=== PATIENT | male | born 1985 | race Two or more races ===

== ENCOUNTER 2016-10-01 12:55 | Inpatient (IN) | payer OTHER ==
[~2016-10-01] VITALS: Ht 175.3 cm; Wt 71.5 kg
[2016-10-01 12:57] VITALS: BP 92/52; PULSE 115; RESP 15; O2SAT 100
[2016-10-01 14:54] VITALS: BP 105/66; PULSE 107; RESP 14; O2SAT 100
--- NOTE | 2016-10-01 15:13 | DRSVH ---
PROCEDURE: X-RAY CHEST ONE VIEW, PORTABLE ([id number]) INDICATIONS: fever, unknown source TECHNIQUE: One view of the chest was acquired. COMPARISON: None. FINDINGS: Surgical changes and devices: None. Lungs and pleura: No pleural effusions or pneumothorax. Lungs are clear. A nodular density in the right mid lung zone is probably caused by the nipple shadow. Mediastinum: Mediastinal contours appear normal. Heart size is normal. Bones and chest wall: No suspicious bony lesions. Overlying soft tissues appear unremarkable. IMPRESSION: No acute cardiopulmonary disease. Dictated by: Kenya Bush M.D. on 10/01/2016 at 15:10 Approved by: Kenya Bush M.D. on 10/01/2016 at 15:11
--- NOTE | 2016-10-01 15:34 | ED.REPORT ---
HPI-Fever Date of Service Oct 01, 2016 ED Provider: Nichole Moran MD 31 y/o male with a hx of meth and heroin use presents to the ED complaining of intermittent fever for a week. This morning, the pt recorded his temperature at 104.2 using oral thermometer. Associated sx include headache that only comes on with the fever, decreased appetite, joint pain and generalized weakness. He denies rash, cough, shortness of breath, rhinorrhea, joint swelling , focal weakness, dysuria, testicular pain, testicular swelling and weight loss.The pt has been taking aspirin and Tylenol regularly. The pt states my girl friend just found out she has HIV while she was at rehab a week ago. Im pretty sure I have HIV. We shared needles. He last used drugs 2 weeks ago. Nursing Notes Stated Complaint: FEVER Chief Complaint: General Complaint Nursing Notes Reviewed: Yes Allergies: Coded Allergies: No Known Allergies (Unverified , 10/01/16) No Active Prescriptions or Reported Meds General Time Seen by MD: 14:25 Chief Complaint Intermittent fever Hx Obtained From: Patient Arrived By: Walk-in Onset Occurred: 1 week ago Symptom Duration: Intermittent Location: : Joint Quality: Painful Severity: Current: Moderate Severity: Maximum: Moderate Recent Healthcare: No recent doctor visit Similar Sx Previous: No Past Medical History Past Medical History Heroin and meth user Past Surgical History denies Smoking History Current Every Day Smoker Social History Drug Use: IV drugs, Meth, THC, Other (heroin) Other Social History: Good social support Ambulatory Status Independent Review of Systems Reports: decreased appetite Denies: weight loss Constitutional: Reports: Fever, Weakness - generalized Respiratory: Denies: Non-productive cough, Shortness of breath Male: Denies Dysuria, Denies Testicular pain, Denies Testicular swelling Skin: Denies Rash Neurologic: Reports: Headache, Denies: Weakness (no focal weakness) Complete sys rev & neg: except as marked. Musculoskeletal: Reports: Joint pain, Denies: Joint swelling Allergy / Immune: Denies: Rhinorrhea Physical Exam Initial Vital Signs Vital Signs (First) Date Time Temp Pulse Resp B/P Pulse Ox O2 Delivery O2 Flow Rate FiO2 10/01/16 12:57 36.5 115 15 92/52 100 Room Air Initial VS: Reviewed Head / Eyes: Atraumatic, Normocephalic Abdomen / GI: Soft, Non-tender Extremities: Vascular intact, Neuro intact, No swelling, No tenderness General/Constitutional: Awake, Alert Distress / Hydration: Positive: Distress moderate Thin Neck: Atraumatic, Supple, Full range of motion Respiratory / Chest: Atraumatic, Breath sounds NL, Breath sounds = bilat, No respiratory distress, No rales, No rhonchi, No wheezing Cardiovascular: Regular rhythm, Heart sounds NL, No gallop, No murmurs, No rubs Heart Rate / Rhythm: Positive: Tachycardia Skin: Atraumatic, No rash, Warm, Dry Scattered scabbed skin lesions No osler nodes No splinter hemorrhages Neurologic: Oriented X3, Speech NL, No motor deficits, No sensory deficits Interpretation & Diagnostics Lab Results Interpretation Result Diagram: 10/01/16 1510 10/01/16 1510 Test 10/01/16 15:10 10/01/16 15:32 10/01/16 15:42 White Blood Count 10.5th/mm3 (3.8-10.1) Red Blood Count 4.89mil/mm3 (4.40-5.80) Hemoglobin 13.1g/dL (13.8-17.2) Hematocrit 37.6% (41.0-50.0) Mean Corpuscular Volume 76.9fL (81-100) Mean Corpuscular Hemoglobin 26.8pg (27.0-35.0) Mean Corpuscular Hemoglobin Concent 34.8% (32.0-37.0) Red Cell Distribution Width 16.0% (12.3-15.4) Platelet Count 68bil/L (150-400) Neutrophils (%) (Auto) 75.7% (40-74) Lymphocytes (%) (Auto) 6.7% (14-46) Monocytes (%) (Auto) 8.6% (4-12) Eosinophils (%) (Auto) 0.4% (0-5) Basophils (%) (Auto) 0.3% (0-3) Sodium Level 126mEq/L (134-144) Potassium Level 4.2mEq/L (3.5-5.2) Chloride Level 90mEq/L (97-108) Carbon Dioxide Level 20mmol/L (18-29) Blood Urea Nitrogen 32mg/dL (6-20) Creatinine 1.09mg/dL (0.76-1.27) Estimat Glomerular Filtration Rate 85mL/min (>59) Glucose Level 104mg/dL (60-99) Calcium Level 8.0mg/dL (8.5-10.1) Magnesium Level 2.3mg/dL (1.6-2.6) Total Bilirubin 1.1mg/dL (0.0-1.2) Aspartate Amino Transf (AST/SGOT) 62U/L (0-50) Alanine Aminotransferase (ALT/SGPT) 21U/L (0-44) Alkaline Phosphatase 168U/L (25-150) Troponin T < 0.010ug/L (0.0-0.011) Total Protein 7.5g/dL (6.4-8.4) Albumin 2.5g/dL (3.4-5.0) Hold Blue Top Tube Received (Received) Procalcitonin 16.15ng/mL (0.00-0.08) Hold [place] Top Tube Received (Received) ECG Interpretation ECG Interpretation: Sinus tachycardia. Rate 107. Time: 15:20 Interpreted by: ED physician X-Ray Chest Interpretation Chest Xray Interpretation: IMPRESSION: No acute cardiopulmonary disease. Dictated by: Kenya Bush M.D. on 10/01/2016 at 15:10 Approved by: Kenya Bush M.D. on 10/01/2016 at 15:11 View: Portable, 1 view Interpretation / Wet Read by: Interpret - Radiologist Procedures Procedure Notes: Ultrasound-guided IV placed in the left upper arm by me Re-Eval/Medical Decision Med Decision/Clinical Course 31-year-old male with history of IV drug abuse, significant other recently diagnosed with HIV presents to the emergency department with fevers over the past week. Differential diagnosis includes endocarditis, acute HIV, bacteremia. Patient has no localizing signs on physical exam or in his symptoms, raising suspicion for endocarditis or viral illness. Patient's case was discussed with infectious disease consultation, recommended testing was ordered for HIV. At this time I do not suspect the patient has AIDS with any AIDS defining occult illnesses, I am more suspicious for acute HIV. Chest x-ray was normal. Patient had tachycardia and developed a fever in the emergency department consistent with sepsis. He was admitted to the hospital with orders for broad-spectrum IV antibiotics including vancomycin and Zosyn, 3 sets of blood cultures were sent for endocarditis, he did have 2 transient episodes of mild hypotension, I believe that this will improve with better fluid hydration which was difficult in the emergency Department due to difficulties with IV access. He was admitted to the [facility] for close monitoring. Re-Evaluation/Progress : Time of Eval: 17:10 Re-Evaluation/Progress Note: Rechecked pt. Rechecked pt. Discussed Discussed lab results, imaging results, diagnosis and plan to admit. Pt understands and agrees with the plan for admission. All questions addressed. Consultation #1: Referral / Consult Name: Hector Rodriguez MD Call Returned at: 15:27 Note: Dr. Rodriguez recommends doing HIV1 and HIV2 test which will come back tomorrow. He also recommends HIV quantitative PCR which will be back in a week and sending serum cryptococcal antigen. Recommends blood cultures, chest X-ray and regular infectious workup. Consultation #2: Referral / Consult Name: Scotty Spain MD Consulted With: Hospitalist Call Returned at: 17:19 Police Clerk: Will see patient, Agrees with eval, Agrees with plan, Accepts admit Severity: Serious condition Counseled Regarding: Diagnosis, Lab results, Need for admission Discharge & Departure Impression: Primary Impression: Fever Fever type: unspecified Qualified Code: R50.9 - Fever, unspecified Disposition: ADMITTED TO HOSPITAL Discharge Condition All VS Reviewed: Yes Referrals: Crissy Gambino MD (PCP) Crit Care Except Billable Proc Time Spent: 30-74 minutes (32) Services Performed: Patient management by me, Time spent at bedside, Reviewing test results, Reviewing imaging, Discussing patient care, Documentation in record Scribe Attestation Portions of this note were transcribed by Jenni Castillo. I,, personally performed the history, physical exam and medical decision-making;I reviewed and confirmed the accuracy of the information in the transcribed note. Signed by Lindsey Cortez. 10/01/16 17:43 copies to: Crissy Gambino MD, Sarah C MD Oct 01, 2016 15:34 Jenni Castillo Oct 01, 2016 15:45
[2016-10-01 15:48] LABS: BASOPHILS % (AUTO) 0.3 % (0-3); EOSINOPHILS % (AUTO) 0.4 % (0-5); MONOCYTES % (AUTO) 8.6 % (4-12); Mean Corpuscular Hemoglobin 26.8 pg (27.0-35.0); Mean Corpuscular Volume 76.9 fL (81-100); NEUTROPHILS % (AUTO) 75.7 % (40-74); Platelet Count 68 bil/L (150-400)
[2016-10-01 15:54] LABS: TROPONIN T < 0.010 ug/L (0.0-0.011)
[2016-10-01 15:59] LABS: Magnesium 2.3 mg/dL (1.6-2.6)
[2016-10-01 16:00] VITALS: BP 94/74; PULSE 113; RESP 22; O2SAT 100
[2016-10-01] MEDS ORDERED: 0.9% Sodium Chloride 1,000 ML IV ONE ×2 (16:50)
[2016-10-01] MEDS ORDERED: Piperacillin-Tazo 3.375 Gm Inj 3.375 GM in Dextrose 5% Minibag Plus 50 ML IV ONE (17:15)
[2016-10-01] MEDS ORDERED: Vancomycin Inj 1,000 MG in IV Premix 1 EACH IV ONE (17:15)
[2016-10-01] MEDS ORDERED: Polyethylene Glycol (PEG) 17 Gm Powder PO PRN (17:50)
[2016-10-01] MEDS: Vancomycin Dose per Pharmacist XX SCH (17:50)
[2016-10-01] MEDS ORDERED: Alum-Mag Hydrox-Simeth 30 mL Suspension PO PRN (17:50)
[2016-10-01] MEDS ORDERED: Sodium Chloride LOK Flush 10 mL Syringe IVFLUSH PRN ×2 (17:55)
[2016-10-01 18:00] VITALS: BP 94/42; PULSE 119; RESP 19; O2SAT 100
--- NOTE | 2016-10-01 18:00 | PCM.HPMED ---
Subjective Date of Service Oct 01, 2016 Primary Provider: Admitting Physician: Scotty Spain MD Primary Care Physician: Crissy Gambino MD Attending Physician: Scotty Spain MD Admit Status: From the Emergency Department, Full Admit, Admit to [facility] Team, [facility] Telemetry Chief Complaint: Fevers and myalgias. History of Present Illness: This is an unfortunate 31-year-old male with a 15 year history of IV drug use. He injects primarily heroin. He also smokes crack. He has not used for about 2 weeks and has been ill for over a week with intermittent fevers myalgias and severe malaise. He denies any diarrhea, no rhinorrhea. He has had minimal photophobia. He has had headache when he does have the fevers but denies any neck stiffness. He also denies symptoms with urination but has become more dehydrated and notes his urine volume and this decreased in color is darker. He denies any diarrhea. He also denies cough or dyspnea. No orthopnea or pedal edema. GI denies any obvious skin lesions or lumps. He does have track hart extensively over her arms and legs and feet and primarily uses his lower extremities at this point for injection. He does not use his groins for injection. He denies any dysuria. He also denies any lymphadenopathy. Chest x-ray was clear multiple blood cultures were obtained. The case was discussed with Dr. Rodriguez. The patient had noted that his girlfriend, who is in rehabilitation currently, was recently diagnosed as being HIV positive. He has not been tested recently. There was concern about acute HIV seroconversion. HIV 1 and 2 as well as a PCR are ordered and pending. The patient reports no history of hepatitis. Review of Systems: All else reviewed and otherwise unremarkable except as noted in history of present illness Allergies Coded Allergies: No Known Allergies (Unverified , 10/01/16) Home Medications Tylenol as needed for pain or fever Ibuprofen as needed for pain or fever PMH IV drug use with heroin primarily Methamphetamine abuse Heroin dependence Surgical History None Family History Negative for history of IV drug dependence Social History Occupation: None Hx Alcohol Use: No (no) Hx Substance Use: Yes (IV meth and herion) Smoking Status: Current Every Day Smoker Living Arrangement: with Family Exam Vital Signs Vital Sign - Last Date Time Temp Pulse Resp B/P Pulse Ox O2 Delivery O2 Flow Rate FiO2 10/01/16 16:00 37.7 113 22 94/74 100 Room Air Exam Oriented 3. Uncomfortable. Fluent speech. Normal affect. Normal skull. Normal nose and ears. Anicteric sclera, symmetric pupils Oropharynx is unremarkable, no facial droop. Neck is supple, normal thyroid. No adenopathy. Lungs are clear, normal effort rate. Heart is regular without murmur gallop or rub., He is tachycardic. Abdomen soft, nondistended or tender. No organomegaly or focal tenderness. Extremities are free of pedal edema. Good radial and pedal pulses. He has a rapid and dynamic pulse Skin is notable for track hart over her arms and legs. No groin lesions. The patient has mild redness and flushing over his upper posterior back. There are no areas of obvious fluctuance and induration or swelling. Cranial nerves are grossly normal. Motor strength is normal in all extremities. Normal muscular tone. No neck stiffness. Lab and Diagnostics Result Diagram: 10/01/16 1510 10/01/16 1510 Assessment & Plan Febrile illness in patient with possible early sepsis, POA. The patient has a low-grade fever, tachycardia, and relative hypotension with systolic blood pressure of 92. The patient also has an elevated lactic acid. He is at risk for bacteremia and/or endocarditis. The plan is fluid resuscitation aggressively with similar 150, serial lactic acid, blood cultures 3 were drawn and obtained, PICC line for IV access, as well as empiric antibiotics with vancomycin and Zosyn. We will also obtain a 2-D echocardiogram to rule out endocarditis. HIV 1 and 2 pending, will add acute hepatitis panel as well. Volume depletion, POA. Resuscitation as outlined above Hypovolemic hyponatremia, POA. Fluid resuscitation with saline as outlined above Lactic acidosis, POA. Fluid resuscitation as above Continuous opiate dependence, heroin addiction. POA. Last used 2 weeks ago, low risk for withdrawal syndrome. Methamphetamine abuse syndrome, POA. Last use 2 weeks ago. Follow clinically. Patient is full resuscitation. Patient is admitted inpatient status withan estimated length of stay of over 2 nights. Pain Evaluation: Adequate Pain Control Resuscitation Status: CPR: Attempt Resuscitation Time spent 50 minutes Scotty Spain MD Oct 01, 2016 18:00
--- NOTE | 2016-10-01 18:31 | PCM.PHAPRO ---
Progress Date of Service: Oct 01, 2016 Fevers and myalgias. Vancomycin Management per Pharmacy: Indication: Bacteremia: fever/myalgia in a patient w/ history of IV heroine/ meth use Goal Trough: 15-20 mg/dL Labs: WBC: 10.5 Lactate: 2.7 Procalcitonin: 16.15 SrCr: 1.09 mg/dL Est CrCl: ~90 mL/min Vitals: Temp: 39.4 HR: ~120s BPM BP: 92/52 mm HG Resp Rate: 20s Nephrotoxic Risk Factors: Zosyn IV, BP is a little low but currently maintaining, pt currently being hydrated w/ NS @ 150 mL/hr Recommendation: Load: Vancomycin 1000 mg IV x 1 (given in ED) Maintenance: Vancomycin 1000 mg IV q8h (~17 mg/kg/dose) - dosing a bit higher due to youth (31 yo), male, sepsis, high heart rate due to combo of sepsis/meth , pt will likely have enhanced drug clearance due to all of these factors. Monitor SrCr and blood pressure and decrease if needed. Vanco Trough: Draw on 10/03 @ 0730 prior to 4th maintenance dose Pharmacy to continue to monitor and adjust dose as needed. Thank You, Dali Toussaint, Pharm D. Dali Toussaint Oct 01, 2016 18:31
[2016-10-01 18:44] VITALS: PULSE 117
--- NOTE | 2016-10-01 18:45 | NUR ---
Admit to [facility] Pt admitted to [facility] room 2026 from Emergency department. Report received from Tiffanie WOOD. Transferred by meagan and moved to hospital bed with 2 PA. Pt is alert and oriented. C/O chill, fever, sweating profusely. PIV x 2 with Vancomycin running @ 133mls/hr. Orders to obtain UA and to start NS IV fluid @ 150mls/hr. Pt able to void independently using urinal. Urine sent for testing. Pt's mother is at bedside. Care continues.
[2016-10-01 18:54] VITALS: BP 93/46; PULSE 72; RESP 20; O2SAT 93
[2016-10-01 19:37] LABS: APPEARANCE,URINE HAZY (CLEAR,HAZY); COLOR,URINE DARK YELLOW (YELLOW); OCCULT BLOOD,URINE SMALL (NEGATIVE); UROBILINOGEN,URINE NORMAL (NORMAL)
[2016-10-01] MEDS: 0.9% Sodium Chloride 1,000 ML IV SCH (20:32)
[2016-10-02] VITALS (8 sets, daily range): BP systolic 101–137; BP diastolic 58–80; PULSE 75–86; RESP 16–22; O2SAT 96–100
[2016-10-02] MEDS ORDERED: Piperacillin-Tazo 3.375 Gm Inj 3.375 GM in Dextrose 5% Minibag Plus 50 ML IV SCH ×2 (00:30→22:30)
[2016-10-02] MEDS: Heparin 5,000 Unit/mL Inj SUBQ SCH ×4 (00:30→17:57)
[2016-10-02] MEDS: Vancomycin 1 Gm/200 mL NS Premix IV SCH ×3 (00:58→17:56)
[2016-10-02] MEDS: 0.9% Sodium Chloride 1,000 ML IV SCH ×4 (03:05→21:23)
[2016-10-02] MEDS: Ondansetron 2 mg/mL 2 mL Inj IVPUSH PRN (03:05)
[2016-10-02 04:10] LABS: BASOPHILS % (AUTO) 0.2 % (0-3); EOSINOPHILS % (AUTO) 0.1 % (0-5); MONOCYTES % (AUTO) 12.9 % (4-12); Mean Corpuscular Hemoglobin 26.9 pg (27.0-35.0); Mean Corpuscular Volume 77.8 fL (81-100); Platelet Count 56 bil/L (150-400)
[2016-10-02 04:41] LABS: NEUTROPHILS % (AUTO) 80.6 % (40-74)
--- NOTE | 2016-10-02 05:32 | NUR ---
Emesis/Diarrhea/fever Had one large emesis , 2 large diarrhea,denied pain, A&O x3 using call light appropriately, Temp . 38.3, gave 650 tylenol . 8 Mg Zofran IV., very diaphoretic . 2 complete bed and gown changes Room air, bilateral peripheral IV , arms. intact and patent. Tele 75. Addendum: 10/02/16 at 0614 by TAE HER RN Skin issues: has many small scabs throughout , arms, legs, knees, says it is from IV drug use , has admitted poly drug abuse, possible association w HIV positive friends, Is grateful for care provided and polite. Addendum: 10/02/16 at 0633 by TAE HER RN The pt states my girl friend just found out she has HIV while she was at rehab a week ago. "Im pretty sure I have HIV. We shared needles". He last used drugs 2 weeks ago.
[2016-10-02 07:11] LABS: Hepatitis A Antibody IgM Negative (Negative); Hepatitis B Core Antibody IgM Negative (Negative)
--- NOTE | 2016-10-02 07:29 | PCM.PNMED ---
Subjective Date of Service Oct 02, 2016 Subjective Patient feels much better today. He is having fevers overnight. He is less myalgias. He denies a cough or dyspnea. No nausea. No diarrhea. Overnight multiple blood cultures staph aureus positive consistent with probable endocarditis. Hepatitis C antibodies and reflex PCR positive. Exam Vital Signs Vital Sign - Last Date Time Temp Pulse Resp B/P Pulse Ox O2 Delivery O2 Flow Rate FiO2 10/02/16 05:27 86 10/02/16 03:45 38.3 20 137/80 98 Room Air Intake and Output 10/01/16 10/01/16 10/02/16 Cumulative From/Thru 15:00 23:00 07:00 10/01/16 12:57 - 10/02/16 06:07 Intake Total 2000 ml 1420 ml 3420 ml Output Total 1750 ml 1750 ml Balance 2000 ml -330 ml 1670 ml Intake IV Total 2000 ml 1420 ml 3420 ml Output Urine Total 750 ml 750 ml Urine/Stool Mix 600 ml 600 ml Emesis 400 ml 400 ml # Bowel Movements 2 2 Exam Alert and oriented -3, no distress. Fluent speech Anicteric sclera. Lungs are clear with normal rate and effort Heart is regular without murmur gallop or rub Abdomen soft nontender, flat Extremities are free of edema. Skin is notable for numerous track hart on the legs and arms. Poor dentition IVs and Medications Medications Reviewed: Medications were reviewed in detail Lab and Diagnostics Result Diagram: 10/02/1634410/02/16344 Assessment & Plan #. Probable endocarditis, staph aureus. POA. The plan is to continue empiric antibiotics. Will stop Zosyn and continue vancomycin. We will await echo today. #. Hepatitis C, POA. No diagnosis. #. Volume depletion, POA. Improving continue Resuscitation. #. Hypovolemic hyponatremia, POA. Improving, continue Fluid resuscitation with saline as outlined above #. Lactic acidosis, POA. Resolved #. Continuous opiate dependence, heroin addiction. POA. Last used 2 weeks ago , low risk for withdrawal syndrome. #. Methamphetamine abuse syndrome, POA. Last use 2 weeks ago. Follow clinically. Patient is full resuscitation. Patient is admitted inpatient status withan estimated length of stay of over 2 nights. Resuscitation Status: CPR: Attempt Resuscitation Scotty Spain MD Oct 02, 2016 07:29
[2016-10-02] MEDS: Vancomycin Dose per Pharmacist XX SCH (07:41)
--- NOTE | 2016-10-02 12:45 | DRSVH ---
[facility] [address] [place] [address] Echocardiogram Report Name: ORLIN BLACKMON Study Date: 10/02/2016 Height: 69 in Hospital Exam Location: [facility] Weight: 138 lb Gender: Male BSA: 1.8 m2 : 1985 Age: 31 yrs BP: 137/80 mmHg Reason For Study: FEVER, ENDOCARDITIS Ordering Physician: HOSPITALIST ROSENDOHPerformed By: Jimy Briggs Referring Physician: JEFFERY ASH Interpretation Summary The study quality was technically excellent. The left ventricle is normal in size. Left ventricular systolic function is normal without focal wall motion abnormalities. Left ventricular ejection fraction is estimated to be 55%. The right ventricle is normal in size, thickness and function. The right ventricular systolic pressure is estimated at 25 mmHg assuming a right atrial pressure of 3 mm Hg. Both atria are normal in size. There is no vegetation seen on the mitral valve, aortic valve, or pulmonic valve. There is a moderate size vegetation or mass on the tricuspid valve. The mass is located on the posterior tricuspid leaflet. There is mild tricuspid regurgitation. The aortic root is normal size. Procedure: A two-dimensional transthoracic echocardiogram with color flow and Doppler was performed. The study quality was technically excellent. There is no prior echocardiogram noted for this patient. The patient was in normal sinus rhythm during the exam. Left Ventricle: The left ventricle is normal in size. There is normal left ventricular wall thickness. Left ventricular systolic function is normal without focal wall motion abnormalities. Left ventricular ejection fraction is estimated to be 55%. Assessment of diastolic parameters indicates normal left ventricular diastolic function and normal filling pressures. Right Ventricle: The right ventricle is normal in size, thickness and function. Atria: Both atria are normal in size. The interatrial septum is intact with no evidence for an atrial septal defect. Mitral Valve: The mitral valve is normal. There is no vegetation seen on the mitral valve. There is trace mitral regurgitation. Aortic Valve: The aortic valve is normal in structure and function. There is no aortic valvular vegetation. No aortic regurgitation is present. Tricuspid Valve: There is a moderate size vegetation or mass on the tricuspid valve. The mass is located on the posterior tricuspid leaflet. There is mild tricuspid regurgitation. The right ventricular systolic pressure is estimated at 25 mmHg assuming a right atrial pressure of 3 mm Hg. Pulmonic Valve: The pulmonic valve leaflets are thin and pliable; valve motion is normal. There is no vegetation on the pulmonic valve. There is trace pulmonic regurgitation. Great Vessels: The aortic root is normal size. The dimensions of the ascending aorta are normal. The pulmonary artery is normal size. The IVC is of normal diameter and collapses greater than 50% with a sniff. This suggests a low right atrial pressure of 3 mm Hg. Pericardium/ Pleura There is no pericardial effusion. There is no pleural effusion. MMode/2D Measurements & Calculations LVIDd: 4.6 cm RA long axis LVOT diam: 2.3 cm LVIDs: 3.2 cm LA A2 area: 14.3 cm AoV Opening FS: 31.6 % LA A4 area: 15.7 cm RA area EPSS: 0.06 cm LA length (vol) Ao root diam IVSd: 0.99 cm : 14.5 cm LVPWd: 0.93 cm LA vol: 40.3 ml RA vol asc Aorta Diam LA vol index : 36.5 ml RA Ao Arch Diam (Prox : 20.7 mm2 Trans): 2.7 cm IVC diam: 1.8 cm LV patel. diameter/BSA LV sys. diameter/BSA TAPSE: 3.0 cm (cm/m^2): 2.6 (cm/m^2): 1.8 Doppler Measurements & Calculations Ao V2 max MV E max lenard MV E/A: 1.6 TR max lenard : 128.0 cm/sec : 93.9 cm/sec Med Peak E' Lenard : 235.7 cm/sec Ao max P.5 mmHg MV A max lenard TR max PG Ao mean P.3 mmHg : 60.2 cm/sec E/E' med: 10.0 : 22.2 mmHg LVOT Max Lenard Lat Peak E' Lenard PA V2 max : 119.2 cm/sec : 102.5 cm/sec E/E' lat: 5.1 PA mean PG MONICA(I,D): 3.9 cm E/e' average: 7.6 : 2.0 mmHg sev ratio: 0.95 MV dec time: 0.18 sec Ao V2 mean LV V1 max PG PA V2 mean : 85.2 cm/sec : 67.9 cm/sec Ao V2 VTI LV V1 VTI: 22.0 cm PA pr(Accel) : 30.2 mmHg MONICA(V,D): 3.8 cm2 MONICA indexed to BSA (cm^2/m^2): 2.2 Reading Physician:SIENNA
--- NOTE | 2016-10-02 16:53 | DRSVH ---
PROCEDURE: X-RAY PICC LINE PLACEMENT BY NURSE ([id number]) INDICATIONS: access COMPARISON: [facility], CR, XR CHEST 1VW (PORTABLE), 10/01/2016, 14:48. FINDINGS: PICC was placed by the intravenous therapy team from the right side. Fluoroscopic spot fi lm demonstrates tip of PICC in the superior vena cava. IMPRESSION: Tip of PICC lies within the superior vena cava. Dictated by: Kenya Bush M.D. on 10/02/2016 at 16:51 Approved by: Kenya Bush M.D. on 10/02/2016 at 16:51
--- NOTE | 2016-10-02 17:34 | NUR ---
VTACH No reports of chest pain/pressure/discomfort. Tele SR 80s-low 100s no ectopy this AM until approx 1500 had three seperate instances of VTACH varying from 5 to 19 beats (asymptomatic), adminstered 12.5mg PO Metoprolol per MD orders, nothing further after 1540. Distal pulses strong and palpable. No edema noted. No reports of SOB/dizziness. SPO2 high 90s on RA. Denies cough. No reports of n/v, dark green loose BM this afternoon. Denies abdominal pain. Alert and oriented x3, STEIN, reports full sensation. Moderate decrease in strength r/t "joint pain with movement" per patient.
[2016-10-03] VITALS (10 sets, daily range): BP systolic 90–131; BP diastolic 64–78; PULSE 72–86; RESP 16–28; O2SAT 96–99
[2016-10-03] MEDS: Vancomycin 1 Gm/200 mL NS Premix IV SCH (01:00)
[2016-10-03] MEDS: Heparin 5,000 Unit/mL Inj SUBQ SCH ×3 (01:01→16:41)
[2016-10-03] MEDS: Ondansetron 2 mg/mL 2 mL Inj IVPUSH PRN (01:06)
--- NOTE | 2016-10-03 04:25 | NUR ---
V-Tach/Meds/pain Gave 8 Mg Zofran for nausea associated w Vanco, he experiences chills and nausea during infusion, 650 Tylenol PO for generalized pain . room air, Has had several 4-7 beat runs of V-Tach, asymptomatic . A&O x3 using call light appropriately, compliant and polite , appreciative to care givers, Sister Bertha visiting at beginning of shift , patient has family support. Tele: SR mid 70's w asymptomatic runs of V-Tach.
[2016-10-03 05:07] LABS: Mean Corpuscular Hemoglobin 26.8 pg (27.0-35.0); Mean Corpuscular Volume 77.8 fL (81-100)
[2016-10-03] MEDS: 0.9% Sodium Chloride 1,000 ML IV SCH ×4 (05:22→23:06)
[2016-10-03] MEDS ORDERED: Vancomycin Serum Trough XX ONE (07:30)
[2016-10-03] MEDS: Vancomycin Dose per Pharmacist XX SCH (08:30)
--- NOTE | 2016-10-03 10:07 | PCM.PHAPRO ---
Progress Fevers and myalgias. VANCOMYCIN DOSING S/O: * indication: bacteremia, BCx G+ cocci, PCT 5.71 * current regimen vanco 1000mg q 8 hours * VANCO TROUGH 14.4 DRAWN @ 0740 * time since last dose to trough 6.4 hrs * SCr 0.74 10/02 A/P: * trough low approx. 10% * increasing dose, rather than shortening interval * re-check vanco. trough after 3rd new dose trough@1600 on 10/04 * new vanco dose 1100mg q 8h Savanah Childers Pharm.D Oct 03, 2016 10:01
--- NOTE | 2016-10-03 10:34 | PCM.PNMED ---
Subjective Date of Service Oct 03, 2016 Subjective Overnight, nursing reports some nausea associated with Vanco, which improved with Zofran.Tylenol PO given for generalized pain. No fever. Today, patient reports to feel much better today. He is less myalgias. He denies a cough, SOB, CP, palpitations, headache, dizziness, or diarrhea. Exam Vital Signs Vital Sign - Last Date Time Temp Pulse Resp B/P Pulse Ox O2 Delivery O2 Flow Rate FiO2 10/03/16 05:44 37.2 73 20 109/64 96 Room Air Intake and Output 10/02/16 10/02/16 10/03/16 Cumulative From/Thru 15:00 23:00 07:00 10/01/16 12:57 - 10/03/16 06:55 Intake Total 1446 ml 3506 ml 8372 ml Output Total 2 ml 1752 ml Balance 1446 ml 3504 ml 6620 ml Intake Oral 1800 ml 1800 ml IV Total 1446 ml 1706 ml 6572 ml Output Urine Total 750 ml Urine/Stool Mix 2 ml 602 ml Emesis 400 ml # Bowel Movements 2 Exam General: Alert and oriented x3, no distress. Fluent speech. Appropriately interactive. HEENT: NCAT, Anicteric sclera. Mucosal membrane moist. Poor dentition. Lungs: clear to auscultation with normal rate and effort Cardio: regular rate and rhythm without murmur, gallop, or rub Abdomen: soft, nondistended, nontender, normoactive bowel sound. Extremities: free of edema, cyanosis, or clubbing. Mild tenderness to palpation in the DIP and PIP joints of bilateral hands. Skin: numerous track hart on the legs and arms. Diffuse excoriations that patient attributes to skin picking. Neuro: CN II-XII intact, sensation grossly intact, moving all extremities. Psych: normal mood and affect. Poor judgement and insight. IVs and Medications Medications Reviewed: Medications were reviewed in detail Lab and Diagnostics Result Diagram: 10/03/16 0500 10/02/16 5889 Cardiac Echo Impressions Interpretation Summary The study quality was technically excellent. The left ventricle is normal in size. Left ventricular systolic function is normal without focal wall motion abnormalities. Left ventricular ejection fraction is estimated to be 55%. The right ventricle is normal in size, thickness and function. The right ventricular systolic pressure is estimated at 25 mmHg assuming a right atrial pressure of 3 mm Hg. Both atria are normal in size. There is no vegetation seen on the mitral valve, aortic valve, or pulmonic valve. There is a moderate size vegetation or mass on the tricuspid valve. The mass is located on the posterior tricuspid leaflet. There is mild tricuspid regurgitation. The aortic root is normal size. Assessment & Plan 31-year-old male with a 15 year history of IV drug use, primarily heroin, presenting to the hospital for a week of intermittent fevers myalgias and severe malaise. The patient had noted that his girlfriend, who is in rehabilitation currently, was recently diagnosed as being HIV positive. #. Acute endocarditis, staph aureus. POA, active. - Blood culture positive for staph aureus, pending result for methicillin resistance status. - Echo shows vegetations on the tricuspid valve as above. - continue vancomycin per pharmacy. - Repeat blood culture today. - Follow clinically. #. Hepatitis C, POA, active. - HCV genotype and Quantitative ordered. - Defer to outpatient follow up with GI. #. Volume depletion, POA. Improving continue Resuscitation. Continue NS at 150mls/hr. #. Hypovolemic hyponatremia, POA. Improving, continue Fluid resuscitation with saline as outlined above #. Lactic acidosis, POA. Resolved #. Continuous opiate dependence, heroin addiction. POA. Last used 2 weeks ago , low risk for withdrawal syndrome. #. Methamphetamine abuse syndrome, POA. Last use 2 weeks ago. Follow clinically. Patient is full resuscitation. Patient is admitted inpatient status withan estimated length of stay of over 2 nights. Pain Evaluation: Adequate Pain Control Resuscitation Status: CPR: Attempt Resuscitation Attending Statement Mr. Ayers was seen and examined with Dr. Rivero on October 03. I participated in all aspects of this service. I agree with her assessment and plan and documentation. Sri Rivero DO Oct 03, 2016 07:42 Scotty Spain MD Oct 03, 2016 15:40
[2016-10-03] MEDS: Vancomycin Inj 1,250 MG in 0.9% Sodium Chloride 250 ML IV SCH (16:42)
--- NOTE | 2016-10-03 16:58 | NUR ---
Social Work- Multidisciplinary Rounds Pt discussed in rounds. Pt has endocarditis and will require long hospitalization for treatment. ID is following. SW requested to see pt related to IVDU. SW unable to see pt today due to high census. SW will continue to follow to complete CD assessment. Frida Smith MSW
--- NOTE | 2016-10-03 18:28 | NUR ---
Chills Patient experienced mod-sev chills in early afternoon after a shower, warm blankets x 2 given, afebrile, eventually resolved after 15 minutes. Patient continues to receive vancomycin, trough 14.4 this a.m.
[2016-10-03] MEDS: HYDROcodone-APAP 5-325 mg Tablet PO PRN (18:34)
--- NOTE | 2016-10-03 18:41 | NUR ---
Pain Patient c/o 09/20 left abd pain, first incidence of pain during shift. [place] x 2 admin, will continue to monitor efficacy.
[2016-10-04] VITALS (7 sets, daily range): BP systolic 110–119; BP diastolic 60–76; PULSE 69–83; RESP 16–24; O2SAT 96–98
[2016-10-04] MEDS: Vancomycin Inj 1,250 MG in 0.9% Sodium Chloride 250 ML IV SCH (00:14)
[2016-10-04] MEDS: Heparin 5,000 Unit/mL Inj SUBQ SCH ×3 (00:44→16:42)
[2016-10-04] MEDS: 0.9% Sodium Chloride 1,000 ML IV SCH (01:52)
[2016-10-04 04:35] LABS: BASOPHILS % (AUTO) 0.1 % (0-3); EOSINOPHILS % (AUTO) 0.7 % (0-5); MONOCYTES % (AUTO) 7.1 % (4-12); Mean Corpuscular Hemoglobin 26.8 pg (27.0-35.0); Mean Corpuscular Volume 78.8 fL (81-100); NEUTROPHILS % (AUTO) 79.7 % (40-74); Platelet Count 143 bil/L (150-400)
--- NOTE | 2016-10-04 06:28 | NUR ---
NOC PT is a very pleasant and appreciative young man. PT does appear quite ill. At one point RN was called into the room as pt was having severe rigors. His temp at the time was only 37.6, but pt was shaking violently. PT also was c/o severe L sided abdominal pain. Morphine and tylenol were administered with good relief. Demerol was requested, but no order has been received at this time. PT is up ad ronnie to the bathroom. Lab called to report 2/2 gram+ cocci probable staph. This was passed to Dr Nava via text. No arrythmias noted this shift. PT has been in SR. R PICC works well. WBC increased this am to 22.5. Talked to pt about his desire to achieve sobriety again and states that his SO has been sober for over 6 months. WIll CTM at this time and continue with IV abx per MD notes.
[2016-10-04] MEDS ORDERED: KCl 40 mEq/D5W 500 mL 40 MEQ in IV Premix 1 EACH IV ONE (08:10)
[2016-10-04] MEDS ORDERED: CeFAZolin Inj 1 GM in IV Premix 1 EACH IV SCH (09:10)
[2016-10-04] MEDS: HYDROcodone-APAP 5-325 mg Tablet PO PRN (09:23)
--- NOTE | 2016-10-04 11:23 | NUR ---
Social Work Note: Multidisciplinary Rounds Pt discussed in AM rounds today, Per MD pt condition is unchanged. Pt will require long hospitalization for IV abx treatment due to endocarditis. ID is following. SW will continue to follow to complete substance use assessment pending MD order. RAZ Garcia
[2016-10-04] MEDS: Nafcillin Inj 2,000 MG in Dextrose 5% Minibag Plus 100 ML IV SCH ×3 (12:27→19:35)
[2016-10-04] MEDS ORDERED: Vancomycin Serum Trough XX ONE (16:00)
--- NOTE | 2016-10-04 18:02 | NUR ---
ABX Pt's ABX switch to Nafcillin per MD's order. pt tolerated infusion well.
--- NOTE | 2016-10-04 18:12 | PCM.PNMED ---
Subjective Date of Service Oct 04, 2016 Subjective Overnight, Patient reports "rough" night. Didn't sleep well, however feels okay today. Today, patient reports to feel much better today. He headache, dizziness, sore throat, cough, chest pain, shortness of breath, abdominal pain, nausea, vomiting , constipation, and diarrhea. Exam Vital Signs Vital Sign - Last Date Time Temp Pulse Resp B/P Pulse Ox O2 Delivery O2 Flow Rate FiO2 10/04/16 16:45 37.3 73 22 113/72 98 Room Air Intake and Output 10/03/16 10/03/16 10/04/16 Cumulative From/Thru 15:00 23:00 07:00 10/01/16 12:57 - 10/04/16 06:41 Intake Total 3121 ml 400 ml 85751 ml Output Total 700 ml 600 ml 3052 ml Balance 2421 ml -200 ml 8841 ml Intake Oral 1638 ml 400 ml 3838 ml IV Total 1483 ml 8055 ml Output Urine Total 600 ml 1350 ml Stool Total 700 ml 700 ml Urine/Stool Mix 602 ml Emesis 400 ml # Voids 4 3 7 # Bowel Movements 2 Exam General: Alert and oriented x3, no distress. Fluent speech. Appropriately interactive. HEENT: NCAT, Anicteric sclera. Mucosal membrane moist. Poor dentition. Lungs: clear to auscultation with normal rate and effort Cardio: regular rate and rhythm without murmur, gallop, or rub Abdomen: soft, nondistended, nontender, normoactive bowel sound. Extremities: free of edema, cyanosis, or clubbing. Mild tenderness to palpation in the DIP and PIP joints of bilateral hands. Skin: numerous track hart on the legs and arms. Diffuse excoriations that patient attributes to skin picking. Neuro: CN II-XII intact, sensation grossly intact, moving all extremities. Psych: normal mood and affect. Poor judgement and insight. IVs and Medications Medications Reviewed: Medications were reviewed in detail Lab and Diagnostics Result Diagram: 10/04/1641410/04/16414 Cardiac Echo Impressions Interpretation Summary The study quality was technically excellent. The left ventricle is normal in size. Left ventricular systolic function is normal without focal wall motion abnormalities. Left ventricular ejection fraction is estimated to be 55%. The right ventricle is normal in size, thickness and function. The right ventricular systolic pressure is estimated at 25 mmHg assuming a right atrial pressure of 3 mm Hg. Both atria are normal in size. There is no vegetation seen on the mitral valve, aortic valve, or pulmonic valve. There is a moderate size vegetation or mass on the tricuspid valve. The mass is located on the posterior tricuspid leaflet. There is mild tricuspid regurgitation. The aortic root is normal size. Assessment & Plan 31-year-old male with a 15 year history of IV drug use, primarily heroin, presenting to the hospital for a week of intermittent fevers myalgias and severe malaise. The patient had noted that his girlfriend, who is in rehabilitation currently, was recently diagnosed as being HIV positive. Acute endocarditis, staph aureus. Present on admission, Active. - Blood culture positive for staph aureus, methicillin sensitive. - Echo shows vegetations on the tricuspid valve as above. - Switch from vancomycin to Nafcillin. Hepatitis C, Present on admission, Active. - HCV genotype and Quantitative pending. - Defer to outpatient follow up with GI. - HIV pending. Volume depletion, Present on admission. Resolved. - Improving continue Resuscitation. - Hypovolemic hyponatremia, Present on admission.Resolved. - Improving, continue Fluid resuscitation with saline as outlined above Lactic acidosis, Present on admission. Resolved. Continuous opiate dependence, heroin addiction. Present on admission. Active. Last used 2 weeks ago, low risk for withdrawal syndrome. Methamphetamine abuse syndrome, Present on admission. Active.. - Last use 2 weeks ago. - Follow clinically. Patient is full resuscitation. Patient is admitted inpatient status within estimated length of stay of over 2 nights. Pain Evaluation: Adequate Pain Control Resuscitation Status: CPR: Attempt Resuscitation Attending Statement The patient was seen and examined together with Dr. Carrera on 10/03/2016 and I agree with the history, exam findings, and plan as outlined in the note above. I did participate in all aspects of the services provided today, including documentation and the plan of care. Patient has MSSA endocarditis of the tricuspid valve. The patient will be placed on nafcillin 2 g every 4 hours. We will follow cultures at 24 and 48 hrs. to prove sterility. LEDY CARRERA DO Oct 04, 2016 18:07 Scotty Spain MD Oct 05, 2016 11:15
--- NOTE | 2016-10-04 19:16 | NUR ---
VTach At approximately 1900 pt has 67 beats of VTach with a few SR beats in the run of VTach. MD was paged and made aware. STAT potassium was drawn and sent to lab. Waiting for results from the lab draw. Addendum: 10/05/16 at 0622 by SHAMA WELCH RN Pt is now on Amiodarone drip at 16.7ml/hr. Amiodarone drip will be completed 10/05/2016 at 2114. Pt has had no further VTach throughout the shift.
[2016-10-04] MEDS ORDERED: Amiodarone 150 mg/100 mL D5W 150 MG in IV Premix 1 EACH IV ONE (19:55)
[2016-10-04] MEDS ORDERED: Amiodarone 360 mg/200 mL D5W 360 MG, Filter, Taxol 14256-28 1 EACH in IV Premix 1 EACH IV ONE (19:55)
[2016-10-04] MEDS ORDERED: Potassium Chloride 20 mEq/15 mL 15mL Oral Soln PO ONE (20:45)
[2016-10-04] MEDS ORDERED: IV Premix 1 EACH IV ONE (20:56)
[2016-10-04] MEDS ORDERED: Amiodarone 360 mg/200 mL D5W Premix IV ONE (20:56)
[2016-10-05] VITALS (7 sets, daily range): BP systolic 113–122; BP diastolic 64–73; PULSE 61–81; RESP 16–24; O2SAT 97–100
[2016-10-05] MEDS: Heparin 5,000 Unit/mL Inj SUBQ SCH ×4 (00:30→23:42)
[2016-10-05] MEDS: Nafcillin Inj 2,000 MG in Dextrose 5% Minibag Plus 100 ML IV SCH ×7 (01:02→23:42)
[2016-10-05] MEDS: Amiodarone 360 mg/200 mL D5W IV SCH ×2 (03:14→15:10)
--- NOTE | 2016-10-05 06:41 | NUR ---
Chest Pain At approximately 2230 pt c/o 8/10 chest pain and a STAT EKG was ordered. EKG appeared SR. Pt had recently received 40mEq of potassium PO and did not want to eat anything with it. After administering the potassium pt chose to lie down in bed. It was after this that the pt's chest pain began. Pt was given Maalox but pt says that it did not help with the chest pain. Pt continues to c/o chest pain when asked.
[2016-10-05 08:34] LABS: BASOPHILS % (AUTO) 0.2 % (0-3); EOSINOPHILS % (AUTO) 0.6 % (0-5); MONOCYTES % (AUTO) 6.1 % (4-12); Mean Corpuscular Hemoglobin 27.2 pg (27.0-35.0); Mean Corpuscular Volume 79.9 fL (81-100); NEUTROPHILS % (AUTO) 79.5 % (40-74); Platelet Count 200 bil/L (150-400)
--- NOTE | 2016-10-05 14:46 | NUR ---
Social Work Note: Initial Assessment/Multidisciplinary Rounds Data& Assessment: EMR reviewed. Pt was discussed in AM rounds today, per MD pt will be here for 6 weeks of IV abx due to endocarditits. ABRAM met with pt at bedside to discuss discharge planning, SW role explained, Discharge Planning Checklist provided. Oleksandr Ayers is a 31 year old male admitted on 10/01/2016 for Sepsis and fever. Pt has [employer] insurance coverage and does not have a PCP a this time, pt declined at this time. SW to follow up with pt regarding PCP appointment closer to D/C. Pt lives in [place] with a friend and is independent at baseline with all ADL's. Pt does not use any DME and he drives. Pt does not have HH or SNF hx. Pt does not have LTC insurance or VA benefits. ABRAM provided pt with DPOA/AD paperwork. Pt denies any other needs. No other discharge needs or MD orders identified at this time. Plan: Anticipated discharge home via POV after IV abx course is completed. Pt denies any other needs. No other discharge needs or MD orders identified at this time. RAZ Garcia Addendum: 10/05/16 at 1459 by BRIAN RENO Amended: Links added.
--- NOTE | 2016-10-05 19:17 | PCM.PNMED ---
Subjective Date of Service Oct 05, 2016 Subjective Overnight events: NONE. Today, patient reports feeling much better today. He headache, dizziness, sore throat, cough, chest pain, shortness of breath, abdominal pain, nausea, vomiting , constipation, and diarrhea. Exam Vital Signs Vital Sign - Last Date Time Temp Pulse Resp B/P Pulse Ox O2 Delivery O2 Flow Rate FiO2 10/05/16 17:42 37.5 69 16 117/64 97 Room Air Intake and Output 10/04/16 10/04/16 10/05/16 Cumulative From/Thru 15:00 23:00 07:00 10/01/16 12:57 - 10/05/16 06:38 Intake Total 1445 ml 1374 ml 41956 ml Output Total 900 ml 3952 ml Balance 1445 ml 474 ml 47236 ml Intake Oral 1220 ml 500 ml 5558 ml IV Total 225 ml 874 ml 9154 ml Output Urine Total 100 ml 1450 ml Stool Total 800 ml 1500 ml Urine/Stool Mix 602 ml Emesis 400 ml # Voids 3 1 11 # Bowel Movements 1 1 4 Exam General: Alert and oriented x3, no distress. Fluent speech. Appropriately interactive. HEENT: NCAT, Anicteric sclera. Mucosal membrane moist. Poor dentition. Lungs: clear to auscultation with normal rate and effort Cardio: regular rate and rhythm without murmur, gallop, or rub Abdomen: soft, nondistended, nontender, normoactive bowel sound. Extremities: free of edema, cyanosis, or clubbing. Mild tenderness to palpation in the DIP and PIP joints of bilateral hands. Skin: numerous track hart on the legs and arms. Diffuse excoriations that patient attributes to skin picking. Neuro: CN II-XII intact, sensation grossly intact, moving all extremities. Psych: normal mood and affect. Poor judgement and insight. IVs and Medications Medications Reviewed: Medications were reviewed in detail Lab and Diagnostics Result Diagram: 10/05/16 0600 10/05/16 06 Cardiac Echo Impressions Interpretation Summary The study quality was technically excellent. The left ventricle is normal in size. Left ventricular systolic function is normal without focal wall motion abnormalities. Left ventricular ejection fraction is estimated to be 55%. The right ventricle is normal in size, thickness and function. The right ventricular systolic pressure is estimated at 25 mmHg assuming a right atrial pressure of 3 mm Hg. Both atria are normal in size. There is no vegetation seen on the mitral valve, aortic valve, or pulmonic valve. There is a moderate size vegetation or mass on the tricuspid valve. The mass is located on the posterior tricuspid leaflet. There is mild tricuspid regurgitation. The aortic root is normal size. Assessment & Plan 31-year-old male with a 15 year history of IV drug use, primarily heroin, presenting to the hospital for a week of intermittent fevers myalgias and severe malaise. The patient had noted that his girlfriend, who is in rehabilitation currently, was recently diagnosed as being Hep C positive. (Not HIV.) Acute endocarditis, staph aureus. Present on admission, Active. - Blood culture positive for staph aureus, methicillin sensitive. - Echo shows vegetations on the tricuspid valve as above. - Nafcillin IV Q4H. Hepatitis C, Present on admission, Active. - HCV genotype and Quantitative pending. - Defer to outpatient follow up with GI. - HIV pending. Volume depletion, Present on admission. Resolved. - Improving continue Resuscitation. Hypovolemic hyponatremia, Present on admission.Resolved. - Improving, continue Fluid resuscitation with saline as outlined above Lactic acidosis, Present on admission. Resolved. Continuous opiate dependence, heroin addiction. Present on admission. Active. Last used 2 weeks ago, low risk for withdrawal syndrome. Methamphetamine abuse syndrome, Present on admission. Active.. - Last use 2 weeks ago. - Follow clinically. Patient is full resuscitation. Patient is admitted inpatient status within estimated length of stay of over 2 nights. Pain Evaluation: Adequate Pain Control Resuscitation Status: CPR: Attempt Resuscitation Attending Statement The patient was seen and examined together with Dr. Carrera on 10/05/2016 and I agree with the history, exam findings, and plan as outlined in the note above. I did participate in all aspects of the services provided today, including documentation and the plan of care. 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 Anticipate a total course of 6 weeks. We will repeat cultures in the next 24 hours to prove sterilization of blood. LEDY CARRERA DO Oct 05, 2016 19:17 Scotty Spain MD Oct 06, 2016 09:05
[2016-10-06] VITALS (7 sets, daily range): BP systolic 110–121; BP diastolic 66–78; PULSE 57–71; RESP 18–24; O2SAT 97–98
[2016-10-06] MEDS: Amiodarone 360 mg/200 mL D5W IV SCH ×2 (02:28→11:32)
--- NOTE | 2016-10-06 03:32 | NUR ---
Hygiene/Pain Pt refuses assistance with hygienic care. Disheveled appearance. Pt asked several times if the bed linens and gown can be changed and he refused. Pt grimaces and hides from the light. Denies pain and refuses any ordered medications.
[2016-10-06] MEDS: Nafcillin Inj 2,000 MG in Dextrose 5% Minibag Plus 100 ML IV SCH ×2 (03:48→08:41)
[2016-10-06] MEDS: Heparin 5,000 Unit/mL Inj SUBQ SCH ×2 (08:42→17:33)
[2016-10-06 09:38] LABS: Mean Corpuscular Volume 80.2 fL (81-100)
[2016-10-06 09:39] LABS: BASOPHILS % (AUTO) 0.3 % (0-3); EOSINOPHILS % (AUTO) 0.3 % (0-5); MONOCYTES % (AUTO) 6.3 % (4-12); Mean Corpuscular Hemoglobin 27.1 pg (27.0-35.0); NEUTROPHILS % (AUTO) 79.2 % (40-74); Platelet Count 276 bil/L (150-400)
--- NOTE | 2016-10-06 13:57 | NUR ---
Social Work Note: Substance Use Assessment Current Circumstances: Per MD order, SW met with pt at bedside to discuss substance use hx and offer resources. Oleksandr Ayers is a 31 year old male admitted on 10/01/2016 for sepsis and fever of unknown origin. Per MD, pt was diagnosed with Endocarditis and requires 6 weeks of IV abx. Hx of substance use: Pt states he has been using substances for most of his adult life. Pt preference if for heroin and also uses meth. Pt typically uses $100 worth of heroin daily and "as much meth as I want, the person I used to live with gave me all my meth." Hx of tx programs/detox: Pt states he was in a [facility] inpt tx program in [place] when he was 26 years old. Pt states he was there for two and a half years. Pt states they had a inpt component and also a sober living component. Hx of w/d symptoms: Pt reports experiencing the sweats and flu like symptoms when he goes too long with using. 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 Pt states after he left there, he relapsed. Patients perception of the consequences of use: Pt does not appear to have good insight into his struggle with substance use. Pt does not seem to consider the influence his substance use has on his health or the connection his heroin use to his endocarditis. Suicide Risk: Pt denies any suicidal ideation or hx of thoughts of harming himself or others. Motivation for tx: Pt declined any resources at this time. Pt declined to speak with the CDP. Pt states if he changes his mind, he will inform SW as he will be he for 6 weeks. Discharge Plan: Anticipated discharge home with friend when medically ready. Pt declined any resources at this time. Pt declined any needs. SW to continue to follow if any needs arise. RAZ Garcia
[2016-10-06] MEDS: INFUSION IV SCH ×3 (14:19)
[2016-10-06] MEDS: NAFCILLIN IV SCH ×3 (14:19)
--- NOTE | 2016-10-06 15:20 | NUR ---
Tele/Visitors Pt has remained SR 70-80's. No reports of chest pain/discomfort. Pt AOX3. PO Amiodarone provided as scheduled/ordered. Confirmed with pt that visitors should not and will not be tolerated to bring drugs in. Pt understood. Girlfriend came to visit today. Pt cooperative with care. Double lumen PICC to right arm. ABX infusing. Care ongoing.
--- NOTE | 2016-10-06 17:44 | PCM.PNMED ---
Subjective Date of Service Oct 06, 2016 Subjective Overnight events: NONE. Today, patient reports feeling much better today than the day before. He headache, dizziness, sore throat, cough, chest pain, shortness of breath, abdominal pain, nausea, vomiting, constipation, and diarrhea. He reports withdrawing several days before admission and does not feel that he will withdraw here at [facility]. Exam Vital Signs Vital Sign - Last Date Time Temp Pulse Resp B/P Pulse Ox O2 Delivery O2 Flow Rate FiO2 10/06/16 06:00 57 10/06/16 04:13 37.3 18 112/69 97 Room Air Intake and Output 10/05/16 10/05/16 10/06/16 Cumulative From/Thru 15:00 23:00 07:00 10/01/16 12:57 - 10/06/16 04:13 Intake Total 1969 ml 400 ml 43629 ml Output Total 875 ml 1600 ml 6427 ml Balance 1094 ml -1200 ml 40179 ml Intake Oral 1270 ml 400 ml 7228 ml IV Total 699 ml 9853 ml Output Urine Total 525 ml 1975 ml Stool Total 350 ml 1850 ml Urine/Stool Mix 1600 ml 2202 ml Emesis 400 ml # Voids 11 # Bowel Movements 4 Exam General: Alert and oriented x3, no distress. Fluent speech. Appropriately interactive. HEENT: NCAT, Anicteric sclera. Mucosal membrane moist. Poor dentition. Lungs: clear to auscultation with normal rate and effort Cardio: regular rate and rhythm without murmur, gallop, or rub Abdomen: soft, nondistended, nontender, normoactive bowel sound. Extremities: free of edema, cyanosis, or clubbing. Mild tenderness to palpation in the DIP and PIP joints of bilateral hands. Skin: numerous track hart on the legs and arms. Diffuse excoriations that patient attributes to skin picking. Neuro: CN II-XII intact, sensation grossly intact, moving all extremities. Psych: normal mood and affect. Poor judgement and insight. IVs and Medications Medications Reviewed: Medications were reviewed in detail Lab and Diagnostics Result Diagram: 10/05/16 0610/05/16 06 Cardiac Echo Impressions Echo Interpretation Summary The study quality was technically excellent. The left ventricle is normal in size. Left ventricular systolic function is normal without focal wall motion abnormalities. Left ventricular ejection fraction is estimated to be 55%. The right ventricle is normal in size, thickness and function. The right ventricular systolic pressure is estimated at 25 mmHg assuming a right atrial pressure of 3 mm Hg. Both atria are normal in size. There is no vegetation seen on the mitral valve, aortic valve, or pulmonic valve. There is a moderate size vegetation or mass on the tricuspid valve. The mass is located on the posterior tricuspid leaflet. There is mild tricuspid regurgitation. The aortic root is normal size. Assessment & Plan 31-year-old male with a 15 year history of IV drug use, primarily heroin, presenting to the hospital for a week of intermittent fevers myalgias and severe malaise. The patient had noted that his girlfriend, who is in rehabilitation currently, was recently diagnosed as being Hep C positive. (Not HIV.) Acute endocarditis, staph aureus. Present on admission, Active. - Blood culture positive for staph aureus, methicillin sensitive. - Echo shows vegetations on the tricuspid valve as above. - Initially placed on Vancomycin 10/01/16. Started Nafcillin 10/04 after sensitivities resulted. - Nafcillin IV Q4H. Will continue and await recs from ID. - Brief run of VTach 10/05/16, cardiology called and placed on Amiodarone 400 BID PO. - Repeat Blood cx till negative. Hepatitis C, Present on admission, Active. - HCV genotype pending and Quantitative [id number], Hep C abd >11.0. - Defer to outpatient follow up with GI. - HIV negative. Continuous opiate dependence, heroin addiction. Present on admission. Active. Last used 2 weeks ago, low risk for withdrawal syndrome. Methamphetamine abuse syndrome, Present on admission. Active.. - Last use 2 weeks ago. - Follow clinically. Acetaminophen for mild pain when necessary. Bowel regimen Senna and MiraLAX scheduled and PRN. Zofran when necessary for nausea and vomiting. SubQ heparin held for now. SCDs in place. High-risk medications: NONE. Social: Patient is a high risk individual for loss to follow up and concerns that he may not complete treatment if discharged. Patient is full resuscitation. Disposition. Patient is admitted inpatient status within estimated length of stay of over 2 nights. Pain Evaluation: Adequate Pain Control Resuscitation Status: CPR: Attempt Resuscitation Attending Statement I interviewed and examined the patient on rounds today. No signs of withdrawal. I agree with the assessment and plan as stated above. LEDY RODAS DO Oct 06, 2016 06:14 Jerome Moya MD Oct 08, 2016 07:09
[2016-10-06] MEDS: HYDROcodone-APAP 5-325 mg Tablet PO PRN (20:55)
[2016-10-07] VITALS (9 sets, daily range): BP systolic 101–112; BP diastolic 55–66; PULSE 64–73; RESP 20; O2SAT 96–99
[2016-10-07] MEDS: Heparin 5,000 Unit/mL Inj SUBQ SCH ×3 (01:09→15:49)
--- NOTE | 2016-10-07 07:10 | NUR ---
Admit to [facility] / NOC Arrived to floor via w/c, dx: endocarditis. Will be receiving IV abx for 6 weeks per report. RUE 2lumen picc infusing Nafcillin at 47cc/hour. hx of polysubstance abuse. tele SR 63, no ectopy. Tolerating p.o. amiodorone. General diet, fluids available at bedside. PRN norco given at HS for generalized pain. Slept well thru the NOC, no c/o. CTM for changes.
[2016-10-07] MEDS: NAFCILLIN IV SCH ×3 (15:43)
[2016-10-07] MEDS: INFUSION IV SCH ×3 (15:43)
--- NOTE | 2016-10-07 18:28 | NUR ---
Blood Culture: Notified by Flory in lab of blood culture positive cocci staph 03/17 bottles. notified. Continuous IV antibiotic infusing.
--- NOTE | 2016-10-07 23:03 | PCM.PNMED ---
Subjective Date of Service Oct 07, 2016 Subjective The patient is feeling a little bit better. He has no new complaints. He has no current fever, chills or diaphoresis. Exam Vital Signs Vital Sign - Last Date Time Temp Pulse Resp B/P Pulse Ox O2 Delivery O2 Flow Rate FiO2 10/07/16 22:33 72 10/07/16 20:53 36.9 20 101/55 97 Room Air Intake and Output 10/06/16 10/06/16 10/07/16 Cumulative From/Thru 15:00 23:00 07:00 10/01/16 12:57 - 10/07/16 05:37 Intake Total 2638 ml 438 ml 52799 ml Output Total 350 ml 6777 ml Balance 2638 ml 88 ml 77021 ml Intake Oral 1860 ml 160 ml 9248 ml IV Total 778 ml 278 ml 14353 ml Output Urine Total 350 ml 2325 ml Stool Total 1850 ml Urine/Stool Mix 2202 ml Emesis 400 ml # Voids 3 14 # Bowel Movements 4 Exam General: The patient is in no distress lying supine in bed. HEENT: Head is atraumatic and normocephalic. Eyes: Pupils are equally round and reactive to light and accommodation. Extraocular muscles are intact. Sclera are white, anicteric. Subconjunctival mucosa is pink. Ears and nose are unremarkable. Oropharynx: There is no mucosal lesions, there is no thrush, there is no pharyngitis. Neck: Is supple, there are no nodes, or masses or tenderness. Chest: Is clear to auscultation and percussion. There are no rales, rhonchi, wheezes or rubs. Heart: Rate, rhythm is regular. There is a grade 2/6 systolic ejection murmur heard best left sternal border. There is no rub or gallop. Abdomen: Good bowel sounds are present. Abdomen is soft, nontender, no organomegaly or masses were appreciated. Extremities: Are symmetrical and well perfused. There is no edema, there is no cellulitis, no rash. Neurologic: There are no focal neurological deficits. Cranial nerves II through XII are intact. There are no sensory or motor deficits. Psychiatric: Patients mood is calm and he shows no sign of agitation. Genital: Deferred Rectal: Deferred Lab and Diagnostics Result Diagram: 10/06/1645 10/06/16644 Microbiology Name: ORLIN BLACKMON Age/Sex: 31/M Attend Dr: Jerome Moya MD Acct: [id number] Unit: [id number] Status: ADM IN Location: [facility] 2026-03 Re10/01/16 Disch: Specimen: [id number] Collected: 10/03/16 Status: COMP Req#: [id number] Received: 10/03/16 Source: BLOOD Sp Desc : AA Raul Dr: Sri Rivero DO Ordered: BC Comments: Collected by Nurse/Unit? Y/N N Procedure Result Verified Site Microbiology MISSY CULTURE BLOOD Final 10/06/16-700 Organism 1 STAPHYLOCOCCUS AUREUS GRAM STAIN RESULT GRAM POSITIVE COCCI ?STAPH BC BOTTLE Isolated from Single Aerobic Bottle Drawn DATE CALLED: 10/04/16 TIME CALLED: 336 CALLED BY: CARA FLOOR/DOCTOR: ISRAEL LARIOS READ BACK YES TYPE OF DRAW PERIPHERAL DRAW TIME OF POSITIVITY 0320 GRAM STAIN RESULT GRAM POSITIVE COCCI ?STAPH BC BOTTLE2 Isolated from Anaerobic Bottle of Set Drawn DATE CALLED: 10/04/16 TIME CALLED: 337 CALLED BY: CARA FLOOR/DOCTOR: ISRAEL LARIOS READ BACK YES TYPE OF DRAW PERIPHERAL DRAW TIME OF POSITIVITY 0320 Oxacillin Susceptible Penicillin Resistant Staph spp. are Susceptible to Penicillin stable penicillins, Blactam/Blactamase inhibitor combinations, antistaphyloccal cephems, and carbapenems. ISOLATED FROM TWO OF THREE BOTTLES COLLECTED 10/03 1. STAPHYLOCOCCUS AUREUS M.I.C Interp --------- ------ * CEFAZOLIN S * CLINDAMYCIN <=0.25 S * ERYTHROMYCIN 0.5 S * LINEZOLID 2 S * MOXIFLOXACIN <=0.25 S CONTINUED ON NEXT PAGE RUN DATE: 10/06/16 [facility] LIVE PAGE 2 RUN TIME: 700 Specimen Inquiry PHYSICIAN Patient: EVYCampbellORLIN [id number] (Continued) Specimen: [id number] Collected: 10/03/16-944 Received: 10/03/16-1015 (Continued) Procedure Result Verified Site MISSY CULTURE BLOOD Final (continued) 10/06/16-700 1. STAPHYLOCOCCUS AUREUS (continued) Uli Interp --------- ------ * OXACILLIN MISSY 0.5 S * RIFAMPIN <=0.5 S * TETRACYCLINE <=1 S * TRIMETHOPRIM/SULFAMETHOXAZOLE <=10 S * VANCOMYCIN 1 S Name: ORLIN BLACKMON Age/Sex: 31/M Attend Dr: Liang Barr Acct: [id number] Unit: [id number] Status: ADM IN Location: [facility] [place] 3022-1 Re10/01/16 Disch: Specimen: [id number] Collected: 10/06/16 Status: RES Rocco#: [id number] Received: 10/06/16 Source: BLOOD Sp Desc : AER Subm Dr: LEDY RODAS DO Ordered: BC Comments: Collected by Nurse/Unit? Y/N N Procedure Result Verified Site Microbiology MISSY CULTURE BLOOD Preliminary 10/07/16-1705 Organism 1 POSITIVE BLOOD CULTURE GRAM STAIN RESULT GRAM POSITIVE COCCI ?STAPSherwin BC BOTTLE Isolated from Aerobic Bottle of Set Drawn DATE CALLED: 10/07/16 TIME CALLED: 1600 CALLED BY: TORI FLOOR/DOCTOR: ASH/MARINO LARIOS READ BACK YES TYPE OF DRAW PERIPHERAL DRAW TIME OF POSITIVITY 1515 X-Rays, CTs and MRIs PROCEDURE: X-RAY CHEST ONE VIEW, PORTABLE ([id number]) INDICATIONS: fever, unknown source TECHNIQUE: One view of the chest was acquired. COMPARISON: None. FINDINGS: Surgical changes and devices: None. Lungs and pleura: No pleural effusions or pneumothorax. Lungs are clear. A nodular density in the right mid lung zone is probably caused by the nipple shadow. Mediastinum: Mediastinal contours appear normal. Heart size is normal. Bones and chest wall: No suspicious bony lesions. Overlying soft tissues appear unremarkable. IMPRESSION: No acute cardiopulmonary disease. Dictated by: Kenya Bush M.D. on 10/01/2016 at 15:10 Approved by: Kenya Bush M.D. on 10/01/2016 at 15:11 Cardiac Echo Impressions Echo Interpretation Summary The study quality was technically excellent. The left ventricle is normal in size. Left ventricular systolic function is normal without focal wall motion abnormalities. Left ventricular ejection fraction is estimated to be 55%. The right ventricle is normal in size, thickness and function. The right ventricular systolic pressure is estimated at 25 mmHg assuming a right atrial pressure of 3 mm Hg. Both atria are normal in size. There is no vegetation seen on the mitral valve, aortic valve, or pulmonic valve. There is a moderate size vegetation or mass on the tricuspid valve. The mass is located on the posterior tricuspid leaflet. There is mild tricuspid regurgitation. The aortic root is normal size. Assessment & Plan The patient is a 31-year-old white male with a 15 year history of IV drug use, primarily heroin, presenting to the hospital for a week of intermittent fevers, myalgias and severe malaise. The patient had noted that his girlfriend, who is in rehabilitation currently, was recently diagnosed as being Hep C positive. ( Not HIV.) The patient was admitted to the hospitalist service for further evaluation and treatment. Acute endocarditis, staph aureus. Present on admission, Active. - Blood culture positive for staph aureus, methicillin sensitive. Repeat blood cultures on 10/06/2016 are positive. Check ID and susceptibility. - Echo shows vegetations on the tricuspid valve as above. - Initially placed on Vancomycin 10/01/16. Started Nafcillin 10/04 after sensitivities resulted. Check ID of recent positive blood culture and susceptibilities. - Nafcillin IV Q4H. Will continue and await recs from ID. - Brief run of VTach 10/05/16, cardiology called and patient was placed on Amiodarone 400 BID PO. - Repeat Blood cultures on 10/06/2016 are positive. ID and susceptibility.. Hepatitis C, Present on admission, Active. - HCV genotype pending and Quantitative 2,450,000, Hep C abd >11.0. - Defer to outpatient follow up with GI. - HIV negative. Continuous opiate dependence, heroin addiction. Present on admission. Active. Last used 2 weeks ago, low risk for withdrawal syndrome. Methamphetamine abuse syndrome, Present on admission. Active.. - Last use 2 weeks ago. - Follow clinically. Acetaminophen for mild pain when necessary. Bowel regimen Senna and MiraLAX scheduled and PRN. Zofran when necessary for nausea and vomiting. SubQ heparin held for now. SCDs in place. High-risk medications: NONE. Social: Patient is a high risk individual for loss to follow up and concerns that he may not complete treatment if discharged. Patient is full resuscitation. Disposition. Patient will be here until blood cultures are negative. Then possible arrangements for transfer to a swing bed might be feasible. Pain Evaluation: Adequate Pain Control VTE Mechanical Devices: Venous Foot Pump Resuscitation Status: CPR: Attempt Resuscitation Liang Barr MD Oct 07, 2016 23:03
[2016-10-08] VITALS (7 sets, daily range): BP systolic 102–118; BP diastolic 61–70; PULSE 62–77; RESP 16–20; O2SAT 97–99
[2016-10-08] MEDS: Heparin 5,000 Unit/mL Inj SUBQ SCH ×3 (00:26→16:59)
[2016-10-08 05:52] LABS: BASOPHILS % (AUTO) 0.3 % (0-3); EOSINOPHILS % (AUTO) 0 % (0-5); MONOCYTES % (AUTO) 5.8 % (4-12); Mean Corpuscular Hemoglobin 27.5 pg (27.0-35.0); Mean Corpuscular Volume 82.1 fL (81-100); NEUTROPHILS % (AUTO) 78.1 % (40-74); Platelet Count 357 bil/L (150-400)
--- NOTE | 2016-10-08 06:18 | NUR ---
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 Monitor check called RN again shortly after saying pt is having a lot of PVC's. Am labs already drawn and pending for K and Mag; alerted. Pt remains asymptomatic, resting in bed. Pt denied pain, chest pain and SOB, slept most of the night, pleasant and cooperative with care.
[2016-10-08] MEDS ORDERED: CeFAZolin 2 Gm/50 mL D5W Duplex Bag IV SCH (09:05)
[2016-10-08] MEDS: CeFAZolin 2 Gm/50 mL D5W IV Premix IV SCH ×2 (11:32→17:00)
[2016-10-08] MEDS ORDERED: 0.9% Sodium Chloride 250 ML ONE (11:34)
--- NOTE | 2016-10-08 15:17 | NUR ---
Social Work: Continued d/c planning Data: Pt is on day 7 of hospitalization. EMR reviewed. Pt discussed in multidisciplinary rounds. MD ordered swing bed referral. [employer] notified UR specialist, referral to be made. [employer] met with pt at bedside and explained [facility] swing bed. Pt agreeable to this. [employer] will continue to follow. Assessment: Pt who is independent at baseline, IV drug use, currently capable of self care at this time. Plan: Referrals to be sent to [facility] for possible senior living IVABX. [employer] will continue to follow. RAZ Major
--- NOTE | 2016-10-08 15:52 | NUR ---
Swing Bed Unit Referral : Faxed referral to Adeola Randle at [facility] Swing Bed Unit [phone]
--- NOTE | 2016-10-08 17:34 | NUR ---
Activity/Nicotine: Encouraged patient to be OOB and ambulating in hallways. Patient states that he would be tempted to leave floor if he walked by the exit doors as he would like to go out and smoke. Explained that he does need to stay on unit, however we could get a nicotine patch order if he has the urge to smoke. Patient stated that he does not like nicotine patches and declined offer.
--- NOTE | 2016-10-08 23:39 | PCM.PNMED ---
Subjective Date of Service Oct 08, 2016 Subjective The patient has no new complaints today. He has no fever, no chills and no diaphoresis. Exam Vital Signs Vital Sign - Last Date Time Temp Pulse Resp B/P Pulse Ox O2 Delivery O2 Flow Rate FiO2 10/08/16 20:48 36.7 67 18 118/66 98 Room Air Intake and Output 10/07/16 10/07/16 10/08/16 Cumulative From/Thru 15:00 23:00 07:00 10/01/16 12:57 - 10/08/16 06:22 Intake Total 279 ml 2255 ml 1708 ml 88681 ml Output Total 1025 ml 0 ml 7802 ml Balance 279 ml 1230 ml 1708 ml 74854 ml Intake Oral 1722 ml 1100 ml 23444 ml IV Total 279 ml 533 ml 608 ml 04389 ml Output Urine Total 1025 ml 0 ml 3350 ml Stool Total 1850 ml Urine/Stool Mix 2202 ml Emesis 400 ml # Voids 14 # Bowel Movements 0 4 Exam General: The patient is in no distress lying supine in bed. HEENT: Head is atraumatic and normocephalic. Eyes: Pupils are equally round and reactive to light and accommodation. Extraocular muscles are intact. Sclera are white, anicteric. Subconjunctival mucosa is pink. Ears and nose are unremarkable. Oropharynx: There is no mucosal lesions, there is no thrush, there is no pharyngitis. Neck: Is supple, there are no nodes, or masses or tenderness. Chest: Is clear to auscultation and percussion. There are no rales, rhonchi, wheezes or rubs. Heart: Rate, rhythm is regular. There is a grade 2/6 systolic ejection murmur heard best left sternal border. There is no rub or gallop. Abdomen: Good bowel sounds are present. Abdomen is soft, nontender, no organomegaly or masses were appreciated. Extremities: Are symmetrical and well perfused. There is no edema, there is no cellulitis, no rash. Neurologic: There are no focal neurological deficits. Cranial nerves II through XII are intact. There are no sensory or motor deficits. Psychiatric: Patients mood is calm and he shows no sign of agitation. Genital: Deferred Rectal: Deferred Lab and Diagnostics Result Diagram: 10/08/16 0535 10/08/16 0535 Microbiology Name: ORLIN BLACKMON Age/Sex: 31/M Attend Dr: Jerome Moya MD Acct: [id number] Unit: [id number] Status: ADM IN Location: [facility] 2026-03 Re10/01/16 Disch: Specimen: [id number] Collected: 10/03/16 Status: HSANNAN Valiente#: [id number] Received: 10/03/16 Source: BLOOD Sp Desc : AA Raul Dr: Sri Rivero DO Ordered: BC Comments: Collected by Nurse/Unit? Y/N N Procedure Result Verified Site Microbiology MISSY CULTURE BLOOD Final 10/06/16-700 Organism 1 STAPHYLOCOCCUS AUREUS GRAM STAIN RESULT GRAM POSITIVE COCCI ?STAPH BC BOTTLE Isolated from Single Aerobic Bottle Drawn DATE CALLED: 10/04/16 TIME CALLED: 336 CALLED BY: CARA FLOOR/DOCTOR: ISRAEL LARIOS READ BACK YES TYPE OF DRAW PERIPHERAL DRAW TIME OF POSITIVITY 0320 GRAM STAIN RESULT GRAM POSITIVE COCCI ?STAPH BC BOTTLE2 Isolated from Anaerobic Bottle of Set Drawn DATE CALLED: 10/04/16 TIME CALLED: 337 CALLED BY: CARA FLOOR/DOCTOR: ISRAEL LARIOS READ BACK YES TYPE OF DRAW PERIPHERAL DRAW TIME OF POSITIVITY 0320 Oxacillin Susceptible Penicillin Resistant Staph spp. are Susceptible to Penicillin stable penicillins, Blactam/Blactamase inhibitor combinations, antistaphyloccal cephems, and carbapenems. ISOLATED FROM TWO OF THREE BOTTLES COLLECTED 10/03 1. STAPHYLOCOCCUS AUREUS M.I.C Interp --------- ------ * CEFAZOLIN S * CLINDAMYCIN <=0.25 S * ERYTHROMYCIN 0.5 S * LINEZOLID 2 S * MOXIFLOXACIN <=0.25 S CONTINUED ON NEXT PAGE RUN DATE: 10/06/16 [facility] LIVE PAGE 2 RUN TIME: 700 Specimen Inquiry PHYSICIAN Patient: EVYCampbellORLIN [id number] (Continued) Specimen: [id number] Collected: 10/03/16-944 Received: 10/03/16-1015 (Continued) Procedure Result Verified Site MISSY CULTURE BLOOD Final (continued) 10/06/16-700 1. STAPHYLOCOCCUS AUREUS (continued) Uli Interp --------- ------ * OXACILLIN MISSY 0.5 S * RIFAMPIN <=0.5 S * TETRACYCLINE <=1 S * TRIMETHOPRIM/SULFAMETHOXAZOLE <=10 S * VANCOMYCIN 1 S Name: ORLIN BLACKMON Age/Sex: 31/M Attend Dr: Liang Barr Acct: [id number] Unit: [id number] Status: ADM IN Location: [facility] [place] 3022-1 Re10/01/16 Disch: Specimen: [id number] Collected: 10/06/16 Status: RES Rocco#: [id number] Received: 10/06/16 Source: BLOOD Sp Desc : AER Raul Dr: LEDY RODAS DO Ordered: Comments: Collected by Nurse/Unit? Y/N N Procedure Result Verified Site Microbiology MISSY CULTURE BLOOD Preliminary 10/07/16-1705 Organism 1 POSITIVE BLOOD CULTURE GRAM STAIN RESULT GRAM POSITIVE COCCI ?TERI BC BOTTLE Isolated from Aerobic Bottle of Set Drawn DATE CALLED: 10/07/16 TIME CALLED: 1600 CALLED BY: TORI FLOOR/DOCTOR: ASH/MARINO LARIOS READ BACK YES TYPE OF DRAW PERIPHERAL DRAW TIME OF POSITIVITY 1515 X-Rays, CTs and MRIs PROCEDURE: X-RAY CHEST ONE VIEW, PORTABLE ([id number]) INDICATIONS: fever, unknown source TECHNIQUE: One view of the chest was acquired. COMPARISON: None. FINDINGS: Surgical changes and devices: None. Lungs and pleura: No pleural effusions or pneumothorax. Lungs are clear. A nodular density in the right mid lung zone is probably caused by the nipple shadow. Mediastinum: Mediastinal contours appear normal. Heart size is normal. Bones and chest wall: No suspicious bony lesions. Overlying soft tissues appear unremarkable. IMPRESSION: No acute cardiopulmonary disease. Dictated by: Kenya Bush M.D. on 10/01/2016 at 15:10 Approved by: Kenya Bush M.D. on 10/01/2016 at 15:11 Cardiac Echo Impressions Echo Interpretation Summary The study quality was technically excellent. The left ventricle is normal in size. Left ventricular systolic function is normal without focal wall motion abnormalities. Left ventricular ejection fraction is estimated to be 55%. The right ventricle is normal in size, thickness and function. The right ventricular systolic pressure is estimated at 25 mmHg assuming a right atrial pressure of 3 mm Hg. Both atria are normal in size. There is no vegetation seen on the mitral valve, aortic valve, or pulmonic valve. There is a moderate size vegetation or mass on the tricuspid valve. The mass is located on the posterior tricuspid leaflet. There is mild tricuspid regurgitation. The aortic root is normal size. Assessment & Plan The patient is a 31-year-old white male with a 15 year history of IV drug use, primarily heroin, presenting to the hospital for a week of intermittent fevers, myalgias and severe malaise. The patient had noted that his girlfriend, who is in rehabilitation currently, was recently diagnosed as being Hep C positive. ( Not HIV.) The patient was admitted to the hospitalist service for further evaluation and treatment. Acute endocarditis, staph aureus. Present on admission, Active. - Blood culture positive for staph aureus, methicillin sensitive. Repeat blood cultures on 10/06/2016 are positive. Check ID and susceptibility. - Echo shows vegetations on the tricuspid valve as above. - Initially placed on Vancomycin 10/01/16. Started Nafcillin 10/04 after sensitivities resulted. However due to increasing creatinine and concern for possible interstitial nephritis nafcillin was discontinued and Ancef was started. Check ID of recent positive blood culture and susceptibilities. - We will discontinue Nafcillin IV due to increasing creatinine and concern for possible interstitial nephritis. We will replace with Ancef 2 g iv every 8 hours. - Brief run of VTa 10/05/16, cardiology called and patient was placed on Amiodarone 400 BID PO. We will continue for now. - Repeat Blood cultures on 10/06/2016 are positive. ID and susceptibility.. We will also check repeat blood cultures today on 10/08/2016. Hepatitis C, Present on admission, Active. - HCV genotype pending and Quantitative 2,450,000, Hep C abd >11.0. - Defer to outpatient follow up with GI. - HIV negative. Continuous opiate dependence, heroin addiction. Present on admission. Active. Last used 2 weeks ago, low risk for withdrawal syndrome. Methamphetamine abuse syndrome, Present on admission. Active.. - Last use 2 weeks ago. - Follow clinically. Acetaminophen for mild pain when necessary. Bowel regimen Senna and MiraLAX scheduled and PRN. Zofran when necessary for nausea and vomiting. SubQ heparin held for now. SCDs in place. High-risk medications: NONE. Social: Patient is a high risk individual for loss to follow up and concerns that he may not complete treatment if discharged. Patient is full resuscitation. Disposition. Patient will be here until blood cultures are negative. Then possible arrangements for transfer to a swing bed might be feasible for continued IV antibiotics. Pain Evaluation: Adequate Pain Control VTE Mechanical Devices: Venous Foot Pump Resuscitation Status: CPR: Attempt Resuscitation Liang Barr MD Oct 08, 2016 23:39
[2016-10-09] VITALS (9 sets, daily range): BP systolic 105–125; BP diastolic 64–74; PULSE 60–71; RESP 18–20; O2SAT 94–99
[2016-10-09] MEDS: Heparin 5,000 Unit/mL Inj SUBQ SCH ×4 (00:53→23:43)
[2016-10-09] MEDS: CeFAZolin 2 Gm/50 mL D5W IV Premix IV SCH ×4 (00:53→23:44)
--- NOTE | 2016-10-09 04:33 | NUR ---
Uneventful Night: Pt had an uneventful night, no c/o pain, chest pain or SOB. Pt slept most of the night, pleasant and cooperative with care.
[2016-10-09 06:01] LABS: BASOPHILS % (AUTO) 0.2 % (0-3); EOSINOPHILS % (AUTO) 0.4 % (0-5); Mean Corpuscular Hemoglobin 26.9 pg (27.0-35.0); Mean Corpuscular Volume 83.2 fL (81-100); NEUTROPHILS % (AUTO) 77.2 % (40-74); Platelet Count 357 bil/L (150-400)
[2016-10-09 06:26] LABS: Magnesium 1.9 mg/dL (1.6-2.6)
[2016-10-09 07:43] LABS: ERYTHROCYTE SEDIMENTATION RATE 76 mm/hr (0-15)
--- NOTE | 2016-10-09 09:26 | PCM.CONPHA ---
Subjective Fevers and myalgias. Objective Vital Signs Date Time Temp Pulse Resp B/P Pulse Ox O2 Delivery O2 Flow Rate FiO2 10/09/16 09:06 60 10/09/16 08:59 36.6 71 20 115/65 94 Room Air 10/09/16 05:31 65 10/09/16 05:29 36.7 63 18 121/69 98 Room Air 10/09/16 00:51 36.8 67 18 113/64 99 Room Air 10/08/16 20:48 36.7 67 18 118/66 98 Room Air 10/08/16 17:15 37.0 72 20 108/64 99 Room Air 10/08/16 12:59 36.8 65 18 117/70 98 Room Air Intake and Output 10/07/16 10/08/16 10/09/16 00:00 00:00 00:00 Intake Total 3038 ml 2972 ml 3456 ml Output Total 1600 ml 1375 ml 1175 ml Balance 1438 ml 1597 ml 2281 ml Weight (Kilograms): 71.500 Height (Feet): 5 Height (Inches): 9.00 Test 10/01/16 15:10 10/01/16 15:32 10/01/16 15:42 10/01/16 19:00 Troponin T < 0.010ug/L (0.0-0.011) Hold Blue Top Tube Received (Received) Hold [place] Top Tube Received (Received) Cryptococcus Antibody Negative (Neg:<1:2) HIV (1&2) Ag and Ab, 4th Generation Non reactive (Non Reactive) Urine Opiates Screen Positive Urine Methadone Screen Negative Urine Barbiturates Screen Negative Urine Amphetamines Screen Negative Urine Benzodiazepines Screen Negative Urine Cocaine Metabolite Screen Negative Urine Cannabinoids Screen Negative Hepatitis A IgM Antibody Negative (Negative) Hepatitis B Surface Antigen Negative (Negative) Hepatitis B Core IgM Antibody Negative (Negative) Hepatitis C Antibody >11.0s/co ratio Hepatitis C Antibody Comment Comment (.) Test 10/01/16 19:02 10/01/16 20:52 10/03/16 14:10 10/04/16 09:10 Urine Color Dark yellow (YELLOW) Urine Appearance Hazy (CLEAR,HAZY) Urine pH 5.0 (5.0-8.0) Urine Specific [place] 1.010 (1.003-1.035) Urine Protein 30mg/dL (NEG,TRACE) Urine Glucose (UA) Negativemg/dL (NEGATIVE) Urine Ketones Negativemg/dL (NEGATIVE) Urine Occult Blood Small (NEGATIVE) Urine Nitrite Negative (NEGATIVE) Urine Bilirubin Negative (NEGATIVE) Urine Urobilinogen Normalmg/dL (NORMAL) Urine Leukocyte Esterase Negative (NEGATIVE) Urine RBC 0-2/hpf (0-2) Urine WBC 0-5/hpf (0-5) Urine Epithelial Cells Occasional/hpf (NONE-MOD) Urine Crystals Amorphous urates (NONE Urine Bacteria Few/hpf (NONE-FEW) Urine Hyaline Casts None/lpf (NONE) Urine Granular Casts None seen (NONE SEEN) Urine Waxy Casts None seen (NONE SEEN) Urine Red Blood Cell Casts None seen (NONE SEEN) Urine White Blood Cell Casts None seen (NONE SEEN) Urine Mucus None seen (None Seen) Urine Trichomonas None seen (NONE SEEN) Urine Yeast None (NONE SEEN) Urinalysis Comment None Urine Culture Reflexed Not indicated Lactic Acid Level 2.0mmol/L (0.4-2.0) Hepatitis C Virus Quantitation [id number] (.) Hepatitis C RNA (PCR) log10 6.389 (.) Hepatitis C Genotype 1a (.) Hepatitis C Genotype Comment Comment (.) Hepatitis C Comment Comment (.) Vancomycin Level Trough 16.0mcg/mL Test 10/06/16 06:45 10/08/16 17:00 10/09/16 05:20 HIV-1 RNA (PCR) Commentcopies/mL (.) HIV-1 RNA (PCR) log10 Value (.) Hold Urine Received (Received) White Blood Count 11.9th/mm3 (3.8-10.1) Red Blood Count 2.86mil/mm3 (4.40-5.80) Hemoglobin 7.7g/dL (13.8-17.2) Hematocrit 23.8% (41.0-50.0) Mean Corpuscular Volume 83.2fL (81-100) Mean Corpuscular Hemoglobin 26.9pg (27.0-35.0) Mean Corpuscular Hemoglobin Concent 32.4% (32.0-37.0) Red Cell Distribution Width 16.5% (12.3-15.4) Platelet Count 357bil/L (150-400) Neutrophils (%) (Auto) 77.2% (40-74) Lymphocytes (%) (Auto) 16.1% (14-46) Monocytes (%) (Auto) 5.0% (4-12) Eosinophils (%) (Auto) 0.4% (0-5) Basophils (%) (Auto) 0.2% (0-3) Erythrocyte Sedimentation Rate 76mm/hr (0-15) Sodium Level 144mEq/L (134-144) Potassium Level 3.8mEq/L (3.5-5.2) Chloride Level 113mEq/L (97-108) Carbon Dioxide Level 20mmol/L (18-29) Blood Urea Nitrogen 7mg/dL (6-20) Creatinine 1.04mg/dL (0.76-1.27) Estimat Glomerular Filtration Rate 90mL/min (>59) Glucose Level 93mg/dL (60-99) Calcium Level 7.4mg/dL (8.5-10.1) Magnesium Level 1.9mg/dL (1.6-2.6) Total Bilirubin 0.2mg/dL (0.0-1.2) Aspartate Amino Transf (AST/SGOT) 27U/L (0-50) Alanine Aminotransferase (ALT/SGPT) 17U/L (0-44) Alkaline Phosphatase 63U/L (25-150) C-Reactive Protein 2.6mg/dL (0.0-0.5) Total Protein 5.9g/dL (6.4-8.4) Albumin 2.1g/dL (3.4-5.0) Procalcitonin 0.13ng/mL (0.00-0.08) Assessment/Plan Assessment/Plan PARENTERAL NUTRITION ORDERS 4 09-Oct-16 Standard Hang Time: 2100 Substrates Total kcal: 873 AMINO ACIDS 70 g DEXTROSE 145 g Total Volume (mL): 1000 LIPIDS 10 g Sterile Water for Injection mL To Infuse Over (hrs): 24 Total Volume 1000 mL At at a rate of (mL/hr): 42 Additives Sodium Chloride 20 mEq "typical" daily requirements Sodium Acetate 10 mEq Sodium 50-120mEq Potassium Chloride 30 mEq Potassium 60-120mEq Potassium Phosphate 20 mEq Phosphate 20-40mEq Calcium Gluconate 9 mEq Magnesium 8-32mEq Magnesium Sulfate 4 mEq Calcium 9-22mEq Acetate* 80-120mEq Chloride* 80-120mEq Regular Insulin units *Depending on acid-base status Famotidine mg Multivitamins 1 std dose Insulin Regimen Trace Elements 1 std dose none Thiamine 100 mg Regular Low Intensity Subcut Folic Acid 1 mg Regular Medium Intensity Subcut Ascorbic Acid mg Regular High Intensity Subcut Regular Insulin Infusion Other: Special Instructions: To be infused via central line only. For delay or inturruption of TPN contact the pharmacist for alternative replacement solution. Signature Date: [facility] [address] [facility] Philip Saleh Pharm.D Oct 09, 2016 09:26
--- NOTE | 2016-10-09 18:40 | NUR ---
Vtach call recd from tele reporting 5 bts of vtach with 1 intrinsic beat in between, repeating 3x. Rate up to 120. RN in pts room at that time. Pt asymptomatic. notified. Will continue to monitor.
[2016-10-10] VITALS (8 sets, daily range): BP systolic 120–129; BP diastolic 73–84; PULSE 58–68; RESP 18; O2SAT 97–99
--- NOTE | 2016-10-10 00:13 | PCM.PNMED ---
Subjective Date of Service Oct 10, 2016 Subjective Patient states he is feeling better today. He has no new complaints. He has no fever, no chills and no diaphoresis. He has no nausea, no vomiting and no diarrhea. He has no hematemesis, no hematochezia and no melena. Exam Vital Signs Vital Sign - Last Date Time Temp Pulse Resp B/P Pulse Ox O2 Delivery O2 Flow Rate FiO2 10/09/16 23:44 36.8 60 18 125/74 98 Room Air Intake and Output 10/09/16 10/09/16 10/10/16 Cumulative From/Thru 15:00 23:00 07:00 10/01/16 12:57 - 10/09/16 18:08 Intake Total 114 ml 801 ml 50103 ml Output Total 825 ml 9802 ml Balance 114 ml -24 ml 25192 ml Intake Oral 672 ml 34249 ml IV Total 114 ml 129 ml 84711 ml Output Urine Total 825 ml 5350 ml Stool Total 1850 ml Urine/Stool Mix 2202 ml Emesis 400 ml # Voids 15 # Bowel Movements 7 Exam General: The patient is in no distress lying supine in bed. HEENT: Head is atraumatic and normocephalic. Eyes: Pupils are equally round and reactive to light and accommodation. Extraocular muscles are intact. Sclera are white, anicteric. Subconjunctival mucosa is . Ears and nose are unremarkable. Oropharynx: There is no mucosal lesions, there is no thrush, there is no pharyngitis. The patient's dentition is extremely poor. Oral mucosa is pale. Neck: Is supple, there are no nodes, or masses or tenderness. Chest: Is clear to auscultation and percussion. There are no rales, rhonchi, wheezes or rubs. Heart: Rate, rhythm is regular. There is a grade 2/6 systolic ejection murmur heard best left sternal border. There is no rub or gallop. Abdomen: Good bowel sounds are present. Abdomen is soft, nontender, no organomegaly or masses were appreciated. Extremities: Are symmetrical and well perfused. There is no edema, there is no cellulitis, no rash. Neurologic: There are no focal neurological deficits. Cranial nerves II through XII are intact. There are no sensory or motor deficits. Psychiatric: Patients mood is calm and he shows no sign of agitation. Genital: Deferred Rectal: Deferred Lab and Diagnostics Result Diagram: 10/09/1651910/09/16519 Microbiology Name: ORLIN BLACKMON Age/Sex: 31/M Attend Dr: Jerome Moya MD Acct: [id number] Unit: [id number] Status: ADM IN Location: [facility] 2026-03 Re10/01/16 Disch: Specimen: [id number] Collected: 10/03/16 Status: COMP Req#: [id number] Received: 10/03/16 Source: BLOOD Sp Desc : AA Raul Dr: Sri Rivero DO Ordered: BC Comments: Collected by Nurse/Unit? Y/N N Procedure Result Verified Site Microbiology MISSY CULTURE BLOOD Final 10/06/16-700 Organism 1 STAPHYLOCOCCUS AUREUS GRAM STAIN RESULT GRAM POSITIVE COCCI ?STAPH BC BOTTLE Isolated from Single Aerobic Bottle Drawn DATE CALLED: 10/04/16 TIME CALLED: 336 CALLED BY: CARA FLOOR/DOCTOR: ISRAEL LARIOS READ BACK YES TYPE OF DRAW PERIPHERAL DRAW TIME OF POSITIVITY 0320 GRAM STAIN RESULT GRAM POSITIVE COCCI ?STAPH BC BOTTLE2 Isolated from Anaerobic Bottle of Set Drawn DATE CALLED: 10/04/16 TIME CALLED: 337 CALLED BY: CARA FLOOR/DOCTOR: ISRAEL LARIOS READ BACK YES TYPE OF DRAW PERIPHERAL DRAW TIME OF POSITIVITY 0320 Oxacillin Susceptible Penicillin Resistant Staph spp. are Susceptible to Penicillin stable penicillins, Blactam/Blactamase inhibitor combinations, antistaphyloccal cephems, and carbapenems. ISOLATED FROM TWO OF THREE BOTTLES COLLECTED 10/03 1. STAPHYLOCOCCUS AUREUS M.I.C Interp --------- ------ * CEFAZOLIN S * CLINDAMYCIN <=0.25 S * ERYTHROMYCIN 0.5 S * LINEZOLID 2 S * MOXIFLOXACIN <=0.25 S CONTINUED ON NEXT PAGE RUN DATE: 10/06/16 [facility] PAGE 2 RUN TIME: 700 Specimen Inquiry PHYSICIAN Patient: ORLIN BLACKMON [id number] (Continued) Specimen: [id number] Collected: 10/03/16-944 Received: 10/03/16-1016 (Continued) Procedure Result Verified Site MISSY CULTURE BLOOD Final (continued) 10/06/16-700 1. STAPHYLOCOCCUS AUREUS (continued) M.IBetsy Interp --------- ------ * OXACILLIN MISSY 0.5 S * RIFAMPIN <=0.5 S * TETRACYCLINE <=1 S * TRIMETHOPRIM/SULFAMETHOXAZOLE <=10 S * VANCOMYCIN 1 S Name: EVYCHAOORLIN Age/Sex: 31/M Attend Dr: Liang Barr Acct: [id number] Unit: [id number] Status: ADM IN Location: [facility] [place] 3022-1 Re10/01/16 Disch: Specimen: [id number] Collected: 10/06/16 Status: RES Req#: [id number] Received: 10/06/16 Source: BLOOD Sp Desc : AER Subm Dr: LEDY RODAS DO Ordered: BC Comments: Collected by Nurse/Unit? Y/N N Procedure Result Verified Site Microbiology MISSY CULTURE BLOOD Preliminary 10/07/16-1705 Organism 1 POSITIVE BLOOD CULTURE GRAM STAIN RESULT GRAM POSITIVE COCCI ?STAPH BC BOTTLE Isolated from Aerobic Bottle of Set Drawn DATE CALLED: 10/07/16 TIME CALLED: 1600 CALLED BY: TORI FLOOR/DOCTOR: ASH/MARINO LARIOS READ BACK YES TYPE OF DRAW PERIPHERAL DRAW TIME OF POSITIVITY 1515 X-Rays, CTs and MRIs PROCEDURE: X-RAY CHEST ONE VIEW, PORTABLE ([id number]) INDICATIONS: fever, unknown source TECHNIQUE: One view of the chest was acquired. COMPARISON: None. FINDINGS: Surgical changes and devices: None. Lungs and pleura: No pleural effusions or pneumothorax. Lungs are clear. A nodular density in the right mid lung zone is probably caused by the nipple shadow. Mediastinum: Mediastinal contours appear normal. Heart size is normal. Bones and chest wall: No suspicious bony lesions. Overlying soft tissues appear unremarkable. IMPRESSION: No acute cardiopulmonary disease. Dictated by: Kenya Bush M.D. on 10/01/2016 at 15:10 Approved by: Kenya Bush M.D. on 10/01/2016 at 15:11 Cardiac Echo Impressions Echo Interpretation Summary The study quality was technically excellent. The left ventricle is normal in size. Left ventricular systolic function is normal without focal wall motion abnormalities. Left ventricular ejection fraction is estimated to be 55%. The right ventricle is normal in size, thickness and function. The right ventricular systolic pressure is estimated at 25 mmHg assuming a right atrial pressure of 3 mm Hg. Both atria are normal in size. There is no vegetation seen on the mitral valve, aortic valve, or pulmonic valve. There is a moderate size vegetation or mass on the tricuspid valve. The mass is located on the posterior tricuspid leaflet. There is mild tricuspid regurgitation. The aortic root is normal size. Assessment & Plan The patient is a 31-year-old white male with a 15 year history of IV drug use, primarily heroin, presenting to the hospital for a week of intermittent fevers, myalgias and severe malaise. The patient had noted that his girlfriend, who is in rehabilitation currently, was recently diagnosed as being Hep C positive. ( Not HIV.) The patient was admitted to the hospitalist service for further evaluation and treatment. Acute endocarditis, staph aureus. Present on admission, Active. - Blood culture positive for staph aureus, methicillin sensitive. Repeat blood cultures on 10/06/2016 are positive. Check ID and susceptibility. - Echo shows vegetations on the tricuspid valve as above. - Initially placed on Vancomycin 10/01/16. Started Nafcillin 10/04 after sensitivities resulted. However due to increasing creatinine and concern for possible interstitial nephritis nafcillin was discontinued and Ancef was started. Check ID of recent positive blood culture and susceptibilities. - We will discontinue Nafcillin IV due to increasing creatinine and concern for possible interstitial nephritis. We have replaced with Ancef 2 g iv every 8 hours and renal function has improved today. Urine for eosinophils is pending. - Brief run of VTach 10/05/16, cardiology called and patient was placed on Amiodarone 400 BID PO. We will continue for now. - Repeat Blood cultures on 10/06/2016 are positive. ID and susceptibility.. We will also check repeat blood cultures today on 10/08/2016. Anemia, worsening since admission. Active -Check serum iron and TIBC - Check serum folate and B12 levels - Check serum ferritin and reticulocyte count - Check stool for occult blood. Hepatitis C, Present on admission, Active. - HCV genotype pending and Quantitative 2,450,000, Hep C abd >11.0. - Defer to outpatient follow up with GI. - HIV negative. Continuous opiate dependence, heroin addiction. Present on admission. Active. Last used 2 weeks ago, low risk for withdrawal syndrome. Methamphetamine abuse syndrome, Present on admission. Active.. - Last use 2 weeks ago. - Follow clinically. Acetaminophen for mild pain when necessary. Bowel regimen Senna and MiraLAX scheduled and PRN. Zofran when necessary for nausea and vomiting. SubQ heparin held for now. SCDs in place. High-risk medications: NONE. Social: Patient is a high risk individual for loss to follow up and concerns that he may not complete treatment if discharged. Patient is full resuscitation. Disposition. Patient will be here until blood cultures are negative. Then possible arrangements for transfer to a swing bed might be feasible for continued IV antibiotics. Pain Evaluation: Adequate Pain Control VTE Mechanical Devices: Venous Foot Pump Resuscitation Status: CPR: Attempt Resuscitation CortneyLiang MD Oct 10, 2016 00:13
[2016-10-10 06:05] LABS: BASOPHILS % (AUTO) 0.3 % (0-3); EOSINOPHILS % (AUTO) 0.1 % (0-5); MONOCYTES % (AUTO) 4.4 % (4-12); Mean Corpuscular Hemoglobin 26.9 pg (27.0-35.0); Mean Corpuscular Volume 83.7 fL (81-100); NEUTROPHILS % (AUTO) 81.3 % (40-74); Platelet Count 378 bil/L (150-400)
[2016-10-10 06:30] LABS: Unsaturated Iron Binding 175.1 ug/dL
--- NOTE | 2016-10-10 06:35 | NUR ---
Activity Ambulating in room without any noted issues. No reports of ectopy per patient monitor. Denies pain and discomfort. Using call light for needs.
[2016-10-10] MEDS: CeFAZolin 2 Gm/50 mL D5W IV Premix IV SCH ×2 (08:55→17:23)
[2016-10-10] MEDS: Heparin 5,000 Unit/mL Inj SUBQ SCH ×2 (08:55→17:23)
--- NOTE | 2016-10-10 18:39 | NUR ---
Chemical Dep. Pt received chemical dependency contract. Was upset that it was presented in an accusatory approach. Calmed down after primary RN reassured pt that this was policy and not personal. Pts mom and girlfriend were present. Personal belongings were locked up and no sharps container present in room. Pt states he has a good support system and wants to stay clean.
--- NOTE | 2016-10-10 22:39 | PCM.PNMED ---
Subjective Date of Service Oct 10, 2016 Subjective The patient states that his felt much better since I switched him from nafcillin to Ancef. He states he can feel a difference in well-being. He states that the nafcillin made him feel very tired. He is not feeling that way on Ancef. Exam Vital Signs Vital Sign - Last Date Time Temp Pulse Resp B/P Pulse Ox O2 Delivery O2 Flow Rate FiO2 10/10/16 20:18 36.7 63 18 129/74 99 Room Air Intake and Output 10/09/16 10/09/16 10/10/16 Cumulative From/Thru 15:00 23:00 07:00 10/01/16 12:57 - 10/10/16 05:23 Intake Total 114 ml 801 ml 100 ml 55007 ml Output Total 825 ml 9802 ml Balance 114 ml -24 ml 100 ml 23483 ml Intake Oral 672 ml 100 ml 72446 ml IV Total 114 ml 129 ml 0 ml 99959 ml Output Urine Total 825 ml 5350 ml Stool Total 1850 ml Urine/Stool Mix 2202 ml Emesis 400 ml # Voids 1 16 # Bowel Movements 7 Exam General: The patient is in no distress lying supine in bed. HEENT: Head is atraumatic and normocephalic. Eyes: Pupils are equally round and reactive to light and accommodation. Extraocular muscles are intact. Sclera are white, anicteric. Subconjunctival mucosa is . Ears and nose are unremarkable. Oropharynx: There is no mucosal lesions, there is no thrush, there is no pharyngitis. The patient's dentition is extremely poor. Oral mucosa is pale. Neck: Is supple, there are no nodes, or masses or tenderness. Chest: Is clear to auscultation and percussion. There are no rales, rhonchi, wheezes or rubs. Heart: Rate, rhythm is regular. There is a grade 2/6 systolic ejection murmur heard best left sternal border. There is no rub or gallop. Abdomen: Good bowel sounds are present. Abdomen is soft, nontender, no organomegaly or masses were appreciated. Extremities: Are symmetrical and well perfused. There is no edema, there is no cellulitis, no rash. Neurologic: There are no focal neurological deficits. Cranial nerves II through XII are intact. There are no sensory or motor deficits. Psychiatric: Patients mood is calm and he shows no sign of agitation. Genital: Deferred Rectal: Deferred Lab and Diagnostics Result Diagram: 10/10/16 0550 10/10/16 0550 Microbiology The repeat blood cultures from 10/08/2016 are again positive for a gram- positive cocci. Name: ORLIN BLACKMON Age/Sex: 31/M Attend Dr: Jerome Moya MD Acct: [id number] Unit: [id number] Status: ADM IN Location: [facility] 2026-03 Re10/01/16 Disch: Specimen: [id number] Collected: 10/03/16 Status: COMP Req#: [id number] Received: 10/03/16 Source: BLOOD Sp Desc : SHARONDA Carter Dr: Sri Rivero DO Ordered: HARRIET Comments: Collected by Nurse/Unit? Y/N N Procedure Result Verified Site Microbiology MISSY CULTURE BLOOD Final 10/06/16-700 Organism 1 STAPHYLOCOCCUS AUREUS GRAM STAIN RESULT GRAM POSITIVE COCCI ?STAPH BC BOTTLE Isolated from Single Aerobic Bottle Drawn DATE CALLED: 10/04/16 TIME CALLED: 033 CALLED BY: CARA FLOOR/DOCTOR: ISRAEL LARIOS READ BACK YES TYPE OF DRAW PERIPHERAL DRAW TIME OF POSITIVITY 0320 GRAM STAIN RESULT GRAM POSITIVE COCCI ?STAPH BC BOTTLE2 Isolated from Anaerobic Bottle of Set Drawn DATE CALLED: 10/04/16 TIME CALLED: 033 CALLED BY: CARA FLOOR/DOCTOR: ISRAEL LARIOS READ BACK YES TYPE OF DRAW PERIPHERAL DRAW TIME OF POSITIVITY 0320 Oxacillin Susceptible Penicillin Resistant Staph spp. are Susceptible to Penicillin stable penicillins, Blactam/Blactamase inhibitor combinations, antistaphyloccal cephems, and carbapenems. ISOLATED FROM TWO OF THREE BOTTLES COLLECTED 10/03 1. STAPHYLOCOCCUS AUREUS M.I.C Interp --------- ------ * CEFAZOLIN S * CLINDAMYCIN <=0.25 S * ERYTHROMYCIN 0.5 S * LINEZOLID 2 S * MOXIFLOXACIN <=0.25 S CONTINUED ON NEXT PAGE RUN DATE: 10/06/16 [facility] LIVE PAGE 2 RUN TIME: 700 Specimen Inquiry PHYSICIAN Patient: NEYMARORLIN [id number] (Continued) Specimen: [id number] Collected: 10/03/16 Received: 10/03/16-1016 (Continued) Procedure Result Verified Site MISSY CULTURE BLOOD Final (continued) 10/06/16-700 1. STAPHYLOCOCCUS AUREUS (continued) Uli Interp --------- ------ * OXACILLIN MISSY 0.5 S * RIFAMPIN <=0.5 S * TETRACYCLINE <=1 S * TRIMETHOPRIM/SULFAMETHOXAZOLE <=10 S * VANCOMYCIN 1 S Name: LORIN BLACKMONKSANDR Age/Sex: 31/M Attend Dr: Liang Barr Acct: [id number] Unit: [id number] Status: ADM IN Location: [facility] [place] 3022-1 Re10/01/16 Disch: Specimen: [id number] Collected: 10/06/16 Status: RES Req#: [id number] Received: 10/06/16 Source: BLOOD Sp Desc : AER Subm Dr: LEDY RODAS DO Ordered: BC Comments: Collected by Nurse/Unit? Y/N N Procedure Result Verified Site Microbiology MISSY CULTURE BLOOD Preliminary 10/07/16-1705 Organism 1 POSITIVE BLOOD CULTURE GRAM STAIN RESULT GRAM POSITIVE COCCI ?STAPH BC BOTTLE Isolated from Aerobic Bottle of Set Drawn DATE CALLED: 10/07/16 TIME CALLED: 1600 CALLED BY: TORI JONAS/DOCTOR: ASH/MARINO LARIOS READ BACK YES TYPE OF DRAW PERIPHERAL DRAW TIME OF POSITIVITY 1515 X-Rays, CTs and MRIs PROCEDURE: X-RAY CHEST ONE VIEW, PORTABLE ([id number]) INDICATIONS: fever, unknown source TECHNIQUE: One view of the chest was acquired. COMPARISON: None. FINDINGS: Surgical changes and devices: None. Lungs and pleura: No pleural effusions or pneumothorax. Lungs are clear. A nodular density in the right mid lung zone is probably caused by the nipple shadow. Mediastinum: Mediastinal contours appear normal. Heart size is normal. Bones and chest wall: No suspicious bony lesions. Overlying soft tissues appear unremarkable. IMPRESSION: No acute cardiopulmonary disease. Dictated by: Kenya Bush M.D. on 10/01/2016 at 15:10 Approved by: Kenya Bush M.D. on 10/01/2016 at 15:11 Cardiac Echo Impressions Echo Interpretation Summary The study quality was technically excellent. The left ventricle is normal in size. Left ventricular systolic function is normal without focal wall motion abnormalities. Left ventricular ejection fraction is estimated to be 55%. The right ventricle is normal in size, thickness and function. The right ventricular systolic pressure is estimated at 25 mmHg assuming a right atrial pressure of 3 mm Hg. Both atria are normal in size. There is no vegetation seen on the mitral valve, aortic valve, or pulmonic valve. There is a moderate size vegetation or mass on the tricuspid valve. The mass is located on the posterior tricuspid leaflet. There is mild tricuspid regurgitation. The aortic root is normal size. Assessment & Plan The patient is a 31-year-old white male with a 15 year history of IV drug use, primarily heroin, presenting to the hospital for a week of intermittent fevers, myalgias and severe malaise. The patient had noted that his girlfriend, who is in rehabilitation currently, was recently diagnosed as being Hep C positive. ( Not HIV.) The patient was admitted to the hospitalist service for further evaluation and treatment. Acute endocarditis, staph aureus. Present on admission, Active. - Blood culture positive for staph aureus, methicillin sensitive. Repeat blood cultures on 10/06/2016 are positive. Check ID and susceptibility. - Echo shows vegetations on the tricuspid valve as above. - Initially placed on Vancomycin 10/01/16. Started Nafcillin 10/04 after sensitivities resulted. However due to increasing creatinine and concern for possible interstitial nephritis nafcillin was discontinued and Ancef was started. Check ID of recent positive blood culture and susceptibilities. - We have discontinued Nafcillin IV due to increasing creatinine and concern for possible interstitial nephritis. We have replaced with Ancef 2 g iv every 8 hours and renal function has improved today. Urine for eosinophils is pending. - Brief run of VTach 10/05/16, cardiology called and patient was placed on Amiodarone 400 BID PO. We will continue for now. - Repeat Blood cultures on 10/06/2016 are positive. ID and susceptibility.. We will also check repeat blood cultures today on 10/08/2016. Anemia, worsening overall since admission. Active - Check serum iron levels are slightly low. Will add ferrous gluconate by mouth daily - Check serum folate and B12 levels which are pending. - Check serum ferritin and reticulocyte count - Check stool for occult blood. Which is pending. Hepatitis C, Present on admission, Active. - HCV genotype pending and Quantitative 2,450,000, Hep C abd >11.0. - Defer to outpatient follow up with GI. - HIV negative. Continuous opiate dependence, heroin addiction. Present on admission. Active. Last used 2 weeks ago, low risk for withdrawal syndrome. Methamphetamine abuse syndrome, Present on admission. Active.. - Last use 2 weeks ago. - Follow clinically. Acetaminophen for mild pain when necessary. Bowel regimen Senna and MiraLAX scheduled and PRN. Zofran when necessary for nausea and vomiting. SubQ heparin held for now. SCDs in place. High-risk medications: NONE. Social: Patient is a high risk individual for loss to follow up and concerns that he may not complete treatment if discharged. Patient is full resuscitation. Disposition. Patient will be here until blood cultures are negative. Then possible arrangements for transfer to a swing bed might be feasible for continued IV antibiotics. Pain Evaluation: Adequate Pain Control VTE Mechanical Devices: Venous Foot Pump Resuscitation Status: CPR: Attempt Resuscitation FairmountLiang MD Oct 10, 2016 22:39
[2016-10-11] VITALS (8 sets, daily range): BP systolic 109–127; BP diastolic 66–79; PULSE 57–68; RESP 18–19; O2SAT 97–99
[2016-10-11] MEDS: Heparin 5,000 Unit/mL Inj SUBQ SCH ×3 (00:06→17:44)
[2016-10-11] MEDS: CeFAZolin 2 Gm/50 mL D5W IV Premix IV SCH ×3 (00:06→17:44)
[2016-10-11 04:49] LABS: BASOPHILS % (AUTO) 0.3 % (0-3); EOSINOPHILS % (AUTO) 0 % (0-5); MONOCYTES % (AUTO) 4.4 % (4-12); Mean Corpuscular Hemoglobin 27.3 pg (27.0-35.0); Mean Corpuscular Volume 84.4 fL (81-100); NEUTROPHILS % (AUTO) 80.3 % (40-74); Platelet Count 422 bil/L (150-400)
[2016-10-11 05:08] LABS: ERYTHROCYTE SEDIMENTATION RATE 76 mm/hr (0-15)
[2016-10-11 05:19] LABS: Magnesium 1.8 mg/dL (1.6-2.6)
--- NOTE | 2016-10-11 05:49 | NUR ---
NOC Activity Pt denies chest pain, sob, n/v or abd discomfort. Cooperative with care. HS meds administered as scheduled. Blood drawn from picc as ordered. VSS and has been afebrile overnight.
[2016-10-11] MEDS ORDERED: Magnesium Sulf 2 Gm/50mL Water 2 GM in IV Premix 1 EACH IV ONE (09:00)
--- NOTE | 2016-10-11 10:52 | NUR ---
Social Work-continued d/c planning: Data:EMR reviewed. Pt is on day 10 of hospitalization for sepsis per H&P. Pt is not medically stable anticipate pt to be here for several weeks for IV abx. Pt has declined CD resources. Pt continues to have positive blood cultures. ID to see pt today. Referral has been sent to [facility] Bed unit, but pt is not medically stable at this time for discharge to this facility. SW will continue to follow. Assessment:Pt who will require several weeks of IV abx. Plan:Pt to likely remain at [facility] For IV abx, once medically stable referral has been made to [facility] Bed unit. SW will continue to follow. RAZ Luna
[2016-10-12] VITALS (8 sets, daily range): BP systolic 103–122; BP diastolic 61–67; PULSE 52–68; RESP 18–21; O2SAT 95–99
[2016-10-12] MEDS ORDERED: 0.9% Sodium Chloride 250 ML ONE ×2 (00:04→18:02)
[2016-10-12] MEDS: Heparin 5,000 Unit/mL Inj SUBQ SCH ×3 (00:10→16:47)
[2016-10-12] MEDS: CeFAZolin 2 Gm/50 mL D5W IV Premix IV SCH ×3 (00:11→16:47)
--- NOTE | 2016-10-12 02:00 | PCM.PNMED ---
Subjective Date of Service Oct 12, 2016 Subjective The patient has no new complaints except for slight cough. In general he feels well. He has no fever, no chills and no diaphoresis. He has no chest pain. Exam Vital Signs Vital Sign - Last Date Time Temp Pulse Resp B/P Pulse Ox O2 Delivery O2 Flow Rate FiO2 10/12/16 00:30 36.9 52 19 110/63 99 Room Air Intake and Output 10/11/16 10/11/16 10/12/16 Cumulative From/Thru 15:00 23:00 07:00 10/01/16 12:57 - 10/12/16 00:30 Intake Total 1107 ml 21083 ml Output Total 47616 ml Balance 1107 ml 72597 ml Intake Oral 945 ml 35905 ml IV Total 162 ml 11870 ml Output Urine Total 5850 ml Stool Total 1850 ml Urine/Stool Mix 2202 ml Emesis 400 ml # Voids 3 23 # Bowel Movements 1 9 Exam General: The patient is in no distress lying supine in bed. He is in good spirits and very cooperative. His mother is visiting at bedside. HEENT: Head is atraumatic and normocephalic. Eyes: Pupils are equally round and reactive to light and accommodation. Extraocular muscles are intact. Sclera are white, anicteric. Subconjunctival mucosa is . Ears and nose are unremarkable. Oropharynx: There is no mucosal lesions, there is no thrush, there is no pharyngitis. The patient's dentition is extremely poor. Oral mucosa is pale. Neck: Is supple, there are no nodes, or masses or tenderness. Chest: Is significant for rales at the right base. There are no wheezes, rhonchi or rubs. Heart: Rate, rhythm is regular. There is a grade 2/6 systolic ejection murmur heard best left sternal border. There is no rub or gallop. Abdomen: Good bowel sounds are present. Abdomen is soft, nontender, no organomegaly or masses were appreciated. Extremities: Are symmetrical and well perfused. There is no edema, there is no cellulitis, no rash. Neurologic: There are no focal neurological deficits. Cranial nerves II through XII are intact. There are no sensory or motor deficits. Psychiatric: Patients mood is calm and he shows no sign of agitation. Genital: Deferred Rectal: Deferred Lab and Diagnostics Result Diagram: 10/11/1642910/11/16429 Microbiology The repeat blood cultures from 10/08/2016 are again positive for a gram- positive cocci. Name: ORLIN BLACKMON Age/Sex: 31/M Attend Dr: Jerome Moya MD Acct: [id number] Unit: [id number] Status: ADM IN Location: [facility] 2026-03 Re10/01/16 Disch: Specimen: [id number] Collected: 10/03/16 Status: COMP Req#: [id number] Received: 10/03/16 Source: BLOOD Sp Desc : SHARONDA Carter Dr: Sri Rivero DO Ordered: Comments: Collected by Nurse/Unit? Y/N N Procedure Result Verified Site Microbiology MISSY CULTURE BLOOD Final 10/06/16-700 Organism 1 STAPHYLOCOCCUS AUREUS GRAM STAIN RESULT GRAM POSITIVE COCCI ?STAP BC BOTTLE Isolated from Single Aerobic Bottle Drawn DATE CALLED: 10/04/16 TIME CALLED: 336 CALLED BY: CARA FLOOR/DOCTOR: ISRAEL LARIOS READ BACK YES TYPE OF DRAW PERIPHERAL DRAW TIME OF POSITIVITY 0320 GRAM STAIN RESULT GRAM POSITIVE COCCI ?STAPH BC BOTTLE2 Isolated from Anaerobic Bottle of Set Drawn DATE CALLED: 10/04/16 TIME CALLED: 337 CALLED BY: CARA FLOOR/DOCTOR: ISRAEL LARIOS READ BACK YES TYPE OF DRAW PERIPHERAL DRAW TIME OF POSITIVITY 0320 Oxacillin Susceptible Penicillin Resistant Staph spp. are Susceptible to Penicillin stable penicillins, Blactam/Blactamase inhibitor combinations, antistaphyloccal cephems, and carbapenems. ISOLATED FROM TWO OF THREE BOTTLES COLLECTED 10/03 1. STAPHYLOCOCCUS AUREUS M.I.C Interp --------- ------ * CEFAZOLIN S * CLINDAMYCIN <=0.25 S * ERYTHROMYCIN 0.5 S * LINEZOLID 2 S * MOXIFLOXACIN <=0.25 S CONTINUED ON NEXT PAGE RUN DATE: 10/06/16 [facility] LIVE PAGE 2 RUN TIME: 700 Specimen Inquiry PHYSICIAN Patient: ORLIN BLACKMON [id number] (Continued) Specimen: [id number] Collected: 10/03/16-944 Received: 10/03/16-1016 (Continued) Procedure Result Verified Site MISSY CULTURE BLOOD Final (continued) 10/06/16-700 1. STAPHYLOCOCCUS AUREUS (continued) Uli Interp --------- ------ * OXACILLIN MISSY 0.5 S * RIFAMPIN <=0.5 S * TETRACYCLINE <=1 S * TRIMETHOPRIM/SULFAMETHOXAZOLE <=10 S * VANCOMYCIN 1 S Name: ORLIN BLACKMON Age/Sex: 31/M Attend Dr: Liang Barr Acct: [id number] Unit: [id number] Status: ADM IN Location: [facility] [place] 3022-1 Re10/01/16 Disch: Specimen: [id number] Collected: 10/06/16 Status: RES Req#: [id number] Received: 10/06/16 Source: BLOOD Sp Desc : AER Subm Dr: LEDY RODAS DO Ordered: BC Comments: Collected by Nurse/Unit? Y/N N Procedure Result Verified Site Microbiology MISSY CULTURE BLOOD Preliminary 10/07/16-1705 Organism 1 POSITIVE BLOOD CULTURE GRAM STAIN RESULT GRAM POSITIVE COCCI ?STAPH BC BOTTLE Isolated from Aerobic Bottle of Set Drawn DATE CALLED: 10/07/16 TIME CALLED: 1600 CALLED BY: TORI FLOOR/DOCTOR: ASH/MARINO LARIOS READ BACK YES TYPE OF DRAW PERIPHERAL DRAW TIME OF POSITIVITY 1515 X-Rays, CTs and MRIs PROCEDURE: X-RAY CHEST ONE VIEW, PORTABLE ([id number]) INDICATIONS: fever, unknown source TECHNIQUE: One view of the chest was acquired. COMPARISON: None. FINDINGS: Surgical changes and devices: None. Lungs and pleura: No pleural effusions or pneumothorax. Lungs are clear. A nodular density in the right mid lung zone is probably caused by the nipple shadow. Mediastinum: Mediastinal contours appear normal. Heart size is normal. Bones and chest wall: No suspicious bony lesions. Overlying soft tissues appear unremarkable. IMPRESSION: No acute cardiopulmonary disease. Dictated by: Kenya Bush M.D. on 10/01/2016 at 15:10 Approved by: Kenya Bush M.D. on 10/01/2016 at 15:11 Cardiac Echo Impressions Echo Interpretation Summary The study quality was technically excellent. The left ventricle is normal in size. Left ventricular systolic function is normal without focal wall motion abnormalities. Left ventricular ejection fraction is estimated to be 55%. The right ventricle is normal in size, thickness and function. The right ventricular systolic pressure is estimated at 25 mmHg assuming a right atrial pressure of 3 mm Hg. Both atria are normal in size. There is no vegetation seen on the mitral valve, aortic valve, or pulmonic valve. There is a moderate size vegetation or mass on the tricuspid valve. The mass is located on the posterior tricuspid leaflet. There is mild tricuspid regurgitation. The aortic root is normal size. Assessment & Plan The patient is a 31-year-old white male with a 15 year history of IV drug use, primarily heroin, presenting to the hospital for a week of intermittent fevers, myalgias and severe malaise. The patient had noted that his girlfriend, who is in rehabilitation currently, was recently diagnosed as being Hep C positive. ( Not HIV.) The patient was admitted to the hospitalist service for further evaluation and treatment. Acute endocarditis, staph aureus. Present on admission, Active. - Blood culture positive for staph aureus, methicillin sensitive. Repeat blood cultures on 10/06/2016 are positive. Check ID and susceptibility. - Echo shows vegetations on the tricuspid valve as above. - Initially placed on Vancomycin 10/01/16. Started Nafcillin 10/04 after sensitivities resulted. However due to increasing creatinine and concern for possible interstitial nephritis nafcillin was discontinued and Ancef was started. Check ID of recent positive blood culture and susceptibilities. - We have discontinued Nafcillin IV due to increasing creatinine and concern for possible interstitial nephritis. We have replaced with Ancef 2 g iv every 8 hours and renal function has improved today. Urine for eosinophils is pending. - Brief run of VTa 10/05/16, cardiology called and patient was placed on Amiodarone 400 BID PO. We will continue for now. - Repeat Blood cultures on 10/06/2016 are positive. ID and susceptibility.. We will also check repeat blood cultures today on 10/08/2016. - Check chest x-ray in a.m. If white blood cell count continues to rise would do CT scan of the chest looking for septic emboli/cannonball lesions or abscesses. Anemia, worsening overall since admission. Active - Check serum iron levels are slightly low. Will have added ferrous gluconate by mouth daily - Check serum folate and B12 levels which are pending. - Check serum ferritin and reticulocyte count - Check stool for occult blood. Which is pending. Hepatitis C, Present on admission, Active. - HCV genotype pending and Quantitative 2,450,000, Hep C abd >11.0. - Defer to outpatient follow up with GI. - HIV negative. Continuous opiate dependence, heroin addiction. Present on admission. Active. Last used 2 weeks ago, low risk for withdrawal syndrome. Methamphetamine abuse syndrome, Present on admission. Active.. - Last use 2 weeks ago. - Follow clinically. Acetaminophen for mild pain when necessary. Bowel regimen Senna and MiraLAX scheduled and PRN. Zofran when necessary for nausea and vomiting. SubQ heparin held for now. SCDs in place. High-risk medications: NONE. Social: Patient is a high risk individual for loss to follow up and concerns that he may not complete treatment if discharged. Patient is full resuscitation. Disposition. Patient will be here until blood cultures are negative. Then possible arrangements for transfer to a swing bed might be feasible for continued IV antibiotics. Infectious disease was consulted will await Dr. Rodriguez is evaluation and treatment plan. Dr. Price will follow in a.m. Pain Evaluation: Adequate Pain Control VTE Mechanical Devices: Venous Foot Pump Resuscitation Status: CPR: Attempt Resuscitation CarrollLiang MD Oct 12, 2016 02:00
[2016-10-12 05:05] LABS: BASOPHILS % (AUTO) 0.3 % (0-3); EOSINOPHILS % (AUTO) 0 % (0-5); MONOCYTES % (AUTO) 5.2 % (4-12); Mean Corpuscular Hemoglobin 27.2 pg (27.0-35.0); Mean Corpuscular Volume 84.6 fL (81-100); NEUTROPHILS % (AUTO) 80.1 % (40-74); Platelet Count 450 bil/L (150-400)
--- NOTE | 2016-10-12 05:17 | NUR ---
NOC activity Pt has been alert and oriented. Denies chest pain, sob, n/v or abd discomfort. Telemetry monitoring noted no ektopy. HS meds administered as scheduled. VSS and has been afebrile overnight. Blood drawn on picc line and was sent to the lab. Will continue to monitor.
--- NOTE | 2016-10-12 11:00 | PCM.PNMED ---
Subjective Date of Service Oct 12, 2016 Subjective Patient seen and examined. No complains. Pain in control. Vitals stable. Exam Vital Signs Vital Sign - Last Date Time Temp Pulse Resp B/P Pulse Ox O2 Delivery O2 Flow Rate FiO2 10/12/16 09:04 37.0 62 20 122/65 98 Room Air Intake and Output 10/11/16 10/11/16 10/12/16 Cumulative From/Thru 15:00 23:00 07:00 10/01/16 12:57 - 10/12/16 06:38 Intake Total 1107 ml 346 ml 59892 ml Output Total 24004 ml Balance 1107 ml 346 ml 12242 ml Intake Oral 945 ml 237 ml 00474 ml IV Total 162 ml 109 ml 41468 ml Output Urine Total 5850 ml Stool Total 1850 ml Urine/Stool Mix 2202 ml Emesis 400 ml # Voids 3 2 25 # Bowel Movements 1 9 Lab and Diagnostics Result Diagram: 10/12/16 0500 10/12/16 0500 Microbiology The repeat blood cultures from 10/08/2016 are again positive for a gram- positive cocci. Name: ORLIN BLACKMON Age/Sex: 31/M Attend Dr: Jerome Moya MD Acct: [id number] Unit: [id number] Status: ADM IN Location: [facility] 2026-03 Re10/01/16 Disch: Specimen: [id number] Collected: 10/03/16 Status: COMP Req#: [id number] Received: 10/03/16 Source: BLOOD Sp Desc : SHARONDA Carter Dr: Sri Rivero DO Ordered: Comments: Collected by Nurse/Unit? Y/N N Procedure Result Verified Site Microbiology MISSY CULTURE BLOOD Final 10/06/16-700 Organism 1 STAPHYLOCOCCUS AUREUS GRAM STAIN RESULT GRAM POSITIVE COCCI ?STAPH BC BOTTLE Isolated from Single Aerobic Bottle Drawn DATE CALLED: 10/04/16 TIME CALLED: 033 CALLED BY: CARA FLOOR/DOCTOR: ISRAEL LARIOS READ BACK YES TYPE OF DRAW PERIPHERAL DRAW TIME OF POSITIVITY 0320 GRAM STAIN RESULT GRAM POSITIVE COCCI ?STAPH BC BOTTLE2 Isolated from Anaerobic Bottle of Set Drawn DATE CALLED: 10/04/16 TIME CALLED: 0338 CALLED BY: CARA FLOOR/DOCTOR: ISRAEL LARIOS READ BACK YES TYPE OF DRAW PERIPHERAL DRAW TIME OF POSITIVITY 0320 Oxacillin Susceptible Penicillin Resistant Staph spp. are Susceptible to Penicillin stable penicillins, Blactam/Blactamase inhibitor combinations, antistaphyloccal cephems, and carbapenems. ISOLATED FROM TWO OF THREE BOTTLES COLLECTED 10/03 1. STAPHYLOCOCCUS AUREUS M.I.C Interp --------- ------ * CEFAZOLIN S * CLINDAMYCIN <=0.25 S * ERYTHROMYCIN 0.5 S * LINEZOLID 2 S * MOXIFLOXACIN <=0.25 S CONTINUED ON NEXT PAGE RUN DATE: 10/06/16 Merged with [facility] LIVE PAGE 2 RUN TIME: 700 Specimen Inquiry PHYSICIAN Patient: ORLIN BLACKMON [id number] (Continued) Specimen: [id number] Collected: 10/03/16 Received: 10/03/16-1015 (Continued) Procedure Result Verified Site MISSY CULTURE BLOOD Final (continued) 10/06/16-700 1. STAPHYLOCOCCUS AUREUS (continued) M.I.C Interp --------- ------ * OXACILLIN MISSY 0.5 S * RIFAMPIN <=0.5 S * TETRACYCLINE <=1 S * TRIMETHOPRIM/SULFAMETHOXAZOLE <=10 S * VANCOMYCIN 1 S Name: ORLIN BLACKMON Age/Sex: 31/M Attend Dr: Liang Barr Acct: [id number] Unit: [id number] Status: ADM [place] [facility] [place] Re10/01/16 Disch: Specimen: [id number] Collected: 10/06/16 Status: RES Req#: [id number] Received: 10/06/16 Source: BLOOD Sp Desc : AER Subm Dr: LEDY RODAS DO Ordered: HARRIET Comments: Collected by Nurse/Unit? Y/N N Procedure Result Verified Site Microbiology MISSY CULTURE BLOOD Preliminary 10/07/16-1706 Organism 1 POSITIVE BLOOD CULTURE GRAM STAIN RESULT GRAM POSITIVE COCCI ?STAPH BC BOTTLE Isolated from Aerobic Bottle of Set Drawn DATE CALLED: 10/07/16 TIME CALLED: 1600 CALLED BY: TORI FLOOR/DOCTOR: ASH/MARINO LARIOS READ BACK YES TYPE OF DRAW PERIPHERAL DRAW TIME OF POSITIVITY 1515 X-Rays, CTs and MRIs PROCEDURE: X-RAY CHEST ONE VIEW, PORTABLE ([id number]) INDICATIONS: fever, unknown source TECHNIQUE: One view of the chest was acquired. COMPARISON: None. FINDINGS: Surgical changes and devices: None. Lungs and pleura: No pleural effusions or pneumothorax. Lungs are clear. A nodular density in the right mid lung zone is probably caused by the nipple shadow. Mediastinum: Mediastinal contours appear normal. Heart size is normal. Bones and chest wall: No suspicious bony lesions. Overlying soft tissues appear unremarkable. IMPRESSION: No acute cardiopulmonary disease. Dictated by: Kenya Bush M.D. on 10/01/2016 at 15:10 Approved by: Kenya Bush M.D. on 10/01/2016 at 15:11 Cardiac Echo Impressions Echo Interpretation Summary The study quality was technically excellent. The left ventricle is normal in size. Left ventricular systolic function is normal without focal wall motion abnormalities. Left ventricular ejection fraction is estimated to be 55%. The right ventricle is normal in size, thickness and function. The right ventricular systolic pressure is estimated at 25 mmHg assuming a right atrial pressure of 3 mm Hg. Both atria are normal in size. There is no vegetation seen on the mitral valve, aortic valve, or pulmonic valve. There is a moderate size vegetation or mass on the tricuspid valve. The mass is located on the posterior tricuspid leaflet. There is mild tricuspid regurgitation. The aortic root is normal size. Assessment & Plan The patient is a 31-year-old white male with a 15 year history of IV drug use, primarily heroin, presenting to the hospital for a week of intermittent fevers, myalgias and severe malaise. The patient had noted that his girlfriend, who is in rehabilitation currently, was recently diagnosed as being Hep C positive. ( Not HIV.) The patient was admitted to the hospitalist service for further evaluation and treatment. Acute endocarditis, staph aureus. Present on admission, Active. - Blood culture positive for staph aureus, methicillin sensitive. Repeat blood cultures on 10/06/2016 are positive. Repeat cultures pending final read - Echo shows vegetations on the tricuspid valve as above. - Initially placed on Vancomycin 10/01/16. Started Nafcillin 10/04 after sensitivities resulted. However due to increasing creatinine and concern for possible interstitial nephritis nafcillin was discontinued and Ancef was started. - discontinued Nafcillin IV due to increasing creatinine and concern for possible interstitial nephritis. We have replaced with Ancef 2 g iv every 8 hours and renal function has improved . Urine for eosinophils pending - Brief run of VTach 10/05/16, cardiology called and patient was placed on Amiodarone 400 BID PO. We will continue for now. - Repeat Blood cultures on 10/06/2016 are positive. Repeat cultures on 2016 pending. - repeat CXR - suggestive of aspiration pneumonia , patient is on ancef - ID consult Anemia, worsening overall since admission. Stabilized - serum iron levels are slightly low. ferrous gluconate by mouth daily - Folate and B12 normal - retic count high - Ferritin normal - anemia likely secondary to hemolysis Hepatitis C, Present on admission, Active. - HCV genotype pending and Quantitative 2,450,000, Hep C abd >11.0. - Defer to outpatient follow up with GI. - HIV negative. Continuous opiate dependence, heroin addiction. Present on admission. Active. Last used 2 weeks ago, low risk for withdrawal syndrome. Methamphetamine abuse syndrome, Present on admission. Active.. - Last use 2 weeks ago. - Follow clinically. Acetaminophen for mild pain when necessary. Bowel regimen Senna and MiraLAX scheduled and PRN. Zofran when necessary for nausea and vomiting. SubQ heparin held for now. SCDs in place. High-risk medications: NONE. Social: Patient is a high risk individual for loss to follow up and concerns that he may not complete treatment if discharged. Patient is full resuscitation. Disposition. Patient will be here until blood cultures are negative. Then possible arrangements for transfer to a swing bed might be feasible for continued IV antibiotics. Infectious disease was consulted will await Dr. Rodriguez is evaluation and treatment plan. . VTE Mechanical Devices: Venous Foot Pump Resuscitation Status: CPR: Attempt Resuscitation Time spent 35 mins Unruly Whitehead MD Oct 12, 2016 11:00
--- NOTE | 2016-10-12 11:37 | DRSVH ---
PROCEDURE: X-RAY CHEST, TWO VIEWS ([id number]) INDICATIONS: TV endocarditis/possible septic emboli TECHNIQUE: 2 views of the chest were acquired. COMPARISON: [facility], CR, XR CHEST 1VW (PORTABLE), 10/01/2016, 14:48. FINDINGS: Surgical changes and devices: Right PICC present projected over the mid to lower SVC. Lungs and pleura: Mid right lung and basilar air space opacity increased from prior examination. Lef t lung clear. No pneumothorax. Mediastinum: Mediastinal contours are normal. Heart size is normal. Bones and chest wall: No suspicious bony abnormalities. Soft tissues appear unremarkable. IMPRESSION: Increasing mid right lung and basilar air space opacity suggestive of aspiration or pneum onia and there is a trace right pleural effusion. Dictated by: Bridger Trejo [facility] Interpreted: Korina Mantilla MD on 10/12/2016 at 10:28 Approved by: Korina Mantilla MD, PhD on 10/12/2016 at 11:35
--- NOTE | 2016-10-12 12:59 | NUR ---
[facility] [place] Swing Bed Referral: Refaxed referral to Gogo at [facility], Adeola Randle is on vacation and she did not get my original referral. 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
[2016-10-12] MEDS: HYDROcodone-APAP 5-325 mg Tablet PO PRN (13:37)
--- NOTE | 2016-10-12 13:57 | CONS ---
[address] [address] CONSULTATION REPORT PATIENT: ORLIN BLACKMON : 1985 MR#: [id number] ADMIT: 10/01/2016 JOB ID: [id number] DATE OF SERVICE: 10/12/2016 INFECTIOUS DISEASE CONSULTATION: I thank Dr. Barr for this timely consultation. 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 HISTORY OF PRESENT ILLNESS: The patient is a 31-year-old gentleman who moved to the [facility] from [place] with his parents when he was 12 years old. He has lived in [facility] ever since and attended [employer]. Recently he and his girlfriend have fallen into the habit of relatively frequent injection drug use and they inject both heroin and methamphetamine. 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 This was not associated with any significant pulmonary, GI or symptoms. He did have some mild headache with photophobia with this but no stiff neck. No nausea, vomiting dysuria, cough, shortness of breath or other focal symptom. Eventually, he sought evaluation and was admitted here on October 01 for suspicion of endocarditis. I was on vacation when he was admitted but I was called because it was reported that his girlfriend had HIV. I recommended they get not only HIV antibodies but also HIV quantitative viral loads. The patient now tells me that was all a mistake in translation and really his girlfriend has hep C and they share needles so he was concerned that he also had hep C. He tells me that his girlfriend does not have HIV. PAST MEDICAL HISTORY: 1. History of polysubstance abuse dating back to his mid teens and currently including IV methamphetamine and heroin as well as some crack cocaine. 2. Cigarette smoking. 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 He lives with his girlfriend and she has two children as well though they are not his kids. He is a cigarette smoker who as mentioned injects heroin and meth and has also used cocaine and other drugs in the past. He does not drink any alcohol. FAMILY HISTORY: Negative for tuberculosis in first-degree relatives. REVIEW OF SYSTEMS: Was done. The patient did have a significant headache when he was first admitted. That is gone now. He also reports some mild photophobia which has resolved. No stiff neck. No sores in the mouth or trouble swallowing. No significant cough and no pleuritic chest pain. No nausea, vomiting or diarrhea at this point. No dysuria, urgency or frequency. No skin rashes noted and no focal site of infection in his arms or legs. Remainder of the review of systems is negative. PHYSICAL EXAMINATION: Reveals an afebrile young gentleman, in no acute distress. Temperature 37 degrees. He was as high as 39.4 degrees when he first came in the hospital and over three or four days he defervesced. He has now been afebrile for almost a full week. His current temp 37, pulse 60, respiratory rate 20, blood pressure 122/65. He is saturating well on room air. Examination of the head reveals no trauma. The patient's mental status is entirely normal. He is very appropriate and speaks quite good Malay. His eyes without conjunctivitis or scleral icterus. His oral cavity is notable for two very small incisor upper teeth. Otherwise his teeth are in reasonable repair and he does not have evidence of gingivitis, hairy leukoplakia or thrush. His neck is supple. His lungs are essentially clear posteriorly. Cardiac tones regular rate and rhythm without demonstrable murmur. No peripheral stigmata of endocarditis are noted on the hands. The abdomen is soft and nontender without organomegaly. No ascites is noted. Does not have a Braga catheter. No suprapubic fullness is noted. No back tenderness noted. No skin rash of any kind although he does have needle tracks primarily in the lower extremities but these do not appear grossly infected in any single location. Neurologically, the patient is very intact. He moves around the room without any difficulty. He has good strength in his arms and legs. No evidence of synovitis. No tenderness over any bony protuberances and no skin rash of any kind. LABORATORIES: Include white count which was as high as 22,000 early in his hospital stay. It is now down to 10,800. His hematocrit is only 25. Platelet count 450. Sed rate 76. Creatinine 0.89. CRP 1.6 now. It was a high as 2.6 earlier. Procalcitonin negative, was as high as 16. It is now down to less than 0.1, which is functionally 0. Urinalysis without white cells. Cryptococcal antibody was checked and I do not know why it was negative. Hepatitis B serologies negative. Hepatitis C positive with a hepatitis C viral load of 2-1/2 million. This is genotype IA on the hepatitis C. HIV antibody and PCR negative. Micro studies include positive blood cultures for MSSA which was noted on the , the , the and finally 1/4 blood cultures from the , which is also positive. Blood cultures done the remain negative. IMAGING: I personally reviewed and the patient's chest x-ray is abnormal and has changes in the right mid lung which the radiologist have opined could be consistent with aspiration, but I am inclined to think these are more likely septic pulmonary emboli. Note that a chest x-ray on the was negative and the chest x-ray done this morning revealed the focal infiltrates. Echocardiogram has been done early in the hospital stay on October 02 and it shows a moderately sized tricuspid valve vegetation. The other heart valves appear benign. IMPRESSION: This is an unfortunate young man who has apparently been abusing drugs by a variety of routes for 15 years or so dating back to his mid teens. He now clearly has an MSSA tricuspid valve endocarditis and I suspect he has septic pulmonary emboli, though the chest x-ray is rather indistinct. What is concerning here is that his blood cultures are staying positive. He has had many, many positive blood cultures between October 01 and October 08 despite appropriate antibiotics. This raises the possibility of perhaps another intravascular focus of infection or perhaps his tricuspid valve endocarditis was worse than we understand possibly involving ring abscess or some other process. Against this more grim possibility, the patient looks quite well overall, and I suspect that we are on the road to clearing his blood cultures and a successful treatment outcome. This will be a very long course of therapy. RECOMMENDATIONS: 1. CT scan of the chest without contrast will be ordered to better delineate what are probably septic pulmonary emboli. 2. Serial blood cultures must be done until they are consistently negative. 3. I agree with the cefazolin therapy at a maximal dose of 2 g IV q.8. I think we are looking at continuing that therapy through early November and probably around November 19 would be a reasonable day to conclude such therapy. I have inserted that stop date for planning purposes. 4. The patient has a PICC line in place and I am not exactly certain when it was placed but certainly given the fact that he is still bacteremic as of the , we have to be concerned that that line may be infected and closely watch him going forward. At this point, I would continue to use the IV, however. 5. The patient is quite anemic without explanation. I suspect this is related to his endocarditis and/or the antibiotics provided for that treatment but will need to closely watch that as well. Thank you very much for this interesting consultation.
--- NOTE | 2016-10-12 14:26 | NUR ---
NUTRITION ASSESSMENT: ASSESS: 31 YO male admitted for fevers, myalgias, and tricuspid value endocarditis. Pt with polysubstance abuse for about 15 years per notes.. Pt with good po intake. PMHx: IV drug use heroin and methamphetamine abuse. LABS: Reviewed. Alb 2.3. MEDS: Reviewed. GI: BM x 1 (10/11) CURRENT WT: 71.5 kg. DIET: General. EST. NEEDS: 3882-3744 kcals (25-30 kcals/kg BW), 70-110 g protein (1.0-1.5 g/kg BW) NUTRITION DIAGNOSIS: 1.) No nutritional diagnosis at this time. NUTRITION INTERVENTION: 1.) No nutritional intervention at this time. MONITOR / EVAL: PO intake, labs, nutritional status. Follow per low nutritional risk guidelines.
--- NOTE | 2016-10-12 15:13 | NUR ---
pain/ambulation Continuous education provided re risk of clots/pneumonia in hospitalized pts. Pt states to have understood severity still hesitant with being compliant. Primary RN ambulated with pt and PRN PO meds given for back pain. Will continue to monitor.
--- NOTE | 2016-10-12 16:31 | DRSVH ---
PROCEDURE: CT CHEST WITHOUT CONTRAST ([id number]) INDICATIONS: ? septic emboli?IVDU with tricuspid endocarditis TECHNIQUE: Noncontrast 5 mm thick sections acquired from the pulmonary apices to the posterior costophrenic angl es. 7 mm thick coronal and sagittal MIP reformats were then acquired. For radiation dose reduction, the following was used: automated exposure control, adjustment of mA and/or kV according to patient size. COMPARISON: None. FINDINGS: Image quality: Excellent. Lungs and pleura: Small right pleural effusion with adjacent atelectasis. There is right basilar cons olidation with developing cavitary appearance, image 37 series 3. There is trace left pleural fluid. There are multiple bilateral cavitary lesions with surrounding nicholas undglass attenuation. Additional solid-appearing nodules, for example measuring 2 cm on image 38 seri es 3 in the right lung are present. No pneumothorax. Central airways appear grossly patent. Mediastinum: Heart size is normal. No pericardial effusion. No mediastinal adenopathy by size crit eria. Thoracic aorta and central pulmonary arteries are normal in size. Esophagus is normal in jamil damion. No hiatal hernia. Bones and chest wall: No suspicious bony lesions. No vertebral body compression fractures. No axil madisyn or supraclavicular adenopathy by size criteria. Thyroid gland negative. Abdomen: Visualized upper abdominal solid organs and bowel loops appear normal in the absence of con trast. IMPRESSION: Multiple bilateral cavitary lesions with surrounding ground glass attenuation likely reflecting septi c emboli in this patient with given clinical history of endocarditis. Small right pleural effusion and adjacent atelectasis/consolidation, with developing cavitary appeara nce raising the possibility of pneumonia. Please correlate clinically. Additional scattered solid-appearing nodules most likely early septic emboli although recommend follo wup with CT in 1-2 months after the patient's acute episode has resolved to document resolution and e xclude malignant/metastatic possibilities. Dictated by: Jules Moss M.D. on 10/12/2016 at 16:24 Approved by: Jules Moss M.D. on 10/12/2016 at 16:29
[2016-10-13] VITALS (7 sets, daily range): BP systolic 111–127; BP diastolic 61–77; PULSE 57–66; RESP 14–18; O2SAT 98–99
[2016-10-13] MEDS: Heparin 5,000 Unit/mL Inj SUBQ SCH ×3 (00:07→16:34)
[2016-10-13] MEDS: CeFAZolin 2 Gm/50 mL D5W IV Premix IV SCH ×3 (00:07→16:34)
[2016-10-13 05:41] LABS: BASOPHILS % (AUTO) 0.5 % (0-3); EOSINOPHILS % (AUTO) 0.5 % (0-5); MONOCYTES % (AUTO) 6.1 % (4-12); Mean Corpuscular Hemoglobin 26.8 pg (27.0-35.0); Mean Corpuscular Volume 85.6 fL (81-100); Platelet Count 426 bil/L (150-400)
--- NOTE | 2016-10-13 09:35 | PROG NOTE ---
[address] [address] PROGRESS NOTE PATIENT: ORLIN BLACKMON : 1985 MR#: [id number] ADMIT: 10/01/2016 JOB ID: [id number] DATE: 10/13/2016 REASON FOR FOLLOWUP: Bacteremic endocarditis. INTERVAL HISTORY: Overnight, the patient says he has felt very well. He denies fevers, chills, or sweats. No sore throat. No significant cough and specifically no pleuritic chest pain. No GI symptoms noted. PHYSICAL EXAMINATION: Reveals an afebrile gentleman, temperature 36.6, pulse 58, respiratory rate 18, blood pressure 115/72. He is saturating well on room air and appears to be in no distress. Examination of the mental status normal. Oral cavity benign. Lungs quite clear bilaterally. Cardiac tones without significant murmur. Abdomen negative. LABORATORIES: White count which has finally normalized at 9500. Creatinine today 1.01. LFTs are normal. Hep C was positive as was noted with very high viral load and genotype 1a. Micro studies include the positive blood cultures on the , the , and the . The blood cultures from the are negative. IMAGING: Yesterday includes a chest CT that I ordered. It shows multiple bilateral cavitary lesions with ground-glass attenuation likely reflecting septic emboli. I reviewed this CT and agree with this finding. There is also the possibility of developing pneumonia, but I suspect this is related to this septic emboli. IMPRESSION: A young gentleman who has been abusing intravenous drugs for 15 years or so. He now has methicillin sensitive Staphylococcus aureus tricuspid valve endocarditis with multiple pulmonary emboli. His blood cultures seemed to finally turning negative only to require close followup to make sure the situation stays that way. RECOMMENDATIONS: 1. Will continue with Ancef 2 g IV q.8. 2. Will continue to watch his PICC line. It was placed around the time his blood cultures turned negative so hopefully it will not become a nidus of infection. 3. Will also need to closely watch his anemia going forward.
--- NOTE | 2016-10-13 11:55 | PCM.PNMED ---
Subjective Date of Service Oct 13, 2016 Subjective Patient seen and examined. No changes. Feels good, vitals stable. Exam Vital Signs Vital Sign - Last Date Time Temp Pulse Resp B/P Pulse Ox O2 Delivery O2 Flow Rate FiO2 10/13/16 11:03 64 10/13/16 09:59 36.7 18 111/61 99 Room Air Intake and Output 10/12/16 10/12/16 10/13/16 Cumulative From/Thru 15:00 23:00 07:00 10/01/16 12:57 - 10/13/16 06:16 Intake Total 1208 ml 680 ml 03167 ml Output Total 77189 ml Balance 1208 ml 680 ml 77636 ml Intake Oral 1208 ml 300 ml 82256 ml IV Total 380 ml 37581 ml Output Urine Total 5850 ml Stool Total 1850 ml Urine/Stool Mix 2202 ml Emesis 400 ml # Voids 4 1 30 # Bowel Movements 3 12 Exam General: The patient is in no distress lying supine in bed. He is in good spirits and very cooperative. His mother is visiting at bedside.lesions, there is no thrush, there is no pharyngitis. The patient's dentition is extremely poor. Oral mucosa is pale. Neck: Is supple, there are no nodes, or masses or tenderness. Chest: Is significant for rales at the right base. There are no wheezes, rhonchi or rubs. Heart: Rate, rhythm is regular. There is a grade 2/6 systolic ejection murmur heard best left sternal border. There is no rub or gallop. Abdomen: Good bowel sounds are present. Abdomen is soft, nontender, no organomegaly or masses were appreciated. Extremities: Are symmetrical and well perfused. There is no edema, there is no cellulitis, no rash. Neurologic: There are no focal neurological deficits. Cranial nerves II through XII are intact. There are no sensory or motor deficits. Psychiatric: Patients mood is calm and he shows no sign of agitation. Lab and Diagnostics Result Diagram: 10/13/1651410/13/16514 Microbiology The repeat blood cultures from 10/08/2016 are again positive for a gram- positive cocci. Name: ORLIN BLACKMON Age/Sex: 31/M Attend Dr: Jerome Moya MD Acct: [id number] Unit: [id number] Status: ADM IN Location: [facility] 2026-03 Re10/01/16 Disch: Specimen: [id number] Collected: 10/03/16 Status: COMP Req#: [id number] Received: 10/03/16-1015 Source: BLOOD Sp Desc : SHARONDA Carter Dr: Sri Rivero DO Ordered: Comments: Collected by Nurse/Unit? Y/N N Procedure Result Verified Site Microbiology MISSY CULTURE BLOOD Final 10/06/16-07 Organism 1 STAPHYLOCOCCUS AUREUS GRAM STAIN RESULT GRAM POSITIVE COCCI ?STAPH BC BOTTLE Isolated from Single Aerobic Bottle Drawn DATE CALLED: 10/04/16 TIME CALLED: 336 CALLED BY: CARA FLOOR/DOCTOR: ISRAEL LARIOS READ BACK YES TYPE OF DRAW PERIPHERAL DRAW TIME OF POSITIVITY 0320 GRAM STAIN RESULT GRAM POSITIVE COCCI ?STAPH BC BOTTLE2 Isolated from Anaerobic Bottle of Set Drawn DATE CALLED: 10/04/16 TIME CALLED: 337 CALLED BY: CARA FLOOR/DOCTOR: ISRAEL LARIOS READ BACK YES TYPE OF DRAW PERIPHERAL DRAW TIME OF POSITIVITY 0320 Oxacillin Susceptible Penicillin Resistant Staph spp. are Susceptible to Penicillin stable penicillins, Blactam/Blactamase inhibitor combinations, antistaphyloccal cephems, and carbapenems. ISOLATED FROM TWO OF THREE BOTTLES COLLECTED 10/03 1. STAPHYLOCOCCUS AUREUS M.I.C Interp --------- ------ * CEFAZOLIN S * CLINDAMYCIN <=0.25 S * ERYTHROMYCIN 0.5 S * LINEZOLID 2 S * MOXIFLOXACIN <=0.25 S CONTINUED ON NEXT PAGE RUN DATE: 10/06/16 [facility] LIVE PAGE 2 RUN TIME: 700 Specimen Inquiry PHYSICIAN Patient: ORLIN BLACKMON [id number] (Continued) Specimen: [id number] Collected: 10/03/16-944 Received: 10/03/16-1016 (Continued) Procedure Result Verified Site MISSY CULTURE BLOOD Final (continued) 10/06/16-700 1. STAPHYLOCOCCUS AUREUS (continued) Uli Interp --------- ------ * OXACILLIN MISSY 0.5 S * RIFAMPIN <=0.5 S * TETRACYCLINE <=1 S * TRIMETHOPRIM/SULFAMETHOXAZOLE <=10 S * VANCOMYCIN 1 S Name: ORLIN BLACKMON Age/Sex: 31/M Attend Dr: Liang Barr Acct: [id number] Unit: [id number] Status: ADM IN [place] [facility] [place] 3022-1 Re10/01/16 Disch: Specimen: [id number] Collected: 10/06/16 Status: RES Req#: [id number] Received: 10/06/16 Source: BLOOD Sp Desc : AER Subm Dr: LEDY RODAS DO Ordered: Comments: Collected by Nurse/Unit? Y/N N Procedure Result Verified Site Microbiology MISSY CULTURE BLOOD Preliminary 10/07/16-1705 Organism 1 POSITIVE BLOOD CULTURE GRAM STAIN RESULT GRAM POSITIVE COCCI ?STAPH BC BOTTLE Isolated from Aerobic Bottle of Set Drawn DATE CALLED: 10/07/16 TIME CALLED: 1600 CALLED BY: TORI FLOOR/DOCTOR: ASH/MARINO Melendez READ BACK YES TYPE OF DRAW PERIPHERAL DRAW TIME OF POSITIVITY 1515 X-Rays, CTs and MRIs PROCEDURE: X-RAY CHEST ONE VIEW, PORTABLE ([id number]) INDICATIONS: fever, unknown source TECHNIQUE: One view of the chest was acquired. COMPARISON: None. FINDINGS: Surgical changes and devices: None. Lungs and pleura: No pleural effusions or pneumothorax. Lungs are clear. A nodular density in the right mid lung zone is probably caused by the nipple shadow. Mediastinum: Mediastinal contours appear normal. Heart size is normal. Bones and chest wall: No suspicious bony lesions. Overlying soft tissues appear unremarkable. IMPRESSION: No acute cardiopulmonary disease. Dictated by: Kenya Bush M.D. on 10/01/2016 at 15:10 Approved by: Kenya Bush M.D. on 10/01/2016 at 15:11 Cardiac Echo Impressions Echo Interpretation Summary The study quality was technically excellent. The left ventricle is normal in size. Left ventricular systolic function is normal without focal wall motion abnormalities. Left ventricular ejection fraction is estimated to be 55%. The right ventricle is normal in size, thickness and function. The right ventricular systolic pressure is estimated at 25 mmHg assuming a right atrial pressure of 3 mm Hg. Both atria are normal in size. There is no vegetation seen on the mitral valve, aortic valve, or pulmonic valve. There is a moderate size vegetation or mass on the tricuspid valve. The mass is located on the posterior tricuspid leaflet. There is mild tricuspid regurgitation. The aortic root is normal size. Assessment & Plan The patient is a 31-year-old white male with a 15 year history of IV drug use, primarily heroin, presenting to the hospital for a week of intermittent fevers, myalgias and severe malaise. The patient had noted that his girlfriend, who is in rehabilitation currently, was recently diagnosed as being Hep C positive. ( Not HIV.) The patient was admitted to the hospitalist service for further evaluation and treatment. Acute endocarditis, staph aureus. Present on admission, Active. - Blood culture positive for staph aureus, methicillin sensitive. Repeat blood cultures on 10/06/2016 are positive. Repeat cultures pending final read - Echo shows vegetations on the tricuspid valve as above. - Initially placed on Vancomycin 10/01/16. Started Nafcillin 10/04 after sensitivities resulted. However due to increasing creatinine and concern for possible interstitial nephritis nafcillin was discontinued and Ancef was started. - discontinued Nafcillin IV due to increasing creatinine and concern for possible interstitial nephritis. We have replaced with Ancef 2 g iv every 8 hours and renal function has improved . Continue Ancef - Brief run of [facility] 10/05/16, cardiology called and patient was placed on Amiodarone 400 BID PO. We will continue for now. - Repeat Blood cultures on 10/06/2016 are positive. Repeat cultures on 2016 negative - repeat CXR - suggestive of aspiration pneumonia vs septic emboli , patient is on ancef - CT noted, likely septic emboli - monitor the picc line - ID consult, appreciate recs Anemia, worsening overall since admission. Stabilized - serum iron levels are slightly low. ferrous gluconate by mouth daily - Folate and B12 normal - retic count high - Ferritin normal - anemia likely secondary to hemolysis Hepatitis C, Present on admission, Active. - HCV genotype pending and Quantitative 2,450,000, Hep C abd >11.0. - Defer to outpatient follow up with GI. - HIV negative. Continuous opiate dependence, heroin addiction. Present on admission. Active. Last used 2 weeks ago, low risk for withdrawal syndrome. Methamphetamine abuse syndrome, Present on admission. Active.. - Last use 2 weeks ago. - Follow clinically. Acetaminophen for mild pain when necessary. Bowel regimen Senna and MiraLAX scheduled and PRN. Zofran when necessary for nausea and vomiting. SubQ heparin held for now. SCDs in place. High-risk medications: NONE. Social: Patient is a high risk individual for loss to follow up and concerns that he may not complete treatment if discharged. Patient is full resuscitation. Disposition. Pending swing bed might be feasible for continued IV antibiotics. VTE Mechanical Devices: Venous Foot Pump Resuscitation Status: CPR: Attempt Resuscitation Time spent 35 mins Unruly Whitehead MD Oct 13, 2016 11:55
--- NOTE | 2016-10-13 14:47 | NUR ---
[facility] [place] [facility] REFERR[place]: Faxed referral to [facility] at [facility] unit this is the third time I have faxed, all prior faxes have failed and they can not figure out why.
[2016-10-13] MEDS ORDERED: 0.9% Sodium Chloride 250 ML ONE (16:31)
--- NOTE | 2016-10-13 17:04 | NUR ---
Mood Pt appears a bit down today. When asked, states wants to go home already. Reading material offered. States to not be into movies. Is tired of being sedentary. Ambulated in gardner with RN and some independent. Will continue to monitor.
[2016-10-14] MEDS: CeFAZolin 2 Gm/50 mL D5W IV Premix IV SCH ×3 (02:38→16:44)
[2016-10-14] MEDS: Heparin 5,000 Unit/mL Inj SUBQ SCH ×3 (02:46→16:44)
--- NOTE | 2016-10-14 04:05 | NUR ---
activity Pt had girlfriend to visit, security called to get girlfriends purse out of locked closet. No noted issues. Pt watched tv for the evening and then slept the rest of the night. Pt was pleasant and cooperative. IV antibiotics given with no noted side effects, will continue to monitor.
[2016-10-14 04:48] VITALS: BP 104/61; PULSE 62; RESP 16; O2SAT 98
[2016-10-14 05:38] LABS: BASOPHILS % (AUTO) 0.5 % (0-3); EOSINOPHILS % (AUTO) 0.6 % (0-5); Mean Corpuscular Hemoglobin 27.3 pg (27.0-35.0); Mean Corpuscular Volume 85.7 fL (81-100); NEUTROPHILS % (AUTO) 74.4 % (40-74); Platelet Count 435 bil/L (150-400)
--- NOTE | 2016-10-14 11:11 | NUR ---
[facility] UPDATE : Patient is medically ready and has been accepted by [facility]ing Bed Unit, [facility] is starting authorization now for [facility]. This is something that can take up [address] [facility] next bed opening is Tue10/20/16 Updated LABEL PRINTER
--- NOTE | 2016-10-14 11:32 | NUR ---
Social Work- continued d/c planning: Data:EMR reviewed. Pt is on day 13 of hospitalization for sepsis per H&P. Pt is medically stable, but requires long course of IV abx. Referral made to [facility] bed unit. [facility] working on authorization from insurance. Pt has declined any CD resources. SW will continue to follow. Assessment:Pt who will need rehabilitation liaison IV abx. Plan:Referral has been made to [facility] Swing Bed pending insurance authorization. Pt has declined any CD resources. SW will continue to follow. RAZ Luna
[2016-10-14 11:38] VITALS: BP 114/65; PULSE 65; RESP 17; O2SAT 99
--- NOTE | 2016-10-14 13:10 | PCM.PNMED ---
Subjective Date of Service Oct 14, 2016 Subjective Patient seen and examined. Doing good. Vitals stable. Exam Vital Signs Vital Sign - Last Date Time Temp Pulse Resp B/P Pulse Ox O2 Delivery O2 Flow Rate FiO2 10/14/16 11:38 36.8 65 17 114/65 99 Room Air Intake and Output 10/13/16 10/13/16 10/14/16 Cumulative From/Thru 15:00 23:00 07:00 10/01/16 12:57 - 10/14/16 06:21 Intake Total 1398 ml 200 ml 59186 ml Output Total 69713 ml Balance 1398 ml 200 ml 43172 ml Intake Oral 1175 ml 200 ml 79599 ml IV Total 223 ml 80930 ml Output Urine Total 5850 ml Stool Total 1850 ml Urine/Stool Mix 2202 ml Emesis 400 ml # Voids 3 1 34 # Bowel Movements 2 14 Exam General: The patient is in no distress lying supine in bed. He is in good spirits and very cooperative. His mother is visiting at bedside.lesions, there is no thrush, there is no pharyngitis. The patient's dentition is extremely poor. Oral mucosa is pale. Chest: Is significant for rales at the right base. There are no wheezes, rhonchi or rubs. Heart: Rate, rhythm is regular. There is a grade 2/6 systolic ejection murmur heard best left sternal border. There is no rub or gallop. Abdomen: Good bowel sounds are present. Abdomen is soft, nontender, no organomegaly or masses were appreciated. Extremities: Are symmetrical and well perfused. There is no edema, there is no cellulitis, no rash. Lab and Diagnostics Result Diagram: 10/14/16 0530 10/14/16 0530 Microbiology The repeat blood cultures from 10/08/2016 are again positive for a gram- positive cocci. Name: ORLIN BLACKMON Age/Sex: 31/M Attend Dr: Jerome Moya MD Acct: [id number] Unit: [id number] Status: ADM IN Location: [facility] 2026-03 Re10/01/16 Disch: Specimen: [id number] Collected: 10/03/16 Status: SHANNAN Valiente#: [id number] Received: 10/03/16 Source: BLOOD Sp Desc : SHARONDA Carter Dr: Sri Rviero DO Ordered: Comments: Collected by Nurse/Unit? Y/N N Procedure Result Verified Site Microbiology MISSY CULTURE BLOOD Final 10/06/16-0701 Organism 1 STAPHYLOCOCCUS AUREUS GRAM STAIN RESULT GRAM POSITIVE COCCI ?STAPH BC BOTTLE Isolated from Single Aerobic Bottle Drawn DATE CALLED: 10/04/16 TIME CALLED: 336 CALLED BY: CARA FLOOR/DOCTOR: ISRAEL LARIOS READ BACK YES TYPE OF DRAW PERIPHERAL DRAW TIME OF POSITIVITY 0320 GRAM STAIN RESULT GRAM POSITIVE COCCI ?STAPH BC BOTTLE2 Isolated from Anaerobic Bottle of Set Drawn DATE CALLED: 10/04/16 TIME CALLED: 337 CALLED BY: CARA FLOOR/DOCTOR: ISRAEL LAIROS READ BACK YES TYPE OF DRAW PERIPHERAL DRAW TIME OF POSITIVITY 0320 Oxacillin Susceptible Penicillin Resistant Staph spp. are Susceptible to Penicillin stable penicillins, Blactam/Blactamase inhibitor combinations, antistaphyloccal cephems, and carbapenems. ISOLATED FROM TWO OF THREE BOTTLES COLLECTED 10/03 1. STAPHYLOCOCCUS AUREUS M.I.C Interp --------- ------ * CEFAZOLIN S * CLINDAMYCIN <=0.25 S * ERYTHROMYCIN 0.5 S * LINEZOLID 2 S * MOXIFLOXACIN <=0.25 S CONTINUED ON NEXT PAGE RUN DATE: 10/06/16 [facility] LIVE PAGE 2 RUN TIME: 700 Specimen Inquiry PHYSICIAN Patient: ORLIN BLACKMON [id number] (Continued) Specimen: [id number] Collected: 10/03/16-944 Received: 10/03/16-1016 (Continued) Procedure Result Verified Site MISSY CULTURE BLOOD Final (continued) 10/06/16-700 1. STAPHYLOCOCCUS AUREUS (continued) Ramirez.IDavidC Interp --------- ------ * OXACILLIN MISSY 0.5 S * RIFAMPIN <=0.5 S * TETRACYCLINE <=1 S * TRIMETHOPRIM/SULFAMETHOXAZOLE <=10 S * VANCOMYCIN 1 S Name: LORIN BLACKMONKSANDR Age/Sex: 31/M Attend Dr: Liang Barr Acct: [id number] Unit: [id number] Status: ADM IN [place] [facility] [place] 3022-1 Re10/01/16 Disch: Specimen: [id number] Collected: 10/06/16 Status: RES Req#: [id number] Received: 10/06/16 Source: BLOOD Sp Desc : AER Subm Dr: LEDY RODAS DO Ordered: BC Comments: Collected by Nurse/Unit? Y/N N Procedure Result Verified Site Microbiology MISSY CULTURE BLOOD Preliminary 10/07/16-1706 Organism 1 POSITIVE BLOOD CULTURE GRAM STAIN RESULT GRAM POSITIVE COCCI ?STAPH BC BOTTLE Isolated from Aerobic Bottle of Set Drawn DATE CALLED: 10/07/16 TIME CALLED: 1600 CALLED BY: TORI FLOOR/DOCTOR: ASH/MARINO LARIOS READ BACK YES TYPE OF DRAW PERIPHERAL DRAW TIME OF POSITIVITY 1515 X-Rays, CTs and MRIs PROCEDURE: X-RAY CHEST ONE VIEW, PORTABLE ([id number]) INDICATIONS: fever, unknown source TECHNIQUE: One view of the chest was acquired. COMPARISON: None. FINDINGS: Surgical changes and devices: None. Lungs and pleura: No pleural effusions or pneumothorax. Lungs are clear. A nodular density in the right mid lung zone is probably caused by the nipple shadow. Mediastinum: Mediastinal contours appear normal. Heart size is normal. Bones and chest wall: No suspicious bony lesions. Overlying soft tissues appear unremarkable. IMPRESSION: No acute cardiopulmonary disease. Dictated by: Kenya Bush M.D. on 10/01/2016 at 15:10 Approved by: Kenya Bush M.D. on 10/01/2016 at 15:11 Cardiac Echo Impressions Echo Interpretation Summary The study quality was technically excellent. The left ventricle is normal in size. Left ventricular systolic function is normal without focal wall motion abnormalities. Left ventricular ejection fraction is estimated to be 55%. The right ventricle is normal in size, thickness and function. The right ventricular systolic pressure is estimated at 25 mmHg assuming a right atrial pressure of 3 mm Hg. Both atria are normal in size. There is no vegetation seen on the mitral valve, aortic valve, or pulmonic valve. There is a moderate size vegetation or mass on the tricuspid valve. The mass is located on the posterior tricuspid leaflet. There is mild tricuspid regurgitation. The aortic root is normal size. Assessment & Plan The patient is a 31-year-old white male with a 15 year history of IV drug use, primarily heroin, presenting to the hospital for a week of intermittent fevers, myalgias and severe malaise. The patient had noted that his girlfriend, who is in rehabilitation currently, was recently diagnosed as being Hep C positive. ( Not HIV.) The patient was admitted to the hospitalist service for further evaluation and treatment. Acute endocarditis, staph aureus. Present on admission, Active. - Blood culture positive for staph aureus, methicillin sensitive. Repeat blood cultures on 10/06/2016 are positive. Repeat cultures pending final read - Echo shows vegetations on the tricuspid valve as above. - Initially placed on Vancomycin 10/01/16. Started Nafcillin 10/04 after sensitivities resulted. However due to increasing creatinine and concern for possible interstitial nephritis nafcillin was discontinued and Ancef was started. - discontinued Nafcillin IV due to increasing creatinine and concern for possible interstitial nephritis. We have replaced with Ancef 2 g iv every 8 hours and renal function has improved . Continue Ancef - Brief run of [facility] 10/05/16, cardiology called and patient was placed on Amiodarone 400 BID PO. We will continue for now. - Repeat Blood cultures on 10/06/2016 are positive. Repeat cultures on 2016 negative - repeat CXR - suggestive of aspiration pneumonia vs septic emboli , patient is on ancef - CT noted, likely septic emboli - monitor the picc line - ID consult, appreciate recs Anemia, worsening overall since admission. Stabilized - serum iron levels are slightly low. ferrous gluconate by mouth daily - Folate and B12 normal - retic count high - Ferritin normal - anemia likely secondary to hemolysis Hepatitis C, Present on admission, Active. - HCV genotype pending and Quantitative 2,450,000, Hep C abd >11.0. - Defer to outpatient follow up with GI. - HIV negative. Continuous opiate dependence, heroin addiction. Present on admission. Active. Last used 2 weeks ago, low risk for withdrawal syndrome. Methamphetamine abuse syndrome, Present on admission. Active.. - Last use 2 weeks before admission. - Follow clinically. Acetaminophen for mild pain when necessary. Bowel regimen Senna and MiraLAX scheduled and PRN. Zofran when necessary for nausea and vomiting. DVT prophylaxis. Ambulating. SCDs in place. High-risk medications: NONE. Social: Patient is a high risk individual for loss to follow up and concerns that he may not complete treatment if discharged. Patient is full resuscitation. Disposition. Pending swing bed might be feasible for continued IV antibiotics. VTE Mechanical Devices: Venous Foot Pump Resuscitation Status: CPR: Attempt Resuscitation Time spent 35 mins Unruly Whitehead MD Oct 14, 2016 13:10
[2016-10-14 17:53] VITALS: BP 127/63; PULSE 62; RESP 16; O2SAT 98
[2016-10-14 20:13] VITALS: BP 119/69; PULSE 68; RESP 16; O2SAT 96
--- NOTE | 2016-10-14 20:18 | PROG NOTE ---
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 INTERVAL HISTORY: The patient reports he feels great. He denies fevers, chills, sweats, cough, pleuritic chest pain, any kind of chest pain, nausea, vomiting, or diarrhea. No problems with the PICC line or the antibiotics. PHYSICAL EXAMINATION: Reveals an afebrile gentleman, temperature 36.5, pulse 62, respiratory rate 16, blood pressure 127/63, saturating well on room air. He is in no acute distress. His oral cavity is benign. His lungs are quite clear posteriorly, except for a very few crackles at the right base. Cardiac tones regular rate and rhythm without murmur. Abdomen benign. No skin rash. LABORATORIES: Include today white count 8600. He continues to be quite anemic without a good explanation. His hematocrit is 25, his MCV 85, his platelet count is 435. Creatinine 0.99. LFTs normal. Serologic studies include of course the positive high viral load, hep C type 1A infection. His blood cultures from the , the , and the were positive for MSSA. Followup blood cultures on the remain negative. No new imaging is available. 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 His blood cultures are now staying negative and he seems to be much improved. RECOMMENDATIONS: 1. Will continue with Ancef. 2. Will continue to watch his followup blood cultures. Thank you very much.
[2016-10-15] MEDS: CeFAZolin 2 Gm/50 mL D5W IV Premix IV SCH ×3 (00:14→16:39)
[2016-10-15] MEDS: Heparin 5,000 Unit/mL Inj SUBQ SCH ×3 (00:16→16:39)
[2016-10-15 05:21] VITALS: BP 109/69; PULSE 59; RESP 16; O2SAT 96
[2016-10-15] MEDS ORDERED: 0.9% Sodium Chloride 250 ML ONE (09:37)
[2016-10-15 09:43] VITALS: BP 123/69; PULSE 63; RESP 14; O2SAT 100
--- NOTE | 2016-10-15 10:27 | PCM.PNMED ---
Subjective Date of Service Oct 15, 2016 Subjective Patient seen and examined. He is doing good . No complaints. Vitals stable. Exam Vital Signs Vital Sign - Last Date Time Temp Pulse Resp B/P Pulse Ox O2 Delivery O2 Flow Rate FiO2 10/15/16 09:43 36.8 63 14 123/69 100 Room Air Intake and Output 10/14/16 10/14/16 10/15/16 Cumulative From/Thru 15:00 23:00 07:00 10/01/16 12:57 - 10/15/16 06:52 Intake Total 908 ml 761 ml 28979 ml Output Total 23230 ml Balance 908 ml 761 ml 17394 ml Intake Oral 908 ml 400 ml 60070 ml IV Total 361 ml 41846 ml Output Urine Total 5850 ml Stool Total 1850 ml Urine/Stool Mix 2202 ml Emesis 400 ml # Voids 3 2 39 # Bowel Movements 1 15 Exam General: The patient is in no distress lying supine in bed. He is in good spirits and very cooperative. His mother is visiting at bedside.lesions, there is no thrush, there is no pharyngitis. The patient's dentition is extremely poor. Oral mucosa is pale. Chest: Is significant for rales at the right base. There are no wheezes, rhonchi or rubs. Heart: Rate, rhythm is regular. There is a grade 2/6 systolic ejection murmur heard best left sternal border. There is no rub or gallop. Abdomen: Good bowel sounds are present. Abdomen is soft, nontender, no organomegaly or masses were appreciated. Extremities: Are symmetrical and well perfused. There is no edema, there is no cellulitis, no rash. Lab and Diagnostics Result Diagram: 10/14/1630 10/14/1630 Microbiology The repeat blood cultures from 10/08/2016 are again positive for a gram- positive cocci. Name: ORLIN BLACKMON Age/Sex: 31/M Attend Dr: Jerome Moya MD Acct: [id number] Unit: [id number] Status: ADM IN Location: [facility] 2026-03 Re10/01/16 Disch: Specimen: [id number] Collected: 10/03/16 Status: SHANNAN Valiente#: [id number] Received: 10/03/16 Source: BLOOD Sp Desc : SHARONDA Carter Dr: Sri Rivero DO Ordered: Comments: Collected by Nurse/Unit? Y/N N Procedure Result Verified Site Microbiology MISSY CULTURE BLOOD Final 10/06/16-07 Organism 1 STAPHYLOCOCCUS AUREUS GRAM STAIN RESULT GRAM POSITIVE COCCI ?STAPH BC BOTTLE Isolated from Single Aerobic Bottle Drawn DATE CALLED: 10/04/16 TIME CALLED: 336 CALLED BY: CARA FLOOR/DOCTOR: ISRAEL LARIOS READ BACK YES TYPE OF DRAW PERIPHERAL DRAW TIME OF POSITIVITY 0320 GRAM STAIN RESULT GRAM POSITIVE COCCI ?STAPH BC BOTTLE2 Isolated from Anaerobic Bottle of Set Drawn DATE CALLED: 10/04/16 TIME CALLED: 337 CALLED BY: CARA FLOOR/DOCTOR: ISRAEL LARIOS READ BACK YES TYPE OF DRAW PERIPHERAL DRAW TIME OF POSITIVITY 0320 Oxacillin Susceptible Penicillin Resistant Staph spp. are Susceptible to Penicillin stable penicillins, Blactam/Blactamase inhibitor combinations, antistaphyloccal cephems, and carbapenems. ISOLATED FROM TWO OF THREE BOTTLES COLLECTED 10/03 1. STAPHYLOCOCCUS AUREUS M.I.C Interp --------- ------ * CEFAZOLIN S * CLINDAMYCIN <=0.25 S * ERYTHROMYCIN 0.5 S * LINEZOLID 2 S * MOXIFLOXACIN <=0.25 S CONTINUED ON NEXT PAGE RUN DATE: 10/06/16 [facility] LIVE PAGE 2 RUN TIME: 700 Specimen Inquiry PHYSICIAN Patient: ORLIN BLACKMON [id number] (Continued) Specimen: [id number] Collected: 10/03/16-944 Received: 10/03/16-1016 (Continued) Procedure Result Verified Site MISSY CULTURE BLOOD Final (continued) 10/06/16-700 1. STAPHYLOCOCCUS AUREUS (continued) M.IDavidC Interp --------- ------ * OXACILLIN MISSY 0.5 S * RIFAMPIN <=0.5 S * TETRACYCLINE <=1 S * TRIMETHOPRIM/SULFAMETHOXAZOLE <=10 S * VANCOMYCIN 1 S Name: NEYMARORLIN Age/Sex: 31/M Attend Dr: Liang Barr Acct: [id number] Unit: [id number] Status: ADM IN Location: [facility] [place] 3022-1 Re10/01/16 Disch: Specimen: [id number] Collected: 10/06/16 Status: RES Req#: [id number] Received: 10/06/16 Source: BLOOD Sp Desc : AER Subm Dr: LEDY RODAS DO Ordered: Comments: Collected by Nurse/Unit? Y/N N Procedure Result Verified Site Microbiology MISSY CULTURE BLOOD Preliminary 10/07/16-1706 Organism 1 POSITIVE BLOOD CULTURE GRAM STAIN RESULT GRAM POSITIVE COCCI ?STAPH BC BOTTLE Isolated from Aerobic Bottle of Set Drawn DATE CALLED: 10/07/16 TIME CALLED: 1600 CALLED BY: TORI FLOOR/DOCTOR: ASH/MARINO Melendez READ BACK YES TYPE OF DRAW PERIPHERAL DRAW TIME OF POSITIVITY 1515 X-Rays, CTs and MRIs PROCEDURE: X-RAY CHEST ONE VIEW, PORTABLE ([id number]) INDICATIONS: fever, unknown source TECHNIQUE: One view of the chest was acquired. COMPARISON: None. FINDINGS: Surgical changes and devices: None. Lungs and pleura: No pleural effusions or pneumothorax. Lungs are clear. A nodular density in the right mid lung zone is probably caused by the nipple shadow. Mediastinum: Mediastinal contours appear normal. Heart size is normal. Bones and chest wall: No suspicious bony lesions. Overlying soft tissues appear unremarkable. IMPRESSION: No acute cardiopulmonary disease. Dictated by: Kenya Bush M.D. on 10/01/2016 at 15:10 Approved by: Kenya Bush M.D. on 10/01/2016 at 15:11 Cardiac Echo Impressions Echo Interpretation Summary The study quality was technically excellent. The left ventricle is normal in size. Left ventricular systolic function is normal without focal wall motion abnormalities. Left ventricular ejection fraction is estimated to be 55%. The right ventricle is normal in size, thickness and function. The right ventricular systolic pressure is estimated at 25 mmHg assuming a right atrial pressure of 3 mm Hg. Both atria are normal in size. There is no vegetation seen on the mitral valve, aortic valve, or pulmonic valve. There is a moderate size vegetation or mass on the tricuspid valve. The mass is located on the posterior tricuspid leaflet. There is mild tricuspid regurgitation. The aortic root is normal size. Assessment & Plan The patient is a 31-year-old white male with a 15 year history of IV drug use, primarily heroin, presenting to the hospital for a week of intermittent fevers, myalgias and severe malaise. The patient had noted that his girlfriend, who is in rehabilitation currently, was recently diagnosed as being Hep C positive. ( Not HIV.) The patient was admitted to the hospitalist service for further evaluation and treatment. Acute endocarditis, staph aureus. Present on admission, Active. - Blood culture positive for staph aureus, methicillin sensitive. Repeat blood cultures on 10/06/2016 are positive. Repeat cultures pending final read - Echo shows vegetations on the tricuspid valve as above. - Initially placed on Vancomycin 10/01/16. Started Nafcillin 10/04 after sensitivities resulted. However due to increasing creatinine and concern for possible interstitial nephritis nafcillin was discontinued and Ancef was started. - discontinued Nafcillin IV due to increasing creatinine and concern for possible interstitial nephritis. We have replaced with Ancef 2 g iv every 8 hours and renal function has improved . Continue Ancef - Brief run of VTach 10/05/16, cardiology called and patient was placed on Amiodarone 400 BID PO. We will continue for now. Needs outpatient follow up with cardiology - Repeat Blood cultures on 10/06/2016 are positive. Repeat cultures on 2016 negative - repeat CXR - suggestive of aspiration pneumonia vs septic emboli , patient is on ancef - CT noted, likely septic emboli - monitor the picc line - ID consult, appreciate recs Anemia, worsening overall since admission. Stabilized - serum iron levels are slightly low. ferrous gluconate by mouth daily - Folate and B12 normal - retic count high - Ferritin normal - anemia likely secondary to hemolysis Hepatitis C, Present on admission, Active. - HCV genotype pending and Quantitative 2,450,000, Hep C abd >11.0. - Defer to outpatient follow up with GI. - HIV negative. Continuous opiate dependence, heroin addiction. Present on admission. Active. Last used 2 weeks ago, low risk for withdrawal syndrome. Methamphetamine abuse syndrome, Present on admission. Active.. - Last use 2 weeks before admission. - Follow clinically. Acetaminophen for mild pain when necessary. Bowel regimen Senna and MiraLAX scheduled and PRN. Zofran when necessary for nausea and vomiting. DVT prophylaxis. Ambulating. SCDs in place. High-risk medications: NONE. Social: Patient is a high risk individual for loss to follow up and concerns that he may not complete treatment if discharged. Patient is full resuscitation. Disposition. Pending swing bed might be feasible for continued IV antibiotics through november 19.. VTE Mechanical Devices: Venous Foot Pump Resuscitation Status: CPR: Attempt Resuscitation Time spent 35 mins Unruly Whitehead MD Oct 15, 2016 10:27
[2016-10-15 16:45] VITALS: BP 101/59; PULSE 61; RESP 14; O2SAT 99
[2016-10-15 21:55] VITALS: BP 110/62; PULSE 50; RESP 16; O2SAT 99
[2016-10-16] MEDS: CeFAZolin 2 Gm/50 mL D5W IV Premix IV SCH ×3 (00:46→17:05)
[2016-10-16] MEDS: Heparin 5,000 Unit/mL Inj SUBQ SCH ×3 (00:48→17:02)
[2016-10-16 05:44] LABS: BASOPHILS % (AUTO) 0.7 % (0-3); MONOCYTES % (AUTO) 5.8 % (4-12); Mean Corpuscular Hemoglobin 27.3 pg (27.0-35.0); Mean Corpuscular Volume 86.2 fL (81-100); NEUTROPHILS % (AUTO) 67.8 % (40-74); Platelet Count 418 bil/L (150-400)
[2016-10-16 05:52] VITALS: BP 107/64; PULSE 55; RESP 16; O2SAT 99
--- NOTE | 2016-10-16 08:32 | PCM.PNMED ---
Subjective Date of Service Oct 16, 2016 Subjective No problems overnight per patient or nurse.I introduced myself. Tolerating all medications. Exam Vital Signs Vital Sign - Last Date Time Temp Pulse Resp B/P Pulse Ox O2 Delivery O2 Flow Rate FiO2 10/16/16 05:52 36.5 55 16 107/64 99 Room Air Intake and Output 10/15/16 10/15/16 10/16/16 Cumulative From/Thru 15:00 23:00 07:00 10/01/16 12:57 - 10/16/16 06:45 Intake Total 300 ml 334 ml 95833 ml Output Total 25947 ml Balance 300 ml 334 ml 39712 ml Intake Oral 300 ml 73639 ml IV Total 334 ml 92301 ml Output Urine Total 5850 ml Stool Total 1850 ml Urine/Stool Mix 2202 ml Emesis 400 ml # Voids 4 43 # Bowel Movements 2 17 Exam HENT; good hydration no lesions CV; no murmur Resp; clear anterioraly GI; soft, non acute, non tender Neuro 2-12 intact, no focal neuro deficits Lab and Diagnostics Result Diagram: 10/16/1630 10/16/16 0530 Microbiology The repeat blood cultures from 10/08/2016 are again positive for a gram- positive cocci. Name: ORLIN BLACKMON Age/Sex: 31/M Attend Dr: Jerome Moya MD Acct: [id number] Unit: [id number] Status: ADM IN Location: [facility] 2026-03 Re10/01/16 Disch: Specimen: [id number] Collected: 10/03/16 Status: COMP Req#: [id number] Received: 10/03/16 Source: BLOOD Sp Desc : AA Raul Dr: Sri Rivero DO Ordered: HARRIET Comments: Collected by Nurse/Unit? Y/N N Procedure Result Verified Site Microbiology MISSY CULTURE BLOOD Final 10/06/16-700 Organism 1 STAPHYLOCOCCUS AUREUS GRAM STAIN RESULT GRAM POSITIVE COCCI ?STAPH BC BOTTLE Isolated from Single Aerobic Bottle Drawn DATE CALLED: 10/04/16 TIME CALLED: 033 CALLED BY: CARA FLOOR/DOCTOR: ISRAEL LARIOS READ BACK YES TYPE OF DRAW PERIPHERAL DRAW TIME OF POSITIVITY 0320 GRAM STAIN RESULT GRAM POSITIVE COCCI ?STAPH BC BOTTLE2 Isolated from Anaerobic Bottle of Set Drawn DATE CALLED: 10/04/16 TIME CALLED: 033 CALLED BY: CARA FLOOR/DOCTOR: ISRAEL LARIOS READ BACK YES TYPE OF DRAW PERIPHERAL DRAW TIME OF POSITIVITY 0320 Oxacillin Susceptible Penicillin Resistant Staph spp. are Susceptible to Penicillin stable penicillins, Blactam/Blactamase inhibitor combinations, antistaphyloccal cephems, and carbapenems. ISOLATED FROM TWO OF THREE BOTTLES COLLECTED 10/03 1. STAPHYLOCOCCUS AUREUS M.I.C Interp --------- ------ * CEFAZOLIN S * CLINDAMYCIN <=0.25 S * ERYTHROMYCIN 0.5 S * LINEZOLID 2 S * MOXIFLOXACIN <=0.25 S CONTINUED ON NEXT PAGE RUN DATE: 10/06/16 [facility] LIVE PAGE 2 RUN TIME: 700 Specimen Inquiry PHYSICIAN Patient: ORLIN BLACKMON [id number] (Continued) Specimen: [id number] Collected: 10/03/16 Received: 10/03/16-1016 (Continued) Procedure Result Verified Site MISSY CULTURE BLOOD Final (continued) 10/06/16-0701 1. STAPHYLOCOCCUS AUREUS (continued) M.I.C Interp --------- ------ * OXACILLIN MISSY 0.5 S * RIFAMPIN <=0.5 S * TETRACYCLINE <=1 S * TRIMETHOPRIM/SULFAMETHOXAZOLE <=10 S * VANCOMYCIN 1 S Name: ORLIN BLACKMON Age/Sex: 31/M Attend Dr: Liang Barr Acct: [id number] Unit: [id number] Status: ADM IN [place] [facility] [place]22-1 Re10/01/16 Disch: Specimen: [id number] Collected: 10/06/16 Status: RES Req#: [id number] Received: 10/06/16 Source: BLOOD Sp Desc : AER Subm Dr: LEDY RODAS DO Ordered: BC Comments: Collected by Nurse/Unit? Y/N N Procedure Result Verified Site Microbiology MISSY CULTURE BLOOD Preliminary 10/07/16-1706 Organism 1 POSITIVE BLOOD CULTURE GRAM STAIN RESULT GRAM POSITIVE COCCI ?STAPH BC BOTTLE Isolated from Aerobic Bottle of Set Drawn DATE CALLED: 10/07/16 TIME CALLED: 1600 CALLED BY: TORI JONAS/DOCTOR: ASH/MARINO LARIOS READ BACK YES TYPE OF DRAW PERIPHERAL DRAW TIME OF POSITIVITY 1515 X-Rays, CTs and MRIs PROCEDURE: X-RAY CHEST ONE VIEW, PORTABLE ([id number]) INDICATIONS: fever, unknown source TECHNIQUE: One view of the chest was acquired. COMPARISON: None. FINDINGS: Surgical changes and devices: None. Lungs and pleura: No pleural effusions or pneumothorax. Lungs are clear. A nodular density in the right mid lung zone is probably caused by the nipple shadow. Mediastinum: Mediastinal contours appear normal. Heart size is normal. Bones and chest wall: No suspicious bony lesions. Overlying soft tissues appear unremarkable. IMPRESSION: No acute cardiopulmonary disease. Dictated by: Kenya Bush M.D. on 10/01/2016 at 15:10 Approved by: Kenya Bush M.D. on 10/01/2016 at 15:11 Cardiac Echo Impressions Echo Interpretation Summary The study quality was technically excellent. The left ventricle is normal in size. Left ventricular systolic function is normal without focal wall motion abnormalities. Left ventricular ejection fraction is estimated to be 55%. The right ventricle is normal in size, thickness and function. The right ventricular systolic pressure is estimated at 25 mmHg assuming a right atrial pressure of 3 mm Hg. Both atria are normal in size. There is no vegetation seen on the mitral valve, aortic valve, or pulmonic valve. There is a moderate size vegetation or mass on the tricuspid valve. The mass is located on the posterior tricuspid leaflet. There is mild tricuspid regurgitation. The aortic root is normal size. Assessment & Plan The patient is a 31-year-old white male with a 15 year history of IV drug use, primarily heroin, presenting to the hospital for a week of intermittent fevers, myalgias and severe malaise. The patient had noted that his girlfriend, who is in rehabilitation currently, was recently diagnosed as being Hep C positive. ( Not HIV.) The patient was admitted to the hospitalist service for further evaluation and treatment. Acute endocarditis, staph aureus. Present on admission, Active. - Blood culture positive for staph aureus, methicillin sensitive. Last positive blood culture 10/08/16 - Echo shows vegetations on the tricuspid valve as above. - Initially placed on Vancomycin 10/01/16, then Nafcillin IV, but due to increasing creatinine and concern for possible interstitial nephritis, replaced with Ancef 2 g iv every 8 hours and renal function has improved . Continue Ancef thru 10/19/16 tentative - CT noted, likely septic emboli, follow up imaging after treatment to document complete resolution of pulmonary opacities - monitor the picc line - ID consult, appreciate recs -Brief run of VTach, resolved -10/05/16, cardiology called and patient was placed on Amiodarone 400 BID PO. We will continue for now. Needs outpatient follow up with cardiology Anemia, worsening overall since admission. Stabilized - serum iron levels are slightly low. ferrous gluconate by mouth daily - Folate and B12 normal - retic count high - Ferritin normal - anemia likely secondary to hemolysis Hepatitis C, Present on admission, Active. - HCV genotype pending and Quantitative 2,450,000, Hep C abd >11.0. - Defer to outpatient follow up with GI. - HIV negative. Continuous opiate dependence, heroin addiction. Present on admission. Active. Last used 2 weeks ago, low risk for withdrawal syndrome. Methamphetamine abuse syndrome, Present on admission. Active.. - Last use 2 weeks before admission. - Follow clinically. Acetaminophen for mild pain when necessary. Bowel regimen Senna and MiraLAX scheduled and PRN. Zofran when necessary for nausea and vomiting. DVT prophylaxis. Ambulating. SCDs in place. High-risk medications: NONE. Social: Patient is a high risk individual for loss to follow up and concerns that he may not complete treatment if discharged. Patient is full resuscitation. Disposition. Pending swing bed might be feasible for continued IV antibiotics through november 19.. VTE Mechanical Devices: Venous Foot Pump Resuscitation Status: CPR: Attempt Resuscitation Yolanda Stevens MD Oct 16, 2016 08:31
[2016-10-16 14:55] VITALS: BP 102/71; PULSE 65; RESP 16; O2SAT 100
--- NOTE | 2016-10-16 19:11 | NUR ---
Mentation Alert and orientedX3. Denies pain or discomfort. Steady on feet. Recieved IV ABO as ordered.
[2016-10-17] MEDS: CeFAZolin 2 Gm/50 mL D5W IV Premix IV SCH ×3 (00:02→16:30)
[2016-10-17] MEDS: Heparin 5,000 Unit/mL Inj SUBQ SCH ×3 (00:02→16:31)
[2016-10-17 00:06] VITALS: BP 99/53; PULSE 57; RESP 14; O2SAT 99
--- NOTE | 2016-10-17 01:49 | NUR ---
Mentation Compliant with all care, pleasant and reporting no c/o pain/N/V.
[2016-10-17] MEDS ORDERED: 0.9% Sodium Chloride 250 ML ONE (05:50)
--- NOTE | 2016-10-17 08:30 | PCM.PNMED ---
Subjective Date of Service Oct 17, 2016 Subjective Doing well. Ambulating about the floor, behavior is very good, patient ciro cooperative with nursing staff. No new problems noted, no fever. Exam Vital Signs Vital Sign - Last Date Time Temp Pulse Resp B/P Pulse Ox O2 Delivery O2 Flow Rate FiO2 10/17/16 00:06 36.5 57 14 99/53 99 Room Air Intake and Output 10/16/16 10/16/16 10/17/16 Cumulative From/Thru 15:00 23:00 07:00 10/01/16 12:57 - 10/16/16 18:32 Intake Total 225 ml 1080 ml 20418 ml Output Total 73096 ml Balance 225 ml 1080 ml 01872 ml Intake Oral 225 ml 880 ml 65100 ml IV Total 200 ml 37272 ml Output Urine Total 5850 ml Stool Total 1850 ml Urine/Stool Mix 2202 ml Emesis 400 ml # Voids 2 2 47 # Bowel Movements 17 Exam Skin; no rash noted, warm dry CV; no obvious murmur Resp; clear anteriorly GI; soft non acute benign Extre; no edema Lab and Diagnostics Result Diagram: 10/16/16 0530 10/16/16 0530 Microbiology The repeat blood cultures from 10/08/2016 are again positive for a gram- positive cocci. Name: ORLIN BLACKMON Age/Sex: 31/M Attend Dr: Jerome Moya MD Acct: [id number] Unit: [id number] Status: ADM IN Location: [facility] 2026-03 Re10/01/16 Disch: Specimen: [id number] Collected: 10/03/16 Status: COMP Req#: [id number] Received: 10/03/16 Source: BLOOD Sp Desc : AA Subm Dr: Sri Rivero DO Ordered: HARRIET Comments: Collected by Nurse/Unit? Y/N N Procedure Result Verified Site Microbiology MISSY CULTURE BLOOD Final 10/06/16-700 Organism 1 STAPHYLOCOCCUS AUREUS GRAM STAIN RESULT GRAM POSITIVE COCCI ?STAPH BC BOTTLE Isolated from Single Aerobic Bottle Drawn DATE CALLED: 10/04/16 TIME CALLED: 033 CALLED BY: CARA FLOOR/DOCTOR: ISRAEL LARIOS READ BACK YES TYPE OF DRAW PERIPHERAL DRAW TIME OF POSITIVITY 0320 GRAM STAIN RESULT GRAM POSITIVE COCCI ?STAPH BC BOTTLE2 Isolated from Anaerobic Bottle of Set Drawn DATE CALLED: 10/04/16 TIME CALLED: 033 CALLED BY: CARA FLOOR/DOCTOR: ISRAEL LARIOS READ BACK YES TYPE OF DRAW PERIPHERAL DRAW TIME OF POSITIVITY 0320 Oxacillin Susceptible Penicillin Resistant Staph spp. are Susceptible to Penicillin stable penicillins, Blactam/Blactamase inhibitor combinations, antistaphyloccal cephems, and carbapenems. ISOLATED FROM TWO OF THREE BOTTLES COLLECTED 10/03 1. STAPHYLOCOCCUS AUREUS M.I.C Interp --------- ------ * CEFAZOLIN S * CLINDAMYCIN <=0.25 S * ERYTHROMYCIN 0.5 S * LINEZOLID 2 S * MOXIFLOXACIN <=0.25 S CONTINUED ON NEXT PAGE RUN DATE: 10/06/16 [facility] LIVE PAGE 2 RUN TIME: 700 Specimen Inquiry PHYSICIAN Patient: ORLIN BLACKMON [id number] (Continued) Specimen: [id number] Collected: 10/03/16 Received: 10/03/16-1016 (Continued) Procedure Result Verified Site MISSY CULTURE BLOOD Final (continued) 10/06/16-07 1. STAPHYLOCOCCUS AUREUS (continued) Uli Turk --------- ------ * OXACILLIN MISSY 0.5 S * RIFAMPIN <=0.5 S * TETRACYCLINE <=1 S * TRIMETHOPRIM/SULFAMETHOXAZOLE <=10 S * VANCOMYCIN 1 S Name: ORLIN BLACKMON Age/Sex: 31/M Attend Dr: Liang Barr Acct: [id number] Unit: [id number] Status: ADM IN Location: [facility] 3022-1 Re10/01/16 Disch: Specimen: [id number] Collected: 10/06/16 Status: RES Req#: [id number] Received: 10/06/16 Source: BLOOD Sp Desc : AER Subm Dr: LEDY RODAS DO Ordered: BC Comments: Collected by Nurse/Unit? Y/N N Procedure Result Verified Site Microbiology MISSY CULTURE BLOOD Preliminary 10/07/16-1706 Organism 1 POSITIVE BLOOD CULTURE GRAM STAIN RESULT GRAM POSITIVE COCCI ?STAPH BC BOTTLE Isolated from Aerobic Bottle of Set Drawn DATE CALLED: 10/07/16 TIME CALLED: 1600 CALLED BY: TORI JONAS/DOCTOR: ASH/MARINO LARIOS READ BACK YES TYPE OF DRAW PERIPHERAL DRAW TIME OF POSITIVITY 1515 X-Rays, CTs and MRIs PROCEDURE: X-RAY CHEST ONE VIEW, PORTABLE ([id number]) INDICATIONS: fever, unknown source TECHNIQUE: One view of the chest was acquired. COMPARISON: None. FINDINGS: Surgical changes and devices: None. Lungs and pleura: No pleural effusions or pneumothorax. Lungs are clear. A nodular density in the right mid lung zone is probably caused by the nipple shadow. Mediastinum: Mediastinal contours appear normal. Heart size is normal. Bones and chest wall: No suspicious bony lesions. Overlying soft tissues appear unremarkable. IMPRESSION: No acute cardiopulmonary disease. Dictated by: Kenya Bush M.D. on 10/01/2016 at 15:10 Approved by: Kenya Bush M.D. on 10/01/2016 at 15:11 Cardiac Echo Impressions Echo Interpretation Summary The study quality was technically excellent. The left ventricle is normal in size. Left ventricular systolic function is normal without focal wall motion abnormalities. Left ventricular ejection fraction is estimated to be 55%. The right ventricle is normal in size, thickness and function. The right ventricular systolic pressure is estimated at 25 mmHg assuming a right atrial pressure of 3 mm Hg. Both atria are normal in size. There is no vegetation seen on the mitral valve, aortic valve, or pulmonic valve. There is a moderate size vegetation or mass on the tricuspid valve. The mass is located on the posterior tricuspid leaflet. There is mild tricuspid regurgitation. The aortic root is normal size. Assessment & Plan The patient is a 31-year-old white male with a 15 year history of IV drug use, primarily heroin, presenting to the hospital for a week of intermittent fevers, myalgias and severe malaise. The patient had noted that his girlfriend, who is in rehabilitation currently, was recently diagnosed as being Hep C positive. ( Not HIV.) The patient was admitted to the hospitalist service for further evaluation and treatment. Acute endocarditis, staph aureus. Present on admission, Active. - Blood culture positive for staph aureus, methicillin sensitive. Last positive blood culture 10/08/16 - Echo shows vegetations on the tricuspid valve as above. - Initially placed on Vancomycin 10/01/16, then Nafcillin IV, but due to increasing creatinine and concern for possible interstitial nephritis, replaced with Ancef 2 g iv every 8 hours and renal function has improved . Continue Ancef thru 11/19/16 tentative - CT noted, likely septic emboli, follow up imaging after treatment to document complete resolution of pulmonary opacities - monitor the picc line -Brief run of VTach, resolved -10/05/16, cardiology called and patient was placed on Amiodarone 400 BID PO. We will continue for now. -Needs outpatient follow up with cardiology Anemia, worsening overall since admission. resolved - serum iron levels are slightly low. ferrous gluconate by mouth daily - Folate and B12 normal - retic count high - Ferritin normal - anemia likely secondary to endocarditis and chronic illness Hepatitis C, Present on admission, stable. - HCV genotype pending and Quantitative 2,450,000, Hep C abd >11.0. - Defer to outpatient follow up with GI. - HIV negative. Continuous opiate dependence, heroin addiction. Present on admission. stable. Last used 2 weeks ago, low risk for withdrawal syndrome. Methamphetamine abuse syndrome, Present on admission. stable.. - Last use 2 weeks before admission. - Follow clinically. Acetaminophen for mild pain when necessary. Bowel regimen Senna and MiraLAX scheduled and PRN. Zofran when necessary for nausea and vomiting. DVT prophylaxis. Ambulating. SCDs in place. High-risk medications: NONE. Social: Patient is a high risk individual for loss to follow up and concerns that he may not complete treatment if discharged. Patient is full resuscitation. Disposition. Pending swing bed might be feasible for continued IV antibiotics through november 19.. VTE Mechanical Devices: Venous Foot Pump Resuscitation Status: CPR: Attempt Resuscitation Yolanda Stevens MD Oct 17, 2016 08:30
[2016-10-17 09:36] VITALS: BP 122/70; PULSE 62; RESP 16; O2SAT 99
--- NOTE | 2016-10-17 12:13 | NUR ---
Mentation Alert, oriented, and compliant with all cares. Denies any pain or discomfort. Recieved all PO medications and iV ABO as ordered. No adverse effects noted with use of IV ABO. stable mood. Continue to monitor. Stable Vital signs.
[2016-10-17 17:19] VITALS: BP 118/65; PULSE 65; RESP 16; O2SAT 98
--- NOTE | 2016-10-17 17:40 | NUR ---
Social Work- Continued d/c planning: Data:EMR reviewed. Pt is on day 16 of hospitalization for sepsis per H&P. Pt is medically stable, but requires long course of IV abx. Referral made to [facility] Swing bed unit. [facility] working on authorization from insurance. Pt has declined any CD resources. SW to contact [facility] tomorrow during business hours, as insurance auths are not often obtained over the weekend. Acceptance could be as late as Tuesday. SW will continue to follow. Assessment:Pt who will need termite helper IV abx through November 20. Plan: [facility] working on authorization from insurance. Acceptance could be as late as Tuesday. SW will continue to follow. RAZ Staton
[2016-10-17 20:27] VITALS: BP 119/67; PULSE 75; RESP 16; O2SAT 98
[2016-10-18] MEDS: Heparin 5,000 Unit/mL Inj SUBQ SCH ×3 (01:08→16:27)
[2016-10-18] MEDS: CeFAZolin 2 Gm/50 mL D5W IV Premix IV SCH ×3 (01:08→16:26)
[2016-10-18 05:04] VITALS: BP 115/71; PULSE 64; RESP 16; O2SAT 98
--- NOTE | 2016-10-18 05:39 | NUR ---
Anxious Pt appearing anxious. Is wishing IV abx were completing sooner than current plan. States is tired of being cooped up in 1 room/dept. Pt unwilling to ambulate when PICC running at TKO. PICC stopped to encourage ambulation.
[2016-10-18 06:00] LABS: BASOPHILS % (AUTO) 1.1 % (0-3); EOSINOPHILS % (AUTO) 1.1 % (0-5); MONOCYTES % (AUTO) 6.4 % (4-12); Mean Corpuscular Hemoglobin 27.6 pg (27.0-35.0); Mean Corpuscular Volume 88.3 fL (81-100); Platelet Count 352 bil/L (150-400)
--- NOTE | 2016-10-18 08:55 | PCM.PNMED ---
Subjective Date of Service Oct 18, 2016 Subjective Resting comfortable in bed, no new problems, tolerating medications well. Being cooperative with nursing staff. Exam Vital Signs Vital Sign - Last Date Time Temp Pulse Resp B/P Pulse Ox O2 Delivery O2 Flow Rate FiO2 10/18/16 05:04 36.7 64 16 115/71 98 Room Air Intake and Output 10/17/16 10/17/16 10/18/16 Cumulative From/Thru 15:00 23:00 07:00 10/01/16 12:57 - 10/18/16 05:37 Intake Total 2400 ml 1165 ml 870 ml 66738 ml Output Total 44765 ml Balance 2400 ml 1165 ml 870 ml 09895 ml Intake Oral 2400 ml 872 ml 750 ml 10853 ml IV Total 293 ml 120 ml 61009 ml Output Urine Total 5850 ml Stool Total 1850 ml Urine/Stool Mix 2202 ml Emesis 400 ml # Voids 5 3 2 57 # Bowel Movements 1 0 18 Exam Skin; no rash noted, warm dry CV; no murmur noted, no edema, no JVD Resp; clear anteriorly GI; soft non acute benign Extre; no edema Lab and Diagnostics Result Diagram: 10/18/1651710/18/16517 Microbiology The repeat blood cultures from 10/08/2016 are again positive for a gram- positive cocci. Name: ORLIN BLACKMON Age/Sex: 31/M Attend Dr: Jerome Moya MD Acct: [id number] Unit: [id number] Status: ADM IN Location: [facility] 2026-03 Re10/01/16 Disch: Specimen: [id number] Collected: 10/03/1645 Status: COMP Req#: [id number] Received: 10/03/16 Source: BLOOD Sp Desc : AA Raul Dr: Sri Rivero DO Ordered: BC Comments: Collected by Nurse/Unit? Y/N N Procedure Result Verified Site Microbiology MISSY CULTURE BLOOD Final 10/06/16-700 Organism 1 STAPHYLOCOCCUS AUREUS GRAM STAIN RESULT GRAM POSITIVE COCCI ?STAPH BC BOTTLE Isolated from Single Aerobic Bottle Drawn DATE CALLED: 10/04/16 TIME CALLED: 033 CALLED BY: CARA FLOOR/DOCTOR: ISRAEL Salgado READ BACK YES TYPE OF DRAW PERIPHERAL DRAW TIME OF POSITIVITY 0320 GRAM STAIN RESULT GRAM POSITIVE COCCI ?STAPH BC BOTTLE2 Isolated from Anaerobic Bottle of Set Drawn DATE CALLED: 10/04/16 TIME CALLED: 033 CALLED BY: CARA FLOOR/DOCTOR: ISRAEL Salgado READ BACK YES TYPE OF DRAW PERIPHERAL DRAW TIME OF POSITIVITY 0320 Oxacillin Susceptible Penicillin Resistant Staph spp. are Susceptible to Penicillin stable penicillins, Blactam/Blactamase inhibitor combinations, antistaphyloccal cephems, and carbapenems. ISOLATED FROM TWO OF THREE BOTTLES COLLECTED 10/03 1. STAPHYLOCOCCUS AUREUS M.I.C Interp --------- ------ * CEFAZOLIN S * CLINDAMYCIN <=0.25 S * ERYTHROMYCIN 0.5 S * LINEZOLID 2 S * MOXIFLOXACIN <=0.25 S CONTINUED ON NEXT PAGE RUN DATE: 10/06/[address] [facility] LIVE PAGE 2 RUN TIME: 700 Specimen Inquiry PHYSICIAN Patient: ORLIN BLACKMON [id number] (Continued) Specimen: [id number] Collected: 10/03/16-944 Received: 10/03/16-1016 (Continued) Procedure Result Verified Site MISSY CULTURE BLOOD Final (continued) 10/06/16-700 1. STAPHYLOCOCCUS AUREUS (continued) Uli Interp --------- ------ * OXACILLIN MISSY 0.5 S * RIFAMPIN <=0.5 S * TETRACYCLINE <=1 S * TRIMETHOPRIM/SULFAMETHOXAZOLE <=10 S * VANCOMYCIN 1 S Name: BETZAIDA BLACKMONANDR Age/Sex: 31/M Attend Dr: Liang Barr Acct: [id number] Unit: [id number] Status: ADM IN Location: [facility] 3022-1 Re10/01/16 Disch: Specimen: [id number] Collected: 10/06/16 Status: RES Req#: [id number] Received: 10/06/16 Source: BLOOD Sp Desc : AER Subm Dr: LEDY RODAS DO Ordered: BC Comments: Collected by Nurse/Unit? Y/N N Procedure Result Verified Site Microbiology MISSY CULTURE BLOOD Preliminary 10/07/16-1706 Organism 1 POSITIVE BLOOD CULTURE GRAM STAIN RESULT GRAM POSITIVE COCCI ?STAPH BC BOTTLE Isolated from Aerobic Bottle of Set Drawn DATE CALLED: 10/07/16 TIME CALLED: 1600 CALLED BY: TORI JONAS/DOCTOR: ASH/MARINO LARIOS READ BACK YES TYPE OF DRAW PERIPHERAL DRAW TIME OF POSITIVITY 1515 X-Rays, CTs and MRIs PROCEDURE: X-RAY CHEST ONE VIEW, PORTABLE ([id number]) INDICATIONS: fever, unknown source TECHNIQUE: One view of the chest was acquired. COMPARISON: None. FINDINGS: Surgical changes and devices: None. Lungs and pleura: No pleural effusions or pneumothorax. Lungs are clear. A nodular density in the right mid lung zone is probably caused by the nipple shadow. Mediastinum: Mediastinal contours appear normal. Heart size is normal. Bones and chest wall: No suspicious bony lesions. Overlying soft tissues appear unremarkable. IMPRESSION: No acute cardiopulmonary disease. Dictated by: Kenya Bush M.D. on 10/01/2016 at 15:10 Approved by: Kenya Bush M.D. on 10/01/2016 at 15:11 Cardiac Echo Impressions Echo Interpretation Summary The study quality was technically excellent. The left ventricle is normal in size. Left ventricular systolic function is normal without focal wall motion abnormalities. Left ventricular ejection fraction is estimated to be 55%. The right ventricle is normal in size, thickness and function. The right ventricular systolic pressure is estimated at 25 mmHg assuming a right atrial pressure of 3 mm Hg. Both atria are normal in size. There is no vegetation seen on the mitral valve, aortic valve, or pulmonic valve. There is a moderate size vegetation or mass on the tricuspid valve. The mass is located on the posterior tricuspid leaflet. There is mild tricuspid regurgitation. The aortic root is normal size. Assessment & Plan The patient is a 31-year-old white male with a 15 year history of IV drug use, primarily heroin, presenting to the hospital for a week of intermittent fevers, myalgias and severe malaise. The patient had noted that his girlfriend, who is in rehabilitation currently, was recently diagnosed as being Hep C positive. ( Not HIV.) The patient was admitted to the hospitalist service for further evaluation and treatment. Acute endocarditis, staph aureus. Present on admission, Active. - Blood culture positive for staph aureus, methicillin sensitive. Last positive blood culture 10/08/16 - Echo shows vegetations on the tricuspid valve as above. - Initially placed on Vancomycin 10/01/16, then Nafcillin IV, but due to increasing creatinine and concern for possible interstitial nephritis, replaced with Ancef 2 g iv every 8 hours and renal function has improved . Continue Ancef thru 11/19/16 tentative - CT noted, likely septic emboli, follow up imaging after treatment to document complete resolution of pulmonary opacities - monitor the picc line -Brief run of VTach, resolved -10/05/16, cardiology called and patient was placed on Amiodarone 400 BID PO. We will continue for now. -Needs outpatient follow up with cardiology Anemia, worsening overall since admission. resolved - serum iron levels are slightly low. ferrous gluconate by mouth daily - Folate and B12 normal - retic count high - Ferritin normal - anemia likely secondary to endocarditis and chronic illness Hepatitis C, Present on admission, stable. - HCV genotype pending and Quantitative 2,450,000, Hep C abd >11.0. - Defer to outpatient follow up with GI. - HIV negative. Continuous opiate dependence, heroin addiction. Present on admission. stable. Last used 2 weeks ago, low risk for withdrawal syndrome. Methamphetamine abuse syndrome, Present on admission. stable.. - Last use 2 weeks before admission. - Follow clinically. Acetaminophen for mild pain when necessary. Bowel regimen Senna and MiraLAX scheduled and PRN. Zofran when necessary for nausea and vomiting. DVT prophylaxis. Ambulating. SCDs in place. High-risk medications: NONE. Social: Patient is a high risk individual for loss to follow up and concerns that he may not complete treatment if discharged. Patient is full resuscitation. Disposition. Pending swing bed might be feasible for continued IV antibiotics through november 19.. VTE Mechanical Devices: Venous Foot Pump Resuscitation Status: CPR: Attempt Resuscitation Yolanda Stevens MD Oct 18, 2016 08:55
[2016-10-18 09:23] VITALS: BP 103/63; PULSE 71; RESP 18; O2SAT 99
[2016-10-18 13:29] VITALS: BP 110/67; PULSE 69; RESP 18; O2SAT 100
--- NOTE | 2016-10-18 14:21 | NUR ---
[facility] : Left message for Gogo in [facility], asked her for bed update and if patient has authorization. Updated UR ISRAEL and RAZ Addendum: 10/18/16 at 1435 by GISELLE OROZCO CM Gogo called and confirmed authorization is in place but they now will be full through this week and likely to have 4 discharges next week. She will update us if something comes sooner.
--- NOTE | 2016-10-18 15:06 | NUR ---
Social Work-continued d.c planning: Data:EMR Reviewed. Pt is on day 17 of hospitalization for sepsis per H&P. Pt is medically stable, pt will need to remain on IV abx until 11/20. SW updated by sit that [facility] Bed unit has obtained insurance authorization for pt, but they now will not have a bed until next week. SW will continue to follow. Assessment:Pt who will need IV abx through 11/20. Plan:[facility] has accepted pt and has authorization, but they do not have a bed for pt until next week. SW will continue to follow. RAZ Luna
[2016-10-18 16:48] VITALS: BP 112/66; PULSE 70; RESP 18; O2SAT 98
--- NOTE | 2016-10-18 18:19 | NUR ---
Mentation alert and oriented X3. stable mood. calm and cooperative with all cares. Continuous on IV ABO as ordered. Denies pain or discomfort. patient ambulating in [address] and steady on feet. stable vital signs. Review clinical social work therapist note r/t swing bed follow up. Dr. kemp at bed side. Continue to monitor.
--- NOTE | 2016-10-18 18:38 | PROG NOTE ---
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 INTERVAL HISTORY: Over the weekend, the patient has been stable. No fevers, chills or sweats. No significant pleuritic chest pain, cough, nausea, vomiting or diarrhea. No problem with the PICC line. PHYSICAL EXAMINATION: Reveals an afebrile gentleman in no acute distress. Temp 36.6, pulse 70, respiratory rate 18, blood pressure 112/66. He is saturating well on room air. Examination of the oral cavity unremarkable. Lungs clear. Cardiac tones without murmur. Abdomen benign. Right upper extremity PICC line benign. LABORATORIES: Include white count 7100, normal diff. Creatinine 0.96. Micro studies include negative blood cultures from the . No other significant results. IMPRESSION: This is a young man with methicillin-sensitive Staphylococcus aureus tricuspid valve endocarditis with septic pulmonary emboli. He is doing well at this time. RECOMMENDATIONS: 1. Continue with Ancef through November 19. 2. In view of his active IV drug use, I think he should be kept here or in some sort of supervised medical facility until the complete completion of such therapy. 3. I will continue to see this patient with you about twice a week, and we should check labs once or twice a week including CBC and CMP.
[2016-10-18 20:03] VITALS: BP 121/80; PULSE 77; RESP 18; O2SAT 96
[2016-10-19] MEDS: CeFAZolin 2 Gm/50 mL D5W IV Premix IV SCH ×3 (00:30→17:40)
[2016-10-19] MEDS: Heparin 5,000 Unit/mL Inj SUBQ SCH ×3 (00:30→17:39)
--- NOTE | 2016-10-19 05:16 | NUR ---
Uneventful Night: Pt rested through the night with no complaints of pain or discomfort. Denies cardiac pain, SOB, n/v. Call light within reach, using appropriately. Frequent rounding in place. Bed locked, low position. Pleasant and cooperative with care.
[2016-10-19 05:54] VITALS: BP 105/67; PULSE 58; RESP 18; O2SAT 97
--- NOTE | 2016-10-19 11:15 | NUR ---
NUTRITION FOLLOW-UP: ASSESS: 31 YO male admitted for fevers, myalgias, and tricuspid value endocarditis. Pt with polysubstance abuse for about 15 years per notes. [place] [facility] [place] is available. Pt with good po intake. PMHx: IV drug use heroin and methamphetamine abuse. LABS: Reviewed. MEDS: Reviewed. GI: BM x 1 (10/17) CURRENT WT: 71.5 kg. DIET: General. PO intake 100% most meals. EST. NEEDS: 2993-6611 kcals (25-30 kcals/kg BW), 70-110 g protein (1.0-1.5 g/kg BW) NUTRITION DIAGNOSIS: 1.) No nutritional diagnosis at this time. NUTRITION INTERVENTION: 1.) No nutritional intervention at this time. MONITOR / EVAL: PO intake, labs, nutritional status. Follow per low nutritional risk guidelines.
--- NOTE | 2016-10-19 12:45 | PCM.PNMED ---
Subjective Date of Service Oct 19, 2016 Subjective Patient is feeling better. Exam Vital Signs Vital Sign - Last Date Time Temp Pulse Resp B/P Pulse Ox O2 Delivery O2 Flow Rate FiO2 10/19/16 05:54 36.2 58 18 105/67 97 Room Air Intake and Output 10/18/16 10/18/16 10/19/16 Cumulative From/Thru 15:00 23:00 07:00 10/01/16 12:57 - 10/19/16 05:54 Intake Total 1660 ml 300 ml 37863 ml Output Total 71521 ml Balance 1660 ml 300 ml 78593 ml Intake Oral 1453 ml 300 ml 68748 ml IV Total 207 ml 61152 ml Output Urine Total 5850 ml Stool Total 1850 ml Urine/Stool Mix 2202 ml Emesis 400 ml # Voids 4 4 65 # Bowel Movements 0 0 18 Exam PHYSICAL EXAM: GENERAL: Alert, not in distress, cooperative HEAD: atraumatic, normocephalic, no bruises. EYES: TOMMIE, EOMI, anicteric, able to fully open and close eyelids SKIN: Skin color normal, turgor normal. No visible rashes or lesions. EAR, NOSE, MOUTH, THROAT: Lips, oral mucosa, tongue gums, oropharynx are moist , pink, no lesions. Ears normal appearance, no lesions. NECK: no jugulovenous distention, no carotid bruits, carotid pulse normal contour, No carotid bruit, no enlarged lymph nodes appreciated; supple ROM normal. RESPIRATORY: Lungs clear to auscultation. Good diaphragmatic excursion. Normal percussion sound. CARDIAC: normal S1 and S2; no rubs, murmurs, or gallops; regular rate and rhythm ABDOMEN: Abdomen soft, non-tender. BS normal. No masses or organomegaly. MUSCULOSKELETAL: ROM full, muscles are not tender EXTREMITIES: no pitting edema in LE, no new deformities or skin discoloration. NEURO: Alert, oriented X 3, Sensation grossly intact., Cranial nerves II-XII intact, Grossly normal motor function. PULSES: 2+ radial, 2+ carotid REVIEW OF SYSTEMS: GENERAL: no malaise, no fevers., SEE HPI HEENT: Negative for frequent or significant headaches All other reviewed and negative other than HPI. IVs and Medications Medications Reviewed: Medications were reviewed in detail Lab and Diagnostics Result Diagram: 10/18/1651710/18/16517 Microbiology The repeat blood cultures from 10/08/2016 are again positive for a gram- positive cocci. Name: ORLIN BLACKMON Age/Sex: 31/M Attend Dr: Jerome Moya MD Acct: [id number] Unit: [id number] Status: ADM IN Location: [facility] 2026-03 Re10/01/16 Disch: Specimen: [id number] Collected: 10/03/16 Status: COMP Req#: [id number] Received: 10/03/16 Source: BLOOD Sp Desc : SHARONDA Carter Dr: Sri Rivero DO Ordered: BC Comments: Collected by Nurse/Unit? Y/N N Procedure Result Verified Site Microbiology MISSY CULTURE BLOOD Final 10/06/16-700 Organism 1 STAPHYLOCOCCUS AUREUS GRAM STAIN RESULT GRAM POSITIVE COCCI ?STAPH BC BOTTLE Isolated from Single Aerobic Bottle Drawn DATE CALLED: 10/04/16 TIME CALLED: 336 CALLED BY: CARA FLOOR/DOCTOR: ISRAEL LARIOS READ BACK YES TYPE OF DRAW PERIPHERAL DRAW TIME OF POSITIVITY 0320 GRAM STAIN RESULT GRAM POSITIVE COCCI ?STAPH BC BOTTLE2 Isolated from Anaerobic Bottle of Set Drawn DATE CALLED: 10/04/16 TIME CALLED: 0338 CALLED BY: CARA FLOOR/DOCTOR: ISRAEL LARIOS READ BACK YES TYPE OF DRAW PERIPHERAL DRAW TIME OF POSITIVITY 0320 Oxacillin Susceptible Penicillin Resistant Staph spp. are Susceptible to Penicillin stable penicillins, Blactam/Blactamase inhibitor combinations, antistaphyloccal cephems, and carbapenems. ISOLATED FROM TWO OF THREE BOTTLES COLLECTED 10/03 1. STAPHYLOCOCCUS AUREUS M.I.C Interp --------- ------ * CEFAZOLIN S * CLINDAMYCIN <=0.25 S * ERYTHROMYCIN 0.5 S * LINEZOLID 2 S * MOXIFLOXACIN <=0.25 S CONTINUED ON NEXT PAGE RUN DATE: 10/06/16 [facility] LIVE PAGE 2 RUN TIME: 700 Specimen Inquiry PHYSICIAN Patient: ORLIN BLACKMON [id number] (Continued) Specimen: [id number] Collected: 10/03/16-944 Received: 10/03/16-1016 (Continued) Procedure Result Verified Site MISSY CULTURE BLOOD Final (continued) 10/06/16-700 1. STAPHYLOCOCCUS AUREUS (continued) Uli Interp --------- ------ * OXACILLIN MISSY 0.5 S * RIFAMPIN <=0.5 S * TETRACYCLINE <=1 S * TRIMETHOPRIM/SULFAMETHOXAZOLE <=10 S * VANCOMYCIN 1 S Name: ORLIN BLACKMON Age/Sex: 31/M Attend Dr: Liang Barr Acct: [id number] Unit: [id number] Status: ADM IN Location: [facility] [place] 3022-1 Re10/01/16 Disch: Specimen: [id number] Collected: 10/06/16 Status: RES Req#: [id number] Received: 10/06/16 Source: BLOOD Sp Desc : AER Subm Dr: LEDY RODAS DO Ordered: BC Comments: Collected by Nurse/Unit? Y/N N Procedure Result Verified Site Microbiology MISSY CULTURE BLOOD Preliminary 10/07/16-1705 Organism 1 POSITIVE BLOOD CULTURE GRAM STAIN RESULT GRAM POSITIVE COCCI ?STAPH BC BOTTLE Isolated from Aerobic Bottle of Set Drawn DATE CALLED: 10/07/16 TIME CALLED: 1600 CALLED BY: TORI FLOOR/DOCTOR: ASH/MARINO LARIOS READ BACK YES TYPE OF DRAW PERIPHERAL DRAW TIME OF POSITIVITY 1515 X-Rays, CTs and MRIs PROCEDURE: X-RAY CHEST ONE VIEW, PORTABLE ([id number]) INDICATIONS: fever, unknown source TECHNIQUE: One view of the chest was acquired. COMPARISON: None. FINDINGS: Surgical changes and devices: None. Lungs and pleura: No pleural effusions or pneumothorax. Lungs are clear. A nodular density in the right mid lung zone is probably caused by the nipple shadow. Mediastinum: Mediastinal contours appear normal. Heart size is normal. Bones and chest wall: No suspicious bony lesions. Overlying soft tissues appear unremarkable. IMPRESSION: No acute cardiopulmonary disease. Dictated by: Kenya Bush M.D. on 10/01/2016 at 15:10 Approved by: Kenya Bush M.D. on 10/01/2016 at 15:11 Cardiac Echo Impressions Echo Interpretation Summary The study quality was technically excellent. The left ventricle is normal in size. Left ventricular systolic function is normal without focal wall motion abnormalities. Left ventricular ejection fraction is estimated to be 55%. The right ventricle is normal in size, thickness and function. The right ventricular systolic pressure is estimated at 25 mmHg assuming a right atrial pressure of 3 mm Hg. Both atria are normal in size. There is no vegetation seen on the mitral valve, aortic valve, or pulmonic valve. There is a moderate size vegetation or mass on the tricuspid valve. The mass is located on the posterior tricuspid leaflet. There is mild tricuspid regurgitation. The aortic root is normal size. Assessment & Plan The patient is a 31-year-old white male with a 15 year history of IV drug use, primarily heroin, presenting to the hospital for a week of intermittent fevers, myalgias and severe malaise. The patient had noted that his girlfriend, who is in rehabilitation currently, was recently diagnosed as being Hep C positive. ( Not HIV.) The patient was admitted to the hospitalist service for further evaluation and treatment. Acute endocarditis, staph aureus. Present on admission, Active. - Blood culture positive for staph aureus, methicillin sensitive. Last positive blood culture 10/08/16 - Echo shows vegetations on the tricuspid valve as above. - Initially placed on Vancomycin 10/01/16, then Nafcillin IV, but due to increasing creatinine and concern for possible interstitial nephritis, replaced with Ancef 2 g iv every 8 hours and renal function has improved . Continue Ancef thru 11/19/16 tentative - CT noted, likely septic emboli, follow up imaging after treatment to document complete resolution of pulmonary opacities - monitor the picc line -Brief run of VTach, resolved -10/05/16, cardiology called and patient was placed on Amiodarone 400 BID PO. We will continue for now. -Needs outpatient follow up with cardiology Anemia, worsening overall since admission. resolved - serum iron levels are slightly low. ferrous gluconate by mouth daily - Folate and B12 normal - retic count high - Ferritin normal - anemia likely secondary to endocarditis and chronic illness Hepatitis C, Present on admission, stable. - HCV genotype pending and Quantitative 2,450,000, Hep C abd >11.0. - Defer to outpatient follow up with GI. - HIV negative. Continuous opiate dependence, heroin addiction. Present on admission. stable. Last used 2 weeks ago, low risk for withdrawal syndrome. Methamphetamine abuse syndrome, Present on admission. stable.. - Last use 2 weeks before admission. - Follow clinically. Acetaminophen for mild pain when necessary. Bowel regimen Senna and MiraLAX scheduled and PRN. Zofran when necessary for nausea and vomiting. DVT prophylaxis. Ambulating. SCDs in place. High-risk medications: NONE. Social: Patient is a high risk individual for loss to follow up and concerns that he may not complete treatment if discharged. Patient is full resuscitation. Disposition. Pending swing bed might be feasible for continued IV antibiotics through november 19.. VTE Mechanical Devices: Venous Foot Pump Resuscitation Status: CPR: Attempt Resuscitation Kush Rico MD Oct 19, 2016 12:45
[2016-10-19 13:47] VITALS: BP 108/73; PULSE 62; RESP 18; O2SAT 96
--- NOTE | 2016-10-19 17:52 | NUR ---
Uneventful shift Pt was cooperative with care. Denied any pain. Ambulated hallways X4. Acted appropriately.
[2016-10-19 20:31] VITALS: BP 98/56; PULSE 62; RESP 18; O2SAT 97
[2016-10-20] MEDS: CeFAZolin 2 Gm/50 mL D5W IV Premix IV SCH ×2 (00:28→08:34)
[2016-10-20] MEDS: Heparin 5,000 Unit/mL Inj SUBQ SCH ×2 (00:28→08:34)
[2016-10-20] MEDS ORDERED: 0.9% Sodium Chloride 250 ML ONE (00:30)
[2016-10-20 05:07] VITALS: BP 110/68; PULSE 58; RESP 18; O2SAT 96
[2016-10-20 09:30] VITALS: BP 108/66; PULSE 63; RESP 18; O2SAT 98
--- NOTE | 2016-10-20 10:42 | NUR ---
[facility] : Spoke with Gogo at [facility] and she does have a bed that will be available today after 1400, she is wanting to take this patient since authorization was obtained and is still valid. is the accepting doctor today. Paged to work on orders, they will need Discharge Summary, Discharge Instructions and complete Discharge orders. MD to can be called to [phone] and this is also the # for RN to RN Updated CLOTH HAULER Addendum: 10/20/16 at 1559 by GISELLE OROZCO [facility] will transport patient at 1700 and take him to [facility] Bed [facility] at [facility] We will be paying for this transport. Updated CLOTH HAULER and Admin of transport
--- NOTE | 2016-10-20 12:02 | NUR ---
Social Work-readiness for discharge: Data:EMR Reviewed. Pt is on day 19 of hospitalization for sepsis per H&P. Pt is medically stable, pt will need to remain on IV abx until 11/20. ABRAM updated by specialsit that [facility] Bed unit has obtained insurance authorization for pt and they have a bed. ABRAM has updated MD. ABRAM will continue to follow. Assessment:Pt who will need IV abx through 11/20. Plan:[facility] has accepted pt and has authorization and they have a bed for pt today. MD has been updated. ABRAM will continue to follow. RAZ Luna
[2016-10-20 13:04] VITALS: BP 106/60; PULSE 68; RESP 18; O2SAT 99
[2016-10-20] MEDS ORDERED: AMIO200T PO (13:42)
[2016-10-20] MEDS ORDERED: METO25TA6 PO (13:42)
[2016-10-20] MEDS ORDERED: FERR325T20 PO (13:42)
[2016-10-20] MEDS ORDERED: CEFA2PLA9 IV (13:45)
--- NOTE | 2016-10-20 13:50 | PCM.DIMED ---
Discharge Instructions Date of Service Oct 20, 2016 Dates of Hospitalization Oct 01, 2016 at 17:47 Discharge Diagnosis Discharge Diagnosis Acute Endocarditis of Tricuspidal valve Frequent Non sustained V-tachs Anemia of chronic disease. Medication Instructions Additional med instructions Patient should follow up with INfection disease physician for monitoring of treatment of Acute Endocarditis Patient should follow up with Development Manager regarding his Amiodaron therapy. Diet Discharge Diet: No restrictions, Low fat, Low Sodium, Heart Healthy Activity Discharge Activity: Other (regular activity, avoid heavy physical work or exertion ) Kush Rico MD Oct 20, 2016 13:50
--- NOTE | 2016-10-20 14:00 | PCM.DC.MED ---
Discharge Summary Date of Service Oct 20, 2016 Dates of Hospitalization Date of Hospital Admission Oct 01, 2016 at 17:47 Date of Discharge: Oct 20, 2016 Providers: Admitting Physician: Scotty Spain MD Primary Care Physician: Other,Physician Attending Physician: Kush Rico MD Diagnosis at Time of Discharge Diagnosis at Time of Discharge Acute Endocarditis of Tricuspidal valve Frequent Non sustained V-tachs Anemia of chronic disease Hepatitis C. Consultations Infectious disease MD Procedures XRay, CTs & MRIs PROCEDURE: X-RAY CHEST ONE VIEW, PORTABLE ([id number]) INDICATIONS: fever, unknown source TECHNIQUE: One view of the chest was acquired. COMPARISON: None. FINDINGS: Surgical changes and devices: None. Lungs and pleura: No pleural effusions or pneumothorax. Lungs are clear. A nodular density in the right mid lung zone is probably caused by the nipple shadow. Mediastinum: Mediastinal contours appear normal. Heart size is normal. Bones and chest wall: No suspicious bony lesions. Overlying soft tissues appear unremarkable. IMPRESSION: No acute cardiopulmonary disease. Dictated by: Kenya Bush M.D. on 10/01/2016 at 15:10 Approved by: Kenya Bush M.D. on 10/01/2016 at 15:11 Cardiac Echo Impression Echo Interpretation Summary The study quality was technically excellent. The left ventricle is normal in size. Left ventricular systolic function is normal without focal wall motion abnormalities. Left ventricular ejection fraction is estimated to be 55%. The right ventricle is normal in size, thickness and function. The right ventricular systolic pressure is estimated at 25 mmHg assuming a right atrial pressure of 3 mm Hg. Both atria are normal in size. There is no vegetation seen on the mitral valve, aortic valve, or pulmonic valve. There is a moderate size vegetation or mass on the tricuspid valve. The mass is located on the posterior tricuspid leaflet. There is mild tricuspid regurgitation. The aortic root is normal size. Other Diagnostics Anemia of chronic disease, hepatitis C, frequent nonsustained V. tach Hospital Course Principle Diagnosis: Acute endocarditis with tricuspid valve, frequent, nonsustained V- tachs, hepatitis C Physical exam: Patein was seen and examined on the day of discharge Operations During Hospitalization: none CONSULTATIONS: Infectious disease Hospital Course: The patient is a 31-year-old white male with a 15 year history of IV drug use, primarily heroin, presenting with intermittent fevers, myalgias and severe malaise. Patient was diagnosed with acute endocarditis, blood cultures were positive for MSSA. Patient was also diagnosed with hepatitis C. Infectious disease was consulted and advised to continue treatment until 11/29/2016. While in the hospital patient was having frequent nonsustained runs of V-tach. Cardiology was called and advised amiodarone and metoprolol. Patient was also diagnosed with anemia of chronic disease, while in the hospital he had short course of oral iron. After patient improved he was discharged to SNF with recommendation to follow up with his PCP, ID, Fish Protector for further management of his medical problems. Patient should follow-up with the installment loan collector in the next week or so for further management of his amiodarone and metoprolol therapy. Patient Condition @ Discharge: good Discharge Disposition: SNF Discharge Activity: resume regular activity, patient was advised to avoid heavy physical work or exertion Discharge Diet: regular diet, heart healthy, low fat, low salt, high fiber Information Provided to Patient: information about discharge medications Discharge Medications: I discussed with patient medication dosage, usage, goals of therapy, side effects, alternatives. During discharge patient was allert, oriented, fully competent, able to make own informed decisions. We discussed possible severe side effects, adverse reactions, benefits, risks, alternatives of current and newly prescribed medications and diagnostic procedures. Patient verbalized understanding and agreed to current plan of care and discharge. TIME SPENT IN DISCHARGE ACTIVITY: Face to face activity greater then 30 minutes spent in discharge activity. 1. Discussed with patient re: discharge plan of care/treatment, and follow up care/services. 2. Patient agreed with discharge plan and further plan of care, all questions were answered/addressed, no further questions at the time of discharge. Exam Vital Signs (Last) Date Time Temp Pulse Resp B/P Pulse Ox O2 Delivery O2 Flow Rate FiO2 10/20/16 13:04 36.6 68 18 106/60 99 Room Air Test 10/01/16 15:10 10/01/16 15:32 10/01/16 15:42 10/01/16 19:00 Troponin T < 0.010ug/L (0.0-0.011) Hold Blue Top Tube Received (Received) Cryptococcus Antibody Negative (Neg:<1:2) HIV (1&2) Ag and Ab, 4th Generation Non reactive (Non Reactive) Urine Opiates Screen Positive Urine Methadone Screen Negative Urine Barbiturates Screen Negative Urine Amphetamines Screen Negative Urine Benzodiazepines Screen Negative Urine Cocaine Metabolite Screen Negative Urine Cannabinoids Screen Negative Hepatitis A IgM Antibody Negative (Negative) Hepatitis B Surface Antigen Negative (Negative) Hepatitis B Core IgM Antibody Negative (Negative) Hepatitis C Antibody >11.0s/co ratio Hepatitis C Antibody Comment Comment (.) Test 10/01/16 19:02 10/01/16 20:52 10/03/16 14:10 10/04/16 09:10 Urine Color Dark yellow (YELLOW) Urine Appearance Hazy (CLEAR,HAZY) Urine pH 5.0 (5.0-8.0) Urine Specific [place] 1.010 (1.003-1.035) Urine Protein 30mg/dL (NEG,TRACE) Urine Glucose (UA) Negativemg/dL (NEGATIVE) Urine Ketones Negativemg/dL (NEGATIVE) Urine Occult Blood Small (NEGATIVE) Urine Nitrite Negative (NEGATIVE) Urine Bilirubin Negative (NEGATIVE) Urine Urobilinogen Normalmg/dL (NORMAL) Urine Leukocyte Esterase Negative (NEGATIVE) Urine RBC 0-2/hpf (0-2) Urine WBC 0-5/hpf (0-5) Urine Epithelial Cells Occasional/hpf (NONE-MOD) Urine Crystals Amorphous urates (NONE Urine Bacteria Few/hpf (NONE-FEW) Urine Hyaline Casts None/lpf (NONE) Urine Granular Casts None seen (NONE SEEN) Urine Waxy Casts None seen (NONE SEEN) Urine Red Blood Cell Casts None seen (NONE SEEN) Urine White Blood Cell Casts None seen (NONE SEEN) Urine Mucus None seen (None Seen) Urine Trichomonas None seen (NONE SEEN) Urine Yeast None (NONE SEEN) Urinalysis Comment None Urine Culture Reflexed Not indicated Lactic Acid Level 2.0mmol/L (0.4-2.0) Hepatitis C Virus Quantitation [id number]/mL (.) Hepatitis C RNA (PCR) log10 6.389 (.) Hepatitis C Genotype 1a (.) Hepatitis C Genotype Comment Comment (.) Hepatitis C Comment Comment (.) Vancomycin Level Trough 16.0mcg/mL Test 10/06/16 06:45 10/08/16 17:00 10/10/16 05:50 10/10/16 23:43 HIV-1 RNA (PCR) Commentcopies/mL (.) HIV-1 RNA (PCR) log10 Value (.) Hold Urine Received (Received) Reticulocyte Count,Calculated 3.2% (0.6-2.6) Iron Level 32ug/dL (35-150) Total Iron Binding Capacity 207ug/dL (250-450) Percent Iron Saturation 15%sat (15-50) Unsaturated Iron Binding 175.1ug/dL Ferritin 244ng/mL (30-400) Vitamin B12 Level 1592pg/mL (211-946) Folate 7.2ng/mL (>3.0) Hold [place] Top Tube Received (Received) Test 10/11/16 04:30 10/12/16 05:00 10/18/16 05:18 Erythrocyte Sedimentation Rate 76mm/hr (0-15) C-Reactive Protein 1.6mg/dL (0.0-0.5) Procalcitonin 0.07ng/mL (0.00-0.08) Magnesium Level 2.0mg/dL (1.6-2.6) Total Bilirubin 0.2mg/dL (0.0-1.2) Aspartate Amino Transf (AST/SGOT) 32U/L (0-50) Alanine Aminotransferase (ALT/SGPT) 24U/L (0-44) Alkaline Phosphatase 69U/L (25-150) Total Protein 6.7g/dL (6.4-8.4) Albumin 2.3g/dL (3.4-5.0) White Blood Count 7.1th/mm3 (3.8-10.1) Red Blood Count 3.33mil/mm3 (4.40-5.80) Hemoglobin 9.2g/dL (13.8-17.2) Hematocrit 29.4% (41.0-50.0) Mean Corpuscular Volume 88.3fL (81-100) Mean Corpuscular Hemoglobin 27.6pg (27.0-35.0) Mean Corpuscular Hemoglobin Concent 31.3% (32.0-37.0) Red Cell Distribution Width 18.3% (12.3-15.4) Platelet Count 352bil/L (150-400) Neutrophils (%) (Auto) 66.0% (40-74) Lymphocytes (%) (Auto) 25.0% (14-46) Monocytes (%) (Auto) 6.4% (4-12) Eosinophils (%) (Auto) 1.1% (0-5) Basophils (%) (Auto) 1.1% (0-3) Sodium Level 142mEq/L (134-144) Potassium Level 4.3mEq/L (3.5-5.2) Chloride Level 104mEq/L (97-108) Carbon Dioxide Level 21mmol/L (18-29) Blood Urea Nitrogen 11mg/dL (6-20) Creatinine 0.96mg/dL (0.76-1.27) Estimat Glomerular Filtration Rate 98mL/min (>59) Glucose Level 91mg/dL (60-99) Calcium Level 8.6mg/dL (8.5-10.1) Thyroid Stimulating Hormone (TSH) 4.050uIU/mL (0.450-4.500) Free Thyroxine 1.03ng/dL (0.82-1.77) Microbiology Results The repeat blood cultures from 10/08/2016 are again positive for a gram- positive cocci. Name: ORLIN BLACKMON Age/Sex: 31/M Attend Dr: Jerome Moya MD Acct: [id number] Unit: [id number] Status: ADM IN Location: [facility] 2026-03 Re10/01/16 Disch: Specimen: [id number] Collected: 10/03/16 Status: COMP Req#: [id number] Received: 10/03/16 Source: BLOOD Sp Desc : SHARONDA Carter Dr: Sri Rivero DO Ordered: HARRIET Comments: Collected by Nurse/Unit? Y/N N Procedure Result Verified Site Microbiology MISSY CULTURE BLOOD Final 10/06/16-700 Organism 1 STAPHYLOCOCCUS AUREUS GRAM STAIN RESULT GRAM POSITIVE COCCI ?STAPH BC BOTTLE Isolated from Single Aerobic Bottle Drawn DATE CALLED: 10/04/16 TIME CALLED: 336 CALLED BY: CARA FLOOR/DOCTOR: ISRAEL LARIOS READ BACK YES TYPE OF DRAW PERIPHERAL DRAW TIME OF POSITIVITY 0320 GRAM STAIN RESULT GRAM POSITIVE COCCI ?STAPH BC BOTTLE2 Isolated from Anaerobic Bottle of Set Drawn DATE CALLED: 10/04/16 TIME CALLED: 033 CALLED BY: CARA FLOOR/DOCTOR: ISRAEL LARIOS READ BACK YES TYPE OF DRAW PERIPHERAL DRAW TIME OF POSITIVITY 0320 Oxacillin Susceptible Penicillin Resistant Staph spp. are Susceptible to Penicillin stable penicillins, Blactam/Blactamase inhibitor combinations, antistaphyloccal cephems, and carbapenems. ISOLATED FROM TWO OF THREE BOTTLES COLLECTED 10/03 1. STAPHYLOCOCCUS AUREUS M.I.C Interp --------- ------ * CEFAZOLIN S * CLINDAMYCIN <=0.25 S * ERYTHROMYCIN 0.5 S * LINEZOLID 2 S * MOXIFLOXACIN <=0.25 S CONTINUED ON NEXT PAGE RUN DATE: 10/06/16 [facility] LIVE PAGE 2 RUN TIME: 700 Specimen Inquiry PHYSICIAN Patient: ORLIN BLACKMON [id number] (Continued) Specimen: [id number] Collected: 10/03/16 Received: 10/03/16-1015 (Continued) Procedure Result Verified Site MISSY CULTURE BLOOD Final (continued) 10/06/16-700 1. STAPHYLOCOCCUS AUREUS (continued) M.I.C Interp --------- ------ * OXACILLIN MISSY 0.5 S * RIFAMPIN <=0.5 S * TETRACYCLINE <=1 S * TRIMETHOPRIM/SULFAMETHOXAZOLE <=10 S * VANCOMYCIN 1 S Name: ORLIN BLACKMON Age/Sex: 31/M Attend Dr: Liang Barr Acct: [id number] Unit: [id number] Status: [place] [facility] [place] Re10/01/16 Disch: Specimen: [id number] Collected: 10/06/16 Status: RES Req#: [id number] Received: 10/06/16 Source: BLOOD Sp Desc : AER Subm Dr: LEDY RODAS DO Ordered: BC Comments: Collected by Nurse/Unit? Y/N N Procedure Result Verified Site Microbiology MISSY CULTURE BLOOD Preliminary 10/07/16-1705 Organism 1 POSITIVE BLOOD CULTURE GRAM STAIN RESULT GRAM POSITIVE COCCI ?STAPH BC BOTTLE Isolated from Aerobic Bottle of Set Drawn DATE CALLED: 10/07/16 TIME CALLED: 1600 CALLED BY: TORI JONAS/DOCTOR: ASH/MARINO LARIOS READ BACK YES TYPE OF DRAW PERIPHERAL DRAW TIME OF POSITIVITY 1515 Discharge Medications Discharge Medications Amiodarone (Amiodarone) 200 Mg Tablet 400 MG PO BID Prescribed by: KATHERINE FANG MD Cefazolin Sodium in 0.9 % NaCl (Cefazolin 2 G/100 ml-0.9% NaCl) 2 Gram/100 Ml Plast..bag 2 GM IV every 8 hours Prescribed by: KATHERINE FANG MD Metoprolol Tartrate (Metoprolol Tartrate) 25 Mg Tablet 12.5 MG PO BID Prescribed by: KATHERINE FANG MD Additional med instructions Patient should follow up with INfection disease physician for monitoring of treatment of Acute Endocarditis Patient should follow up with Fish Protector regarding his Amiodaron therapy. Followup Plan Discharge Diet: Low fat, Low Sodium, Heart Healthy Discharge Activity: Other (regular activity, avoid heavy physical work or exertion ) Follow-up with PCP in: 1 week Kush Rico MD Oct 20, 2016 14:00
--- NOTE | 2016-10-20 16:10 | NUR ---
Social Work-discharge: Data:EMR reviewed. Pt is on day 19 of hospitalization for sepsis per H&P. Pt is medically stable for discharge. ABRAM updated by specialist Finn that pt has been accepted at [facility] and they are able to accept pt today. ABRAM faxed discharge information to [facility] [phone] and UR specialist arranged transport for 1700. ABRAM updated pt at bedside regarding discharge and time and he is agreeable to plan.ABRAM provided phone number for MD to call report to and RN to call report to as well. RN,UC,pt/family, and [facility] all updated and agreeable to plan. Assessment:Pt who would benefit from Swing bed for continued IV abx until 11/20. Plan:Pt to discharge to [facility] unit today for continued IV abx via transport at 1700. All orders have been faxed and [facility] able to accept pt today. RN,UC,pt/family, and [facility] all updated and agreeable to plan. RAZ Luna
--- NOTE | 2016-10-20 17:36 | NUR ---
Discharge Patient discharge to [facility] with all belongings at 1724. Gave Nurse to Nurse report to [facility]. Vitals stable. Patient left floor via cabulance on his own two feet accompanied by cabulance [place] truck driver with no signs of distress.
== END 2016-10-20 17:16 | disposition swing bed (61) | DRG 871 ==
LOC: SED 12:55 → PCC 17:47 → MPC 10-06 19:46
PROVIDERS: ADMIT Hospitalist; ATTEND Hospitalist
DX: A41.01 Sepsis due to Methicillin susceptible Staphylococcus aureus (principal); I33.0 Acute and subacute infective endocarditis; I26.90 Septic pulmonary embolism without acute cor pulmonale; I47.2 Ventricular tachycardia; E87.2 Acidosis; F11.20 Opioid dependence, uncomplicated; E87.1 Hypo-osmolality and hyponatremia; N10 Acute pyelonephritis; B95.61 Methicillin susceptible Staphylococcus aureus infection as the cause of diseases classified elsewhere; F17.210 Nicotine dependence, cigarettes, uncomplicated; F15.10 Other stimulant abuse, uncomplicated; E86.9 Volume depletion, unspecified; B19.20 Unspecified viral hepatitis C without hepatic coma; D63.8 Anemia in other chronic diseases classified elsewhere